=== PATIENT | male | born 1965 | race African-American/Black ===

== ENCOUNTER 2019-04-07 17:23 | Inpatient (IN) | payer BC, OTHER, MEDICAID ==
[~2019-04-07] VITALS: Ht 188 cm; Wt 79.8 kg
--- NOTE | 2019-04-07 17:26 | NUR ---
Patient to ER bed 3 to gown for evaluation. Side rails up. Report given to Eva WATSON.
[2019-04-07 17:27] VITALS: BP_SYST 145
--- NOTE | 2019-04-07 17:30 | NUR ---
Dr. Rosenbaum @ bedside for examination.
--- NOTE | 2019-04-07 17:40 | NUR ---
Patient brought in by ambulance d/t abdominal distention. Patient states he does not have any pain but patient appeared to be grimacing during assessment. Per report, patient has no nausea or vomiting. Patient able to communicate but is not able to answer certain questions. Son @ bedside. Will continue to monitor.
[2019-04-07 18:21] LABS: CALCIUM 9.6 mg/dL (8.4-11.0); CREATININE 0.8 mg/dL (0.55-1.30); POTASSIUM 3.8 mmol/L (3.5-5.1)
[2019-04-07 18:24] LABS: HEMOGLOBIN 12.6 g/dL (14.0-18.0); MEAN CORPUSCULAR HEMOGLOBIN 26 pg (27-31); MEAN CORPUSCULAR HGB CONC 32 % (32-36); MEAN CORPUSCULAR VOLUME 81 fL (79.0-98.0); RED BLOOD CELL COUNT(AUTO) 4.85 MIL/uL (4.2-6.2); RED CELL DISTRIBUTION WIDTH 14.9 % (9.0-15.0); WHITE BLOOD COUNT (AUTO) 5.8 K/uL (4.8-10.8)
[2019-04-07 18:25] LABS: ALBUMIN 2.2 g/dL (3.4-4.8); BASOPHILS % (AUTO) 0.4 % (0.0-2.0); EOSINOPHILS # (AUTO) 0.2 K/uL (0.0-0.4); EOSINOPHILS % (AUTO) 3.9 % (0.0-4.0); LYMPHOCYTES # (AUTO) 0.8 K/uL (1.0-5.5); LYMPHOCYTES % (AUTO) 13.4 % (20.5-51.5); MONOCYTES # (AUTO) 0.7 K/uL (0.0-1.0); MONOCYTES % (AUTO) 11.7 % (1.7-9.3); NEUTROPHILS # (AUTO) 4.1 K/uL (1.8-7.7); NEUTROPHILS % (AUTO) 70.6 % (40.0-70.0); PLATELET COUNT (AUTO) 238 K/uL (130-430); PROTHROMBIN TIME 9.9 SECS (9.5-12.5); TOTAL BILIRUBIN 0.3 mg/dL (0.0-1.0)
[2019-04-07] MEDS ORDERED: PIPERACILLIN/TAZO 3.375 GM in NS 50 ML IV ONE (19:00)
[2019-04-07] MEDS ORDERED: metroNIDAZOLE 500 mg/NS 100 ML IV ONE (19:00)
--- NOTE | 2019-04-07 19:10 | NUR ---
Patient will be admitted to care of Dr. Crawford. Admitted to Telemetry unit. Will go to room 114A. Summary report printed. Report will be given at bedside.
[2019-04-07 19:15] LABS: BILIRUBIN,URINE NEGATIVE (NEGATIVE); BLOOD, URINE NEGATIVE (NEGATIVE); CLARITY/URINE CLOUDY (CLEAR); COLOR,URINE YELLOW (YELLOW); GLUCOSE,URINE NEGATIVE (NEGATIVE); KETONES,URINE TRACE (NEGATIVE); LEUKOCYTE ESTERASE ,URINE 2+ (NEGATIVE); NITRITE, URINE NEGATIVE (NEGATIVE); PROTEIN URINE 2+ (NEGATIVE)
--- NOTE | 2019-04-07 19:20 | NUR ---
End of life care decisions discussed with by Dr. Rosenbaum. Opportunity for questions and concerns addressed. Patient's code status is FULL CODE, per copy of POLST paperwork completed and placed in chart.
[2019-04-07] MEDS ORDERED: CLOP300T2 PO (19:24)
[2019-04-07] MEDS ORDERED: LORA10TA7 PO (19:24)
[2019-04-07] MEDS ORDERED: LIP10 PO (19:24)
[2019-04-07] MEDS ORDERED: AMLO5TAB4 PO (19:24)
[2019-04-07] MEDS ORDERED: LEVE500T53 PO (19:24)
[2019-04-07] MEDS ORDERED: BACL10TA PO (19:24)
[2019-04-07] MEDS ORDERED: HYDR-4272 PO (19:24)
[2019-04-07] MEDS ORDERED: POLY17PO4 GT (19:24)
[2019-04-07] MEDS ORDERED: TYLL650 GT (19:24)
[2019-04-07] MEDS ORDERED: XALEYE OP (19:24)
[2019-04-07] MEDS ORDERED: SSREG SUBCUT (19:24)
[2019-04-07] MEDS ORDERED: ANT30 GT (19:24)
[2019-04-07] MEDS ORDERED: MOM PO (19:24)
[2019-04-07] MEDS ORDERED: FAMO20TA8 GT (19:24)
[2019-04-07] MEDS ORDERED: TIMO5DRO15 OP (19:24)
[2019-04-07] MEDS ORDERED: PHEN100O4 PO (19:24)
[2019-04-07] MEDS ORDERED: INSU100V11 SQ ×2 (19:24)
--- NOTE | 2019-04-07 19:24 | NUR ---
Medication reconciliation completed based upon med list sent with patient from SNF.
[2019-04-07] MEDS ORDERED: PIPERACILLIN/TAZOBACTAM 3.375 GM/VIAL (ZOSYN) IV ONE (19:35)
[2019-04-07 19:45] LABS: BACTERIA,URINE MANY /HPF (None Seen); RBC,URINE 0-3 /HPF (0-3); WBC,URINE 20-50 /HPF (0-3)
[2019-04-07 19:46] LABS: MUCUS,URINE None Seen /LPF (None Seen); URINE AMORPHOUS PHOSPHATES 3+ /HPF (None Seen)
[2019-04-07] MEDS ORDERED: NACL 0.9% 1,000 ML IV SCH (20:00)
--- NOTE | 2019-04-07 20:02 | NUR ---
ADMISSION NOTE Received patient from ER via rosendo, received report from Tatiana WATSON. Patient admitted with diagnosis of PNA/Constipation to Room 114-A. Informed RN will be Kandy. Patient/family oriented to hospital routine, call light, toileting and safety-patient/family verbalized understanding.
[2019-04-07 20:17] VITALS: BP_SYST 158; BP_SYST 169
--- NOTE | 2019-04-07 21:52 | NUR ---
Provided incontinence care to the patient. Patient is now clean and dry, resting comfortably in bed. Received Glucerna 1.2 from director housekeeping. Patient started on GTUBE feeding at 70ml/hr per MD order.
[2019-04-07] MEDS ORDERED: ALBUTEROL SULFATE 0.083% 2.5 MG/3 ML VIAL.NEB INH PRN (23:30)
[2019-04-07] MEDS ORDERED: MORPHINE 2 MG/ML INJ. SYRINGE IVP PRN (23:30)
[2019-04-07] MEDS ORDERED: ONDANSETRON HCL 4 MG/2 ML VIAL IVP PRN (23:30)
[2019-04-07] MEDS ORDERED: BISACODYL 10 MG/SUPPOSITORY RC PRN (23:45)
[2019-04-07] MEDS ORDERED: MAG-AL HYDROX/SIMETH 30 ML UDC GT PRN (23:45)
[2019-04-07] MEDS ORDERED: ACETAMINOPHEN 650 MG/20.3 ML UDC GT PRN (23:45)
[2019-04-07] MEDS ORDERED: MILK OF MAGNESIA 30 ML UDC PO PRN (23:45)
[2019-04-07 23:49] VITALS: BP_SYST 153
[2019-04-08] MEDS ORDERED: PHENYTOIN 100 MG/4 ML UDC (DILANTIN) PO SCH
--- NOTE | 2019-04-08 | NUR ---
PATIENT RESTING COMFORTABLY IN BED, AWAKE. NO SOB, NO ACUTE DISTRESS, NO SIGNS OF PAIN OR FACIAL GRIMACING NOTED. IVF INFUSING AT THE ORDERED RATE, SEE EMAR. BED IS LOCKED, IN THE LOWEST POSITION, 2X SIDE RAILS UP, BED ALARM IS ON. CALL LIGHT IS WITHIN REACH.
[2019-04-08] MEDS ORDERED: PIPERACILLIN/TAZOBACTAM 3.375 GM/VIAL (ZOSYN) IV ONE (00:33)
[2019-04-08] MEDS ORDERED: AZITHROMYCIN 500 MG/VIAL (ZITHROMAX) IV ONE (00:33)
[2019-04-08] MEDS: AZITHROMYCIN 500 MG in NS 250 ML IV SCH (00:38)
[2019-04-08] MEDS: PIPERACILLIN/TAZO 3.375/DEX-IS 50 ML IV SCH ×4 (00:38→18:36)
[2019-04-08 01:24] VITALS: BP_SYST 153
--- NOTE | 2019-04-08 02:00 | NUR ---
Patient provided incontinence care as needed. Now clean and dry, resting comfortably in bed. Call light within reach.
[2019-04-08] MEDS: NACL 0.9% 1,000 ML IV SCH ×3 (02:42→16:07)
--- NOTE | 2019-04-08 04:07 | NUR ---
Patient resting in bed, eyes closed. Breathing even and unlabored, visible chest rise and fall noted. No SOB, no acute distress, no signs of pain or facial grimacing noted. IVF infusing at ordered rate, see eMAR. gtube feeding infusing at ordered rate, see eMAR. Bed is locked, lowest position, 2x side rails up, bed alarm on. seizure pads in place. call light within reach.
--- NOTE | 2019-04-08 06:33 | NUR ---
CLOSING NOTES PATIENT RESTING COMFORTABLY IN BED, AAOX1. BREATHING EVEN AND UNLABORED WITH VISIBLE CHEST RISE AND FALL NOTED. NO SOB, NO ACUTE DISTRESS, NO SIGNS OF PAIN OR FACIAL GRIMACING NOTED. IV SITE IS INTACT, DRESSING CLEAN AND DRY, CURRENTLY INFUSING IVF PER MD ORDER, SEE EMAR FOR DETAILS. PROVIDED INCONTINENCE CARE TO THE PATIENT NEEDED. PATIENT IS NOW CLEAN AND DRY. BED IS LOCKED, IN THE LOWEST POSITION, 2X SIDE RAILS UP, BED ALARM IS ON. CALL LIGHT IS WITHIN REACH. FALL, SEIZURE, ASPIRATION, AND SAFETY PRECAUTIONS MAINTAINED. ALL NEEDS HAVE BEEN MET DURING THIS SHIFT. WILL ENDORSE CARE TO ONCOMING DAYSHIFT NURSE.
[2019-04-08 07:00] LABS: ALBUMIN 1.8 g/dL (3.4-4.8); CALCIUM 8.8 mg/dL (8.4-11.0); CREATININE 0.81 mg/dL (0.55-1.30); POTASSIUM 4.3 mmol/L (3.5-5.1); TOTAL BILIRUBIN 0.3 mg/dL (0.0-1.0)
[2019-04-08 07:13] LABS: BASOPHILS % (AUTO) 0.5 % (0.0-2.0); EOSINOPHILS # (AUTO) 0.3 K/uL (0.0-0.4); EOSINOPHILS % (AUTO) 5.6 % (0.0-4.0); HEMATOCRIT 33.5 % (36-54); HEMOGLOBIN 10.9 g/dL (14.0-18.0); LYMPHOCYTES # (AUTO) 0.9 K/uL (1.0-5.5); LYMPHOCYTES % (AUTO) 16.5 % (20.5-51.5); MEAN CORPUSCULAR HEMOGLOBIN 26 pg (27-31); MEAN CORPUSCULAR HGB CONC 33 % (32-36); MEAN CORPUSCULAR VOLUME 81 fL (79.0-98.0); MONOCYTES # (AUTO) 0.7 K/uL (0.0-1.0); MONOCYTES % (AUTO) 14.6 % (1.7-9.3); NEUTROPHILS # (AUTO) 3.2 K/uL (1.8-7.7); NEUTROPHILS % (AUTO) 62.8 % (40.0-70.0); PLATELET COUNT (AUTO) 224 K/uL (130-430); RED BLOOD CELL COUNT(AUTO) 4.15 MIL/uL (4.2-6.2); RED CELL DISTRIBUTION WIDTH 15.1 % (9.0-15.0); WHITE BLOOD COUNT (AUTO) 5.2 K/uL (4.8-10.8)
[2019-04-08 07:37] VITALS: BP_SYST 160
--- NOTE | 2019-04-08 07:39 | NUR ---
opening notes: received pt in bed, pt is aaox1, bp high at 160/89, no s/s of pain, no sob, no resp distress. pt blurt out clear curse words but does not answers to questions. abdomen slight distended, soft. no s/s of pain pain to palpation. active bowel sounds. g-tube feeding running well. no leak noted, residual about 45 cc. safety precaution in place. call light in reach. bed in low position. seizure precaution in place. side rails padded. will cont to monitor. pt.
[2019-04-08] MEDS ORDERED: LORATADINE 10 MG TABLET PO SCH (09:00)
[2019-04-08] MEDS ORDERED: POLYETHYLENE GLYCOL 3350, 17 GM/ POWD.PACK GT SCH (09:00)
[2019-04-08] MEDS ORDERED: BACLOFEN 10 MG TABLET PO SCH (09:00)
[2019-04-08] MEDS ORDERED: amLODIPine BESYLATE 5 MG TABLET PO SCH (09:00)
[2019-04-08] MEDS ORDERED: ATORVASTATIN 10 MG TABLET PO SCH (09:00)
[2019-04-08] MEDS ORDERED: CLOPIDOGREL BISULFATE 75 MG TABLET PO SCH (09:00)
[2019-04-08] MEDS: levETIRAcetam 500 MG TABLET PO SCH ×2 (09:03→21:47)
[2019-04-08] MEDS: PHENYTOIN 100 MG/4 ML UDC (DILANTIN) PO SCH ×2 (09:03→21:47)
[2019-04-08] MEDS: FAMOTIDINE 20 MG TABLET GT SCH (09:03)
--- NOTE | 2019-04-08 09:54 | NUR ---
Nutrition Update Jace Scale 15 noted. Pt admitted for pneumonia, constipation. Diet: Glucerna 1.2 at 70 ml/hr x20 HRS ONLY, Free Water Flush: 100 via GT BMI: 22.6 kg/m2 RD to follow per nutrition care standards.
[2019-04-08] MEDS ORDERED: MINERAL OIL 30 ML UDC PO ONE (10:15)
[2019-04-08] MEDS ORDERED: POLYETHYLENE GLYCOL 3350, 17 GM/ POWD.PACK PO ONE (10:15)
[2019-04-08] MEDS: INSULIN REGULAR, HUMAN 100 UNITS/ML, 10 ML VIAL (novoLIN R) SUBCUT PRN ×3 (11:18→22:39)
[2019-04-08 12:00] VITALS: BP_SYST 151
[2019-04-08 15:41] VITALS: BP_SYST 173
[2019-04-08] MEDS: VANCOMYCIN HCL 1,500 MG in NS 250 ML IV SCH (16:06)
--- NOTE | 2019-04-08 16:22 | NUR ---
CONSULT REASON FOR CONSULT: ABDOMINAL PAIN PERSON I SPOKE WITH: RM CONSULTING PHYSICIAN: DR. MURRAY [facility] EDUCATION COORDINATOR PHONE NUMBER: [phone] ORDERING PHYSICIAN: DR. VALVERDE
--- NOTE | 2019-04-08 16:25 | NUR ---
CONSULT REASON FOR CONSULT: PNEUMONIA PERSON I SPOKE WITH: SAM CONSULTING PHYSICIAN: DR. CARRASQUILLO EVENT MARKETING INTERN PHYSICIAN: [phone] ORDERING PHYSICIAN: DR. VALVERDE
[2019-04-08] MEDS ORDERED: MINERAL OIL 133 ML ENEMA RC ONE (17:45)
[2019-04-08 19:00] VITALS: BP_SYST 159
--- NOTE | 2019-04-08 19:15 | NUR ---
change of shift.pt.presents quiescent affect;calm.pt.presents g-tube;feed infusing.pt.presents iv acces;lt.forearm;iv fluid infusing.pt.present bedrest status;activity.pt.s/p cva;pt.presents rt.sided weakness.call light/telephone w/in the reach of the pt.family@bedside;/son. Addendum: 04/09/19 at 0624 by Josef Kay RN pt.presents sx /epilepsy history.sx precautions inplace.
--- NOTE | 2019-04-08 19:30 | NUR ---
CLOSING NOTES, PT ENDORSED TO NIGHT RN. PT HAS BEEN STABLE, NO C/O PAIN. NO SOB, ALL ABX GIVEN. PT ABDOMEN STILL BLOATED. FAMILY AT BEDSIDE THIS PM AND WAS UPDATED WITH PT'S STATUS. PT'S SPOUSE AT BEDSIDE AT THIS TIME UPDATED WITH PT'S POC.
[2019-04-08 20:00] VITALS: BP_SYST 159
--- NOTE | 2019-04-08 20:00 | NUR ---
pt.assessed:v/s assessed:values w/in normal limits.pt.assessed for cleanliness;pt.repositioned.g-tube assessed;intact;patent. g-tube feed infusing.iv access;locatied;ltforearm;wrapped.intact;patent;iv fluids infusing.general status stable.respiratory stratu stable;unlabored.call light./telephone placed w/in the reach of the pt:lt.side;hand.
[2019-04-08] MEDS ORDERED: MINERAL OIL 30 ML UDC PO SCH (21:00)
--- NOTE | 2019-04-08 21:00 | NUR ---
2100p medications administered via g-tube;administered absent obstruction.sx medications administered.
[2019-04-08] MEDS: [UNRECOGNIZED DRUG - REMARK] PO SCH (21:48)
[2019-04-09] VITALS (7 sets, daily range): BP systolic 130–161
--- NOTE | 2019-04-09 | NUR ---
pt.assessed.v/s assessed;values w/in normal limits.pt.assessed for cleanliness.pt.cleaned.g-tube assessed.intact;patent; residual scant;5ml.pt.repositioned.iv access accessed;intact;patent.general status stable.respiratory status stable. call light/telephone placed w/in the reach of the pt.
[2019-04-09] MEDS: AZITHROMYCIN 500 MG in NS 250 ML IV SCH (00:04)
[2019-04-09] MEDS: PIPERACILLIN/TAZO 3.375/DEX-IS 50 ML IV SCH ×3 (00:05→11:30)
--- NOTE | 2019-04-09 02:00 | NUR ---
pt.assessed.pt.assessed for cleanliness.pt.repositioned.g-tube assessed.intact;patent;g-tube feed infusing.iv access assessed; intact;patent;iv fluids infusing.general status stable.respiratory status stable.call light/telephone placed w/in the reach of the pt.
--- NOTE | 2019-04-09 04:00 | NUR ---
pt.assessed.pt.assessed for cleanliness.pt.repositioned.g-tube assessed intact;patent;g-tube feed infusing.iv access intact; patent;iv fluids infusing.general status stable.respiratory status stable.call light/telephone placed w/in the reach of the pt.
[2019-04-09] MEDS: VANCOMYCIN HCL 1,500 MG in NS 250 ML IV SCH ×2 (04:17→16:12)
[2019-04-09] MEDS: [UNRECOGNIZED DRUG - REMARK] PO SCH (05:48)
[2019-04-09] MEDS: INSULIN REGULAR, HUMAN 100 UNITS/ML, 10 ML VIAL (novoLIN R) SUBCUT PRN ×4 (05:58→20:27)
--- NOTE | 2019-04-09 06:04 | NUR ---
pt.assessed.pt.presents quiescent affect;pt.assessed for cleanliness.pt.cleaned.g-tube assessed feed infusing. pt.repositioned iv fluids infusing.i have assessed the blood glucose;222mg/dl.i have administered 4-units regular insulin.call light/telephone placed w/in the reach of the pt.
[2019-04-09 06:39] LABS: BASOPHILS % (AUTO) 0.3 % (0.0-2.0); EOSINOPHILS # (AUTO) 0.3 K/uL (0.0-0.4); EOSINOPHILS % (AUTO) 6.7 % (0.0-4.0); HEMATOCRIT 36.3 % (36-54); LYMPHOCYTES # (AUTO) 0.7 K/uL (1.0-5.5); LYMPHOCYTES % (AUTO) 17.7 % (20.5-51.5); MEAN CORPUSCULAR HEMOGLOBIN 26 pg (27-31); MEAN CORPUSCULAR HGB CONC 33 % (32-36); MEAN CORPUSCULAR VOLUME 79 fL (79.0-98.0); MONOCYTES # (AUTO) 0.6 K/uL (0.0-1.0); MONOCYTES % (AUTO) 16.7 % (1.7-9.3); NEUTROPHILS # (AUTO) 2.2 K/uL (1.8-7.7); NEUTROPHILS % (AUTO) 58.6 % (40.0-70.0); PLATELET COUNT (AUTO) 224 K/uL (130-430); RED BLOOD CELL COUNT(AUTO) 4.58 MIL/uL (4.2-6.2); WHITE BLOOD COUNT (AUTO) 3.8 K/uL (4.8-10.8)
[2019-04-09 06:55] LABS: ALBUMIN 1.9 g/dL (3.4-4.8); CREATININE 0.78 mg/dL (0.55-1.30); POTASSIUM 4.1 mmol/L (3.5-5.1); TOTAL BILIRUBIN 0.4 mg/dL (0.0-1.0)
--- NOTE | 2019-04-09 07:18 | NUR ---
Opening Note received bedside SBAR report from cnc machinist 2nd shift RN, patient resting in bed, respirations even and unlabored on room air, no acute distress noted, side rails padded, room close to nurses station, educated patient on use of call light and asked to call for assistance, patient verbalized understanding, call light in reach, bed in low and locked position, bed alarm on.
[2019-04-09] MEDS ORDERED: MILK OF MAGNESIA 30 ML UDC GT PRN (07:48)
[2019-04-09] MEDS ORDERED: [UNRECOGNIZED DRUG - REMARK] GT SCH (07:49)
--- NOTE | 2019-04-09 08:01 | NUR ---
Physician Rounds Dr. Smith at bedside examining patient, patient to have KUB today, per Dr. Smith if KUB shows fecal impaction then manual disimpaction and enema should be given after.
[2019-04-09] MEDS ORDERED: POLYETHYLENE GLYCOL 3350, 17 GM/ POWD.PACK PO SCH (09:00)
[2019-04-09] MEDS ORDERED: POLYETHYLENE GLYCOL 3350, 17 GM/ POWD.PACK GT SCH (09:00)
--- NOTE | 2019-04-09 09:08 | NUR ---
Physician Rounds Dr. Butcher at bedside examining patient.
[2019-04-09] MEDS: PHENYTOIN 100 MG/4 ML UDC (DILANTIN) GT SCH ×2 (09:12→20:20)
[2019-04-09] MEDS: levETIRAcetam 500 MG TABLET GT SCH ×2 (09:13→20:21)
[2019-04-09] MEDS: MINERAL OIL 30 ML UDC GT SCH ×2 (09:13→20:23)
[2019-04-09] MEDS: BACLOFEN 10 MG TABLET GT SCH (09:13)
[2019-04-09] MEDS: LORATADINE 10 MG TABLET GT SCH (09:13)
[2019-04-09] MEDS: FAMOTIDINE 20 MG TABLET GT SCH (09:13)
[2019-04-09] MEDS: ATORVASTATIN 10 MG TABLET GT SCH (09:14)
[2019-04-09] MEDS: CLOPIDOGREL BISULFATE 75 MG TABLET GT SCH (09:14)
[2019-04-09] MEDS: amLODIPine BESYLATE 5 MG TABLET GT SCH (09:14)
--- NOTE | 2019-04-09 09:38 | NUR ---
CONSULTATION PAGED REASON FOR CONSULTATION:SEPSIS WAS CONSULT CALLED?Y PERSON WHO WAS NOTIFIED:YONIS CONSULTING PHYSICIAN:MATT MITCHELL LOAN INTERVIEWER MORTGAGE SPECIALTY:ID LOAN INTERVIEWER MORTGAGE PHONE NUMBER:[phone] REQUESTING PHYSICIAN:JONATHAN TESFAYE
--- NOTE | 2019-04-09 10:48 | NUR ---
[facility] WAS CALL[facility] RE: VERIFY THE TUBE FEEDING - DIABETIC SOURCE @ 70 CC/H. SPOKE TO
--- NOTE | 2019-04-09 11:08 | NUR ---
RN Rounds patient resting in bed, no acute distress noted, no pain noted using FLACC scale.
--- NOTE | 2019-04-09 12:57 | NUR ---
Dietitian Recommendations *Recommend Glucerna 1.2 at 70ml/hr (goal rate for 24 hr), Prosource QD, FWF 150ml Q4H via GT. Provides: 2076 kcal, 116 gm protein and 2282ml free water daiily. Meets: 87% of upper end of estimated calories and 97% of upper end of estimated protein needs. *Increase fluids for constipation. Please see Nutritional Assessment for details. HI, RD
--- NOTE | 2019-04-09 12:58 | NUR ---
RN Rounds patient resting in bed, respirations even and unlabored on room air, no acute distress noted.
--- NOTE | 2019-04-09 14:02 | NUR ---
Physician Rounds Dr. Monroe at bedside examining patient.
[2019-04-09] MEDS ORDERED: FUROSEMIDE 20 MG/2 ML VIAL IVP ONE (14:30)
--- NOTE | 2019-04-09 16:21 | NUR ---
Tap water enema educated patient on purpose and procedure for tap water enema, patient verbalized understanding, tap water enema completed, patient had large amount of green loose stool, attempted manual disimpaction per orders, no solid stool present, patient cleaned and linen changed, repositioned patient, patient tolerated well, no acute distress noted.
--- NOTE | 2019-04-09 17:33 | NUR ---
Incontinent of bowel and bladder patient incontinent of bowel and bladder, patient cleaned and linen changed, repositioned patient, patient tolerated well, HOB elevated, heels elevated, no acute distress noted.
[2019-04-09] MEDS: AMPICILLIN SODIUM 1 GM in NS 50 ML IV SCH ×2 (17:51→23:37)
--- NOTE | 2019-04-09 18:22 | NUR ---
Tube Feeding new tube feeding and new tubing hung at this time, patient has zero residual from tube feeding, tube feeding infusing well, HOB elevated, no acute distress noted.
--- NOTE | 2019-04-09 19:00 | NUR ---
change of shift.pt.presents quiescent affect;calm.pt.present g-tube fed.pt.presents iv access.pt.presents hx;seizure/epilepsy activity;sx precaution in place.pt.presrtn bedbound activity status.general status stable.respiratory status stable;unlabored@room air.opt,presents hx;s/p cva;rt.sided hemiplegia.therefore;call light/telephone placed w/in the reach of th tp.lt.side;hand.
--- NOTE | 2019-04-09 19:20 | NUR ---
Closing Note bedside SBAR report given to receiving RN, patient resting in bed, no acute distress noted, HOB elevated, tube feeding infusing well, side rails padded, room close to nurses station, educated patient on use of call light and asked to call for assistance, patient verbalized understanding, call light in reach, bed in low and locked position, bed alarm on, care endorsed to mini shifter RN.
--- NOTE | 2019-04-09 20:00 | NUR ---
pt.assessed.v/s assessed:b/p values slight elevated.i have assessed the g-tube;intact;patent;g-tube feed infusing:rate;70ml/hr. i have assessed the iv access;intact;patent;iv fluids infusing.pt./assessed for cleanliness.pt.repositioned.general status stable. respiratory status stable.call light/telephone placed w/in the reach of the pt.lt.side;hand.pt.preset hx;s/p cva;rt.sided hemiplegia. speech slurred;unintelligible.
--- NOTE | 2019-04-09 21:00 | NUR ---
2100p medication administered via the g-tube;g-tube intact;patent:no resistance. g-tube feed residual minimal;5ml.
--- NOTE | 2019-04-09 22:00 | NUR ---
pt.assessed.pt.assessed for cleanliness.pt.cleaned.pt.repositioned.g-tube assessed;intact;patent;g-tube feed infusing iv access assessed intact;patent of fluids infusing.general status stable.respiratory status stale;unlabored. call light/telephone placed w/in the reach of the pt.lt.side;hand. Addendum: 04/10/19 at 0206 by Josef Kay RN i have cleansed the g-tube site.i have changed the g-tube dsg.
--- NOTE | 2019-04-10 | NUR ---
pt.assessed.v/s assessed;values w/in normal limits.b/p values noted.pt.assessed for cleanliness.pt.repositioned. g-tube assessed intact;patent;g-tube feed infusing.i assessed iv access;intact;patent;iv fluids infusing. general status stable.respiratory status stable;unlabored.call light./telephone placed w/in the reach of the pt. lt.side;hand.
--- NOTE | 2019-04-10 02:00 | NUR ---
pt.assessed.pt.assessed for cleanliness.pt,.repositioned.i have assessed the g-tube;intact;patent;g-tube feed infusing.i have assessed the iv access;intact;patent iv fluids infusing.general status stable.respiratory status stable;unlabored.call light/ telephone placed w/in the reach of the pt;lt.side;hand.
[2019-04-10] MEDS: VANCOMYCIN HCL 1,500 MG in NS 250 ML IV SCH (03:09)
--- NOTE | 2019-04-10 04:00 | NUR ---
pt.assessed.pt.assessed for cleanliness.pt.cleaned.pt.repositioned.i have assessed the g-tube intact;patent.i have administered the [id number]. i have assessed the iv access;intact;patent;iv fluids infusing.general status stable.respiratory status stable.call light/telephone placed w/in the reach of the pt.
[2019-04-10] MEDS: AMPICILLIN SODIUM 1 GM in NS 50 ML IV SCH ×4 (05:06→23:40)
[2019-04-10] MEDS: INSULIN REGULAR, HUMAN 100 UNITS/ML, 10 ML VIAL (novoLIN R) SUBCUT PRN ×4 (06:07→20:44)
--- NOTE | 2019-04-10 06:34 | NUR ---
pt.assessed.pt.assessed for cleanliness.pt.repositioned.g-tube assessed;intact;patent;g-tube feed infusing.iv access assessed intact;patent; iv fluids infusing.i have assessed the blood glucose;value;294mg/dl.i have administered 6-units;regular insulin.general status stable. respiratory status stable.call light/telephone placed /win the reach of the pt.lt.side;hand.
[2019-04-10 06:58] LABS: BASOPHILS % (AUTO) 0.7 % (0.0-2.0); EOSINOPHILS # (AUTO) 0.2 K/uL (0.0-0.4); EOSINOPHILS % (AUTO) 5.6 % (0.0-4.0); HEMATOCRIT 35.3 % (36-54); HEMOGLOBIN 11.7 g/dL (14.0-18.0); LYMPHOCYTES # (AUTO) 0.6 K/uL (1.0-5.5); LYMPHOCYTES % (AUTO) 16.4 % (20.5-51.5); MEAN CORPUSCULAR HEMOGLOBIN 26 pg (27-31); MEAN CORPUSCULAR HGB CONC 33 % (32-36); MEAN CORPUSCULAR VOLUME 80 fL (79.0-98.0); MONOCYTES # (AUTO) 0.6 K/uL (0.0-1.0); MONOCYTES % (AUTO) 16.6 % (1.7-9.3); NEUTROPHILS # (AUTO) 2.1 K/uL (1.8-7.7); NEUTROPHILS % (AUTO) 60.7 % (40.0-70.0); PLATELET COUNT (AUTO) 236 K/uL (130-430); RED BLOOD CELL COUNT(AUTO) 4.41 MIL/uL (4.2-6.2); RED CELL DISTRIBUTION WIDTH 14.8 % (9.0-15.0); WHITE BLOOD COUNT (AUTO) 3.5 K/uL (4.8-10.8)
--- NOTE | 2019-04-10 07:36 | NUR ---
PATIENT IS AWAKE, A/OX1 . ON ROOM AIR. IV ON LEFT FA, #20. SZ PADS COVERING THE SIDE RAILS. BR REST. POC IS INSTRUCTED. BED LOCKED AT THE LOWEST POSITION, CALL LIGHT IN PLACE, WILL CONTINUE TO MONITOR.
[2019-04-10 07:42] LABS: CALCIUM 9.1 mg/dL (8.4-11.0); CREATININE 0.8 mg/dL (0.55-1.30); POTASSIUM 4.3 mmol/L (3.5-5.1)
[2019-04-10] MEDS ORDERED: GOLYTELY / COLYTE SOLUTION 4 LITERS PO ONE (08:00)
[2019-04-10] MEDS: CLOPIDOGREL BISULFATE 75 MG TABLET GT SCH (08:17)
[2019-04-10] MEDS: FAMOTIDINE 20 MG TABLET GT SCH (08:17)
[2019-04-10] MEDS: PHENYTOIN 100 MG/4 ML UDC (DILANTIN) GT SCH ×2 (08:17→20:28)
[2019-04-10] MEDS: amLODIPine BESYLATE 5 MG TABLET GT SCH (08:18)
[2019-04-10] MEDS: ATORVASTATIN 10 MG TABLET GT SCH (08:18)
[2019-04-10] MEDS: MINERAL OIL 30 ML UDC GT SCH ×2 (08:18→20:28)
[2019-04-10] MEDS: levETIRAcetam 500 MG TABLET GT SCH ×2 (08:18→20:29)
[2019-04-10] MEDS: LORATADINE 10 MG TABLET GT SCH (08:18)
[2019-04-10] MEDS: BACLOFEN 10 MG TABLET GT SCH (08:18)
--- NOTE | 2019-04-10 10:00 | NUR ---
Patient is turned and repositioned for comfort.
[2019-04-10 11:30] VITALS: BP_SYST 155
--- NOTE | 2019-04-10 12:00 | NUR ---
Blood sugar 302. 8 units is given per sliding scale.
--- NOTE | 2019-04-10 14:00 | NUR ---
Patient passed a BM. turned and repositioned for comfort.
--- NOTE | 2019-04-10 16:16 | NUR ---
GI DOCTOR PAGED CALLED [facility] AT [phone]SNYDER WRIGHT ADAM COMPOUNDER FLAVORINGS.
[2019-04-10 16:21] VITALS: BP_SYST 163
--- NOTE | 2019-04-10 16:46 | NUR ---
Dr. Smith called back. Instructed to finish the prescribed dosage of Golytely to disimpact the fecal impaction.
--- NOTE | 2019-04-10 17:20 | NUR ---
blood sugar 190. 2 units of RI will be given per sliding scale.
[2019-04-10] MEDS: VANCOMYCIN HCL 1,250 MG in NS 250 ML IV SCH (17:39)
[2019-04-10] MEDS: cloNIDine HCL 0.1 MG TABLET PO PRN ×2 (17:58→23:41)
--- NOTE | 2019-04-10 18:50 | NUR ---
1350ml of Golytely is given from 30 to now. Will delegate to next shift.
--- NOTE | 2019-04-10 19:35 | NUR ---
ROUNDS PATIENT RESTING COMFORTABLY IN BED, VITALS STABLE, CONFUSED WITH GARBLED WORDS, NO SIGNS OF ANY PAIN AND DISCOMFORT NOTED. ASSESSMENT DONE AND DOCUMENTED. SEE FLOWSHEET. NEEDS ATTENDED TO. TURNED AND REPOSITIONED AND MADE COMFORTABLE. SAFETY AND FALL PRECAUTION MEASURES IN PLACED. BED IN LOW AND LOCKED POSITION. BED ALARM ON. CALL LIGHT PLACED WITHIN REACH.
[2019-04-10 19:48] VITALS: BP_SYST 162
--- NOTE | 2019-04-10 21:13 | NUR ---
MEDICATION DUE MEDICATIONS GIVEN PER G TUBE ORDERED, TOLERATED WELL. WILL CONTINUE TO MONITOR.
[2019-04-10 23:55] VITALS: BP_SYST 171
--- NOTE | 2019-04-11 00:12 | NUR ---
PATIENT RESTING: Patient resting quietly. No acute distress noted. Vital signs within normal range.
--- NOTE | 2019-04-11 02:13 | NUR ---
ROUNDS PATIENT ASLEEP, NOT IN DISTRESS, RESPIRATIONS EVEN AND UNLABORED. WILL CONTINUE TO MONITOR.
--- NOTE | 2019-04-11 04:15 | NUR ---
ROUNDS PATIENT ASLEEP, VITALS STABLE, NO SIGNS OF ANY PAIN AND DISCOMFORT NOTED. WILL CONTINUE TO MONITOR.
[2019-04-11] MEDS: AMPICILLIN SODIUM 1 GM in NS 50 ML IV SCH ×2 (05:14→12:24)
[2019-04-11] MEDS: VANCOMYCIN HCL 1,250 MG in NS 250 ML IV SCH (06:00)
--- NOTE | 2019-04-11 06:58 | NUR ---
CLOSING NOTES PATIENT RESTING AT THIS TIME, VITALS STABLE, NO SIGNS OF ANY PAIN NOTED. ALL NEEDS ATTENDED TO. SAFETY MEASURES MAINTAINED. WILL ENDORSE TO INCOMING SHIFT NURSE.
[2019-04-11 08:00] VITALS: BP_SYST 154
[2019-04-11] MEDS: FAMOTIDINE 20 MG TABLET GT SCH (08:48)
[2019-04-11] MEDS: BACLOFEN 10 MG TABLET GT SCH (08:48)
[2019-04-11] MEDS: ATORVASTATIN 10 MG TABLET GT SCH (08:48)
[2019-04-11] MEDS: CLOPIDOGREL BISULFATE 75 MG TABLET GT SCH (08:48)
[2019-04-11] MEDS: amLODIPine BESYLATE 5 MG TABLET GT SCH (08:49)
[2019-04-11] MEDS: levETIRAcetam 500 MG TABLET GT SCH (08:52)
[2019-04-11] MEDS: PHENYTOIN 100 MG/4 ML UDC (DILANTIN) GT SCH (08:52)
[2019-04-11] MEDS: LORATADINE 10 MG TABLET GT SCH (08:52)
[2019-04-11] MEDS: MINERAL OIL 30 ML UDC GT SCH (08:53)
[2019-04-11] MEDS ORDERED: POLYETHYLENE GLYCOL 3350, 17 GM/ POWD.PACK PO SCH (09:00)
[2019-04-11] MEDS ORDERED: NACL 0.9% 1,000 ML IV ONE (11:30)
[2019-04-11] MEDS: INSULIN REGULAR, HUMAN 100 UNITS/ML, 10 ML VIAL (novoLIN R) SUBCUT PRN (12:33)
[2019-04-11 12:44] VITALS: BP_SYST 143
--- NOTE | 2019-04-11 12:59 | NUR ---
SNF Availability: Patient is going back to [facility] - Room [address] [facility] [place] [address] (Nurse to call for report) Medic 1 ambulance will picker at 4:45pm Nurse Leonid made aware. Ladonna Wilson, HCP [employer] Test Grader [phone]
--- NOTE | 2019-04-11 13:03 | NUR ---
Nutrition F/U RD reviewed pt's current EMR including diet Hx, physician notes, nursing notes, pertinent labs/meds/procedures, care trends and care activity. Current Diet Order: Glucerna 1.2 at 70ml/hr x 20 hrs, FWF 100ml via GT x 3 days Subjective information: Pt seen in bed, awake but appeared confused. TF hung but not infusing during visit. Per RN report, TF has been held since last night, d/t diarrhea. RN also reported that pt had golytely yesterday and has only taken effect early this morning. No residual noted. Water flushes provided every [address] asked RN to clarify FWF and place on EN regimen order. RD also asked RN to re-start EN. RN to verify w/ MD. RD called MD office for EN rec today and 04/09, awaiting MD call back. Estimated Energy Expenditure (kcals/day) 7125-3690 kcal/day (25-30 kcal/kg CBW for maintenance) Estimated Protein Required (g/day) 80-120 gm/day (1-1.5 gmkg CBW for skin integrity) Estimated Fluid Required (l/day) 2.4-2.8 L/day (30-35 kcal/kg CBW for constipation) Problem/Etiology/Signs/Symptoms Constipation r/t unknown etiology AEB primary Dx of severe constipation and c/o abd discomfort [facility]. (*ongoing) Increased protein needs r/t skin integrity AEB skin impairments to lower sacrum and low Jace score. (*ongoing) Inadequate EN infusion r/t procedure AEB EN intake meeting <75% of estimated needs and EN hung but not infusing at time of visit. (*new) Expected Outcomes/Goals Monitor EN regimen tolerance and intake w/ goal of pt meeting at least 75% of estimated needs, labs trending WNL, normal GI function, skin integrity/wt maintenance. Dietitian Recommendations *Recommend Glucerna 1.2 at 70ml/hr (goal rate for 24 hr), Prosource QD, FWF 150ml Q4H via GT. Provides: 2076 kcal, 116 gm protein and 2282ml free water daiily. Meets: 87% of upper end of estimated calories and 97% of upper end of estimated protein needs. *Increase fluids to rehydrate. Follow Up High Risk: F/U in 2-3days
--- NOTE | 2019-04-11 13:11 | NUR ---
Dietitian Recommendations *Recommend Glucerna 1.2 at 70ml/hr (goal rate for 24 hr), Prosource QD, FWF 150ml Q4H via GT. Provides: 2076 kcal, 116 gm protein and 2282ml free water daiily. Meets: 87% of upper end of estimated calories and 97% of upper end of estimated protein needs. *Increase fluids to rehydrate. Please see Nutrition F/U not for details HI, RD
[2019-04-11 13:20] VITALS: BP_SYST 154
--- NOTE | 2019-04-11 17:10 | NUR ---
PT TRANSFERRED Report given to JAI. Transfer packet with Transfer Orders and Medication Reconciliation form given to EMT with report. Exitcare provided. [facility] ID band removed, replaced with ID band with pt's name and . IV catheter removed, intact and dressing applied, no active bleeding. All belongings sent with patient. Patient left floor via gurney escorted by EMT in no distress.
[2019-04-11 17:16] VITALS: BP_SYST 146
== END 2019-04-11 17:25 | DRG 871 ==
LOC: SED 17:23 → STU 19:04 → SMU 04-08 21:35
PROVIDERS: ADMIT Internal Medicine; ATTEND Internal Medicine
DX: A41.9 Sepsis, unspecified organism (principal); J69.0 Pneumonitis due to inhalation of food and vomit; J96.90 Respiratory failure, unspecified, unspecified whether with hypoxia or hypercapnia; N39.0 Urinary tract infection, site not specified; E87.1 Hypo-osmolality and hyponatremia; E46 Unspecified protein-calorie malnutrition; I69.351 Hemiplegia and hemiparesis following cerebral infarction affecting right dominant side; D64.9 Anemia, unspecified; B95.1 Streptococcus, group B, as the cause of diseases classified elsewhere; B95.7 Other staphylococcus as the cause of diseases classified elsewhere; E11.51 Type 2 diabetes mellitus with diabetic peripheral angiopathy without gangrene; E78.5 Hyperlipidemia, unspecified; E86.0 Dehydration; G40.909 Epilepsy, unspecified, not intractable, without status epilepticus; H40.9 Unspecified glaucoma; I10 Essential (primary) hypertension; K56.41 Fecal impaction; R13.10 Dysphagia, unspecified; F32.9 Major depressive disorder, single episode, unspecified; E11.39 Type 2 diabetes mellitus with other diabetic ophthalmic complication; Z79.4 Long term (current) use of insulin; H42 Glaucoma in diseases classified elsewhere; Z68.22 Body mass index [BMI] 22.0-22.9, adult
CPT/HCPCS: 36415; 71045; 74018; 80048; 80053; 80202-TC; 81000-TC; 82962; 83605; 83880; 84484; 85025; 85610-TC; 85730-TC; 87040-TC; 87081; 87086; 87186-TC; 93005; 93306; 94760; 96361; 96374; 96375; 99285; G0378; J0290; J0456; J1815; J1940; J2543; J3370; J3490; J7030; J7050; J7060

== ENCOUNTER 2019-04-16 20:39 | Inpatient (IN) | payer BC, OTHER, MEDICAID ==
[~2019-04-16] VITALS: Ht 188 cm; Wt 84.8 kg
[~2019-04-16 20:39] MED LIST: AMLO5TAB4 PO; ANT30 GT; BACL10TA PO; CLOP300T2 PO; FAMO20TA8 GT; HYDR-4272 PO; INSU100V11 SQ; LEVE500T53 PO; LIP10 PO; LORA10TA7 PO; MOM PO; PHEN100O4 PO; POLY17PO4 GT; SSREG SUBCUT; TIMO5DRO15 OP; TYLL650 GT; XALEYE OP
--- NOTE | 2019-04-16 20:43 | NUR ---
Placed in room 7 . Placed on awake overnight monitor, blood pressure machine and pulse oximeter. To gown for exam. Side rails up. Report given to Holli WATSON.
[2019-04-16] MEDS ORDERED: PIPERACILLIN/TAZO 3.38 GM in D5W 50 ML IV ONE (20:45)
[2019-04-16] MEDS ORDERED: NS 1000 ML IV.SOLN IV ONE (20:45)
[2019-04-16] MEDS ORDERED: VANCOMYCIN HCL 1,000 MG in D5W 250 ML IV ONE (20:45)
[2019-04-16 20:46] VITALS: BP_SYST 147
[2019-04-16] MEDS ORDERED: PIPERACILLIN/TAZOBACTAM 3.375 GM/VIAL (ZOSYN) IV ONE (20:59)
--- NOTE | 2019-04-16 21:00 | NUR ---
Pt BIB from [place] c/o fever and vomiting. Pt came in with 22g angiocath on left hand that was placed out on the field. Pt is non-verbal, contracted to right upper extremity. Pt also has G-tube. No other injuries/complaints per patient or noted.
[2019-04-16] MEDS ORDERED: VANCOMYCIN HCL 1000 MG/VIAL IV ONE (21:02)
--- NOTE | 2019-04-16 21:03 | NUR ---
ER Dr. Riley at bedside examining patient.
[2019-04-16] MEDS ORDERED: ONDANSETRON HCL 4 MG/2 ML VIAL ONE (21:09)
--- NOTE | 2019-04-16 21:22 | NUR ---
Per Dr. Riley, lactic acid is 1.8. No need for fluid resuscitation. Per Osvaldo, one liter of normal saline to be given.
--- NOTE | 2019-04-16 21:23 | NUR ---
xray at bedside. Pt tolerated well.
[2019-04-16] MEDS ORDERED: ONDANSETRON HCL 4 MG/2 ML VIAL IVP ONE (21:30)
[2019-04-16 21:43] LABS: HEMATOCRIT 36.9 % (36-54); HEMOGLOBIN 12.3 g/dL (14.0-18.0); MEAN CORPUSCULAR HEMOGLOBIN 27 pg (27-31); MEAN CORPUSCULAR HGB CONC 33 % (32-36); MEAN CORPUSCULAR VOLUME 80 fL (79.0-98.0); PLATELET COUNT (AUTO) 241 K/uL (130-430); RED BLOOD CELL COUNT(AUTO) 4.64 MIL/uL (4.2-6.2); RED CELL DISTRIBUTION WIDTH 15.5 % (9.0-15.0)
[2019-04-16 21:48] LABS: CALCIUM 8.9 mg/dL (8.4-11.0); CREATININE 0.91 mg/dL (0.55-1.30); POTASSIUM 3.7 mmol/L (3.5-5.1); PROTHROMBIN TIME 10.3 SECS (9.5-12.5)
[2019-04-16 21:53] LABS: TOTAL BILIRUBIN 0.4 mg/dL (0.0-1.0)
[2019-04-16] MEDS ORDERED: LORazepam 2 MG/ML VIAL (FOR ER USE) IVP ONE (22:00)
--- NOTE | 2019-04-16 22:39 | NUR ---
# 16 FR Mary catheter with use of sterile technique. Immediate return of 200 cc yellow urine noted. Bedside drainage bag placed below level of bladder. Urine sample collected and sent to lab. Pt tolerated procedure well.
[2019-04-16 22:42] LABS: BAND % (MANUAL) 10 % (0-6)
[2019-04-16 22:43] LABS: BASOPHILS % (MANUAL) 0 % (0-2); EOSINOPHILS % (MANUAL) 0 % (0-7); LYMPHOCYTES % (MANUAL) 8 % (20-46); MONOCYTES % (MANUAL) 18 % (0-11)
[2019-04-16 22:49] LABS: BILIRUBIN,URINE NEGATIVE (NEGATIVE); BLOOD, URINE 1+ (NEGATIVE); CLARITY/URINE CLEAR (CLEAR); COLOR,URINE YELLOW (YELLOW); GLUCOSE,URINE TRACE (NEGATIVE); KETONES,URINE 2+ (NEGATIVE); LEUKOCYTE ESTERASE ,URINE NEGATIVE (NEGATIVE); NITRITE, URINE NEGATIVE (NEGATIVE); PH,URINE 7.5 (5.0-8.0); PROTEIN URINE 3+ (NEGATIVE); UROBILINOGEN,URINE 0.2 (0.2-1.0)
[2019-04-16 22:58] LABS: BACTERIA,URINE MODERATE /HPF (None Seen); WBC,URINE 0-3 /HPF (0-3)
[2019-04-16] MEDS ORDERED: ACETAMINOPHEN 325 MG TABLET GT PRN (23:00)
[2019-04-16] MEDS ORDERED: LevALBUTEROL HCL 1.25 MG/0.5 ML *CONC.* VIAL.NEB (XOPENEX CONC.) INH SCH (23:00)
[2019-04-16] MEDS ORDERED: KCL 20 mEq in NS 1000 mL 1,000 ML IV SCH (23:00)
[2019-04-16] MEDS ORDERED: AZITHROMYCIN 500 MG in NS 250 ML IV ONE (23:00)
[2019-04-16] MEDS ORDERED: INSULIN REGULAR, HUMAN 100 UNITS/ML, 10 ML VIAL (humuLIN R) SUBCUT PRN (23:00)
[2019-04-16] MEDS ORDERED: AZITHROMYCIN 500 MG/VIAL (ZITHROMAX) IV ONE (23:03)
[2019-04-16] MEDS ORDERED: ACETAMINOPHEN 325 MG TABLET PO ONE (23:15)
[2019-04-17] VITALS (14 sets, daily range): BP systolic 112–193
[2019-04-17] MEDS ORDERED: PIPERACILLIN/TAZO 3.375 GM in NS 50 ML IV SCH ×2
[2019-04-17] MEDS ORDERED: ACETAMINOPHEN 325 MG TABLET GT PRN (00:30)
[2019-04-17] MEDS ORDERED: ACETAMINOPHEN 650 MG/20.3 ML UDC GT ONE (00:30)
--- NOTE | 2019-04-17 00:30 | NUR ---
Transfer to Telemetry via ACLS protocol. Licensed nurse present. IV present no signs or symptoms of infiltration.
--- NOTE | 2019-04-17 00:30 | NUR ---
Patient will be admitted to care of Dr. Butcher. Admitted to Telemetry unit. Will go to room 102 A. Belongings list completed. Summary report printed. Report will be given at bedside.
--- NOTE | 2019-04-17 00:35 | NUR ---
ADMISSION NOTE Received patient from ER via rosendo, received report from Holli WATSON. Patient admitted with diagnosis of sepsis. Patient oriented to hospital routine, call light, toileting and safety.
[2019-04-17] MEDS ORDERED: ACETAMINOPHEN 650 MG/20.3 ML UDC ONE (00:39)
--- NOTE | 2019-04-17 00:45 | NUR ---
Opening notes Patient resting comfortably in bed. Patient able to verbalize wants and needs by nodding head. No signs of distress noted. Breathing even and unlabored. IV patent and intact. G-tube intact. Mary catheter in place draining yellow urine. Applied ice packs to patient for temperature of 100.4. Cough noted. Oriented patient to call light and room. Safety precautions in place.
[2019-04-17] MEDS ORDERED: VANCOMYCIN HCL 1,000 MG in NS 250 ML IV SCH ×5 (01:00→03:00)
--- NOTE | 2019-04-17 02:00 | NUR ---
Coughing Patient heard coughing from nursing station. Asked patient if he wanted anything for cough, patient nodded no. Patient denies nausea at this time. No other needs. Call light with the patient. Safety precautions in place.
[2019-04-17] MEDS ORDERED: PIPERACILLIN/TAZOBACTAM 3.375 GM/VIAL (ZOSYN) IV ONE (02:04)
[2019-04-17] MEDS ORDERED: VANCOMYCIN HCL 1000 MG/VIAL IV ONE (02:04)
[2019-04-17] MEDS: NACL 0.9% 1,000 ML IV SCH ×3 (02:05→19:33)
--- NOTE | 2019-04-17 04:00 | NUR ---
Temp at this time 97.8 No other needs at this time. Patient continues to sleep. Call light with the patient. Safety precautions in place.
[2019-04-17] MEDS: PIPERACILLIN/TAZO 3.375 GM in NS 50 ML IV SCH ×4 (04:47→22:04)
--- NOTE | 2019-04-17 05:17 | NUR ---
CONSULTATION PAGED/CALLED Reason for Consultation: SEPSIS Person Who was Notified:GIOVANNA Consulting Physician: DOCTOR ONEL BURGOS IS DIPPER CLOCK AND WATCH HANDS Continuous Yarn Dyeing Machine Operator Specialty:ID Ordering Physician: NICOLEL
--- NOTE | 2019-04-17 06:01 | NUR ---
Resting Patient resting in bed. Requests to have apple juice and water. Informed patient he is NPO and should not have anything by mouth until the doctor sees him. Patient verbalized understanding. Offered patient mouth swabs to keep mouth from getting dry. No other needs. Call light with the patient. Safety precautions in place.
--- NOTE | 2019-04-17 06:56 | NUR ---
Closing notes Patient resting in bed and coughing. Patient does not want anything for the cough. No signs of distress noted. Breathing even and unlabored. IV patent and intact, infusing fluids. All needs met throughout the shift. Call light with the patient. Safety precautions in place. Will endorse care to day shift RN.
--- NOTE | 2019-04-17 07:35 | NUR ---
OPENING NOTE Patient resting in the bed,. No acute distress. HOB elevated. Skin warm and dry to touch. IV intact to left hand, no redness, no swelling, no drainage. On NS at 100ml/hr, infusing well. F/C intact, drainage gravity with yellow urine, no hematuria noted. Safety measure maintained. Bed locked in low position, side rails up, bed alarm on. Call light within reached. Will continue to monitor.
--- NOTE | 2019-04-17 08:15 | NUR ---
MIZK=092.8 Tylenol 650mg via GT given as ordered. No acute distress. Cooling measure maintained. Safety measure maintained. Call light within reached. Bed locked in low position, side rails up, bed alarm on. Call light within reached. Continue to monitor.
--- NOTE | 2019-04-17 09:15 | NUR ---
RECHECKED TEMP=99.8 Patient no acute distress. Cooling measure maintained. HOB elevated. F/C intact, drain gravity. IV intact, IVF infusing well. Safety measure maintained. Bed locked in low position, side rails up, bed alarm on. Call light within reached. Continue to monitor.
--- NOTE | 2019-04-17 10:05 | NUR ---
Nutrition Update Jace Scale 16 noted. Pt admitted for sepsis. Diet: NPO BMI: 24.1 kg/m2 RD to follow per nutrition care standards.
--- NOTE | 2019-04-17 10:25 | NUR ---
CLEANED PATIENT Clean patient with me and BRANDI, BM noted. Good herring and perirectal care provided. Procedure tolerated well. Safety measure maintained. Call light within reached. Bed locked in low position, side rails up, bed alarm on. Continue to monitor.
[2019-04-17] MEDS: VANCOMYCIN HCL 1,500 MG in NS 250 ML IV SCH ×2 (10:28→22:52)
--- NOTE | 2019-04-17 10:31 | NUR ---
CONSULTATION PAGED/CALLED Reason for Consultation: RULE OUT ENDOCARDITIS Person Who was Notified: SPOKE WITH POORNIMA FROM OFFICE . Consulting Physician: Sports Development Officer Specialty: CARDIO Ordering Physician:
[2019-04-17] MEDS ORDERED: BACLOFEN 10 MG TABLET PO ONE (10:45)
[2019-04-17] MEDS ORDERED: MAG-AL HYDROX/SIMETH 30 ML UDC GT PRN (10:45)
[2019-04-17] MEDS ORDERED: MILK OF MAGNESIA 30 ML UDC PO PRN (10:45)
[2019-04-17] MEDS ORDERED: CLOPIDOGREL BISULFATE 75 MG TABLET PO ONE (10:45)
[2019-04-17] MEDS ORDERED: ACETAMINOPHEN 650 MG/20.3 ML UDC GT PRN (10:45)
[2019-04-17] MEDS ORDERED: FAMOTIDINE 20 MG TABLET GT ONE (10:45)
--- NOTE | 2019-04-17 12:10 | NUR ---
SEEN AND EXAMINED BY JONATHAN ESCOBAR.
--- NOTE | 2019-04-17 13:58 | NUR ---
ROUND Patient resting in the bed. No acute distress. HOB elevated. Skin warm and dry to touch. IV intact, IVF infusing well. F/C intact, drain gravity. Safety measure maintained. Bed locked in low position, side rails up, bed alarm on. Call light within reached. Continue to monitor.
--- NOTE | 2019-04-17 15:46 | NUR ---
ASHWINN HANG Patient resting in the bed. No acute distress. Respiration even and unlabored. HOB elevated. Skin warm and dry to touch. IV intact, IVF infusing well. F/C intact, drain gravity with yellow urine, no hematuria noted. Safety measure maintained. Call light within reached. Bed locked in low position, side rails up, bed alarm on. Continue to monitor.
--- NOTE | 2019-04-17 16:20 | NUR ---
Rapid Response Family at bedside, noticed patient is unresponsive. Rn came to assess and called Rapid response. Patient head is turned to the right with his eyes looking towards right side. temp of 103.7, BP 164/88, o2 sat 74%. O2 10 liters via face mask administered. cooling measures done. ABG drawn, stat lactic acid and blood culture ordered. accucheck done. IV bolus of 1 liter NS started. Called and SW Dr Butcher and updated of patient contion. Orders received.
--- NOTE | 2019-04-17 16:28 | NUR ---
Patient 1630 late entry due to patient care Patient noted to have seizure activity during rapid responce and left facial droop. Ativan [address] scan ordered. Neurology consult anfd order to transfer to ICU
[2019-04-17] MEDS ORDERED: LORazepam 2 MG/ML VIAL IVP ONE (16:30)
--- NOTE | 2019-04-17 16:40 | NUR ---
Ct Patient was taken to CT and transferred to ICU after. patient remained pyretic at 103F
[2019-04-17] MEDS ORDERED: LORazepam 2 MG/ML VIAL ONE (16:44)
--- NOTE | 2019-04-17 16:59 | NUR ---
Adjunct Mathematics Instructor Note GRE TUTOR attended rapid response. Stayed with family (, daughter, son), assisted with communication, and offered support.
--- NOTE | 2019-04-17 17:00 | NUR ---
Received PT from [facility] and placed in bed 5. PT was unresponsive and febrile with fever of 104.7. PT sinus tach with 132, hypertensive 165/88 O2 98. Placed ice packs, cooling blanket, and 650 mg of acetaminophen as ordered by . No report received from endorsing nurse.
--- NOTE | 2019-04-17 17:00 | NUR ---
RESPIRATORY THERAPY RESPONDED TO RAPID RESPONSE PLACED ON 10L SIMPLE MASK O2 SAT 97%
--- NOTE | 2019-04-17 17:08 | NUR ---
CONSULTATION PAGED/CALLED Reason for Consultation: [] CVA Person Who was Notified: [] JENN Consulting Physician: [] DR Taniya PERRY Trust Advisor Specialty: [] NEURO Ordering Physician: [] DR Gracie VALVERDE
--- NOTE | 2019-04-17 19:52 | NUR ---
STAT ABG DONE BY RT, PT UNRESPONSIVE WITH SHALLOW BREATHING. ON O2 10 L/MASK ON. WILL CALL .
--- NOTE | 2019-04-17 19:54 | NUR ---
Paged Dr. Butcher (Dr. Doran is clinical services professional) for orders for the patient. I spoke with Simin.
[2019-04-17] MEDS ORDERED: ALBUTEROL SULFATE 0.083% 2.5 MG/3 ML VIAL.NEB INH PRN (20:15)
--- NOTE | 2019-04-17 20:15 | NUR ---
CALLED BACK, INFORMED HIM WITH PTS STATUS AND THE STAT ABG RESULTS. ORDERS RECEIVED TO INTUBATE PT. WILL CARRY OUT ORDERS.
--- NOTE | 2019-04-17 20:20 | NUR ---
FROM ER HERE TO INTUBATE PT, ETOMIDATE 20 MG IVP GIVEN @2022, SUCCINYLCHOLINE 125 MG IVP GIVEN@2023 . INTUBATED 1ST ATTEMPT@2025 NOT SUCCESSFUL, 2ND ATTEMPT @2028 WITH 7.5 ETT SUCCESSFUL. CO2 DETECTOR COLOR CHANGED.ETT 26 CM LIP LINE. VSS HR 128, RR 25, POX 98%., BP 199/121. PLACED ON VENT .VENT SETTINGS AC16,VT500,FIO2 100%,PEEP5.
--- NOTE | 2019-04-17 20:29 | NUR ---
PT WAS INTUBATED WITH 7.5 ETT @ 26cm UPPER LIP LINE ON 2ND ATTEMPT BY ED . CO2 CAP. +, BILAT B/S NOTED.
[2019-04-17] MEDS ORDERED: PHENYTOIN SODIUM INJ 1,000 MG in NS 100 ML IV ONE (21:00)
[2019-04-17] MEDS ORDERED: levETIRAcetam 500 MG TABLET PO SCH (21:00)
[2019-04-17] MEDS ORDERED: PHENYTOIN 100 MG/4 ML UDC (DILANTIN) PO SCH (21:00)
[2019-04-17 21:18] LABS: BASOPHILS % (AUTO) 0.2 % (0.0-2.0); EOSINOPHILS % (AUTO) 0.1 % (0.0-4.0); LYMPHOCYTES # (AUTO) 1.1 K/uL (1.0-5.5); MONOCYTES # (AUTO) 1.3 K/uL (0.0-1.0)
[2019-04-17 21:27] LABS: CALCIUM 8.3 mg/dL (8.4-11.0); CREATININE 1.24 mg/dL (0.55-1.30); HEMOGLOBIN 11.4 g/dL (14.0-18.0); LYMPHOCYTES % (AUTO) 14.1 % (20.5-51.5); MEAN CORPUSCULAR HEMOGLOBIN 26 pg (27-31); MEAN CORPUSCULAR HGB CONC 32 % (32-36); MONOCYTES % (AUTO) 15.8 % (1.7-9.3); NEUTROPHILS # (AUTO) 5.6 K/uL (1.8-7.7); NEUTROPHILS % (AUTO) 69.8 % (40.0-70.0); PLATELET COUNT (AUTO) 267 K/uL (130-430); RED CELL DISTRIBUTION WIDTH 15.7 % (9.0-15.0)
[2019-04-17 21:29] LABS: MEAN CORPUSCULAR VOLUME 82 fL (79.0-98.0)
[2019-04-17] MEDS: POLYETHYLENE GLYCOL 3350, 17 GM/ POWD.PACK GT SCH (21:30)
--- NOTE | 2019-04-17 21:30 | NUR ---
CONSULT REASON FOR CONSULT: RESP DISTRESS PERSON I SPOKE WITH: OSWALD CONSULTING PHYSICIAN: DR. CARRASQUILLO (DR. QUICK BARGE CAPTAIN) MANAGER E [employer] PHONE NUMBER: [phone] ORDERING PHYSICIAN: DR. AG
[2019-04-17 21:33] LABS: ALBUMIN 1.8 g/dL (3.4-4.8); TOTAL BILIRUBIN 0.5 mg/dL (0.0-1.0)
--- NOTE | 2019-04-17 21:40 | NUR ---
NOTIFIED ABOUT LOW DILANTIN LEVEL, OKAYED TO GIVE DILANTIN 1 GM BOLUS.
--- NOTE | 2019-04-17 21:46 | NUR ---
PAGED DR. QUICK FOR ORDERS. SPOKE WITH JENN.
[2019-04-17] MEDS: LORazepam 2 MG/ML VIAL IVP PRN (21:47)
--- NOTE | 2019-04-17 22:05 | NUR ---
NEW IV STARTED New IV was started to right hand 22g by housekeeper, Tee Ornelas RN. Successful upon first attempt. Will monitor.
[2019-04-17] MEDS ORDERED: PHENYTOIN SODIUM 250 MG/5 ML INJ. VIAL IV ONE (22:10)
--- NOTE | 2019-04-17 22:30 | NUR ---
ASSUMPTION OF CARE Assumed care and SBAR report was received for patient from WALTER Grover. Addendum: 04/18/19 at 0654 by Marnie Nieto RN Family at bedside was educated with necessity of restraints due to patient trying to pull out medical lines. Family is agreeable and stated that they are aware of the risks and benefits of restraints due to the patient having them in the past when he used to have a tracheostomy.
--- NOTE | 2019-04-17 23:08 | NUR ---
ANUM AG WHO IS ON FOR DR. VALVERDE FOR THE PATIENT. I SPOKE WITH
--- NOTE | 2019-04-17 23:31 | NUR ---
2ND PAGE FOR DR. AG. I SPOKE WITH PARRIS.
[2019-04-18] VITALS (33 sets, daily range): BP systolic 108–166
--- NOTE | 2019-04-18 00:12 | NUR ---
3RD PAGED FOR DR. AG FOR PATIENT. SPOKE WITH WITH CINTHYA.
--- NOTE | 2019-04-18 00:22 | NUR ---
SPOKE WITH DR. AG; NEW ORDERS RECEIVED Reported patient's stat lab results to Dr. Ag. New orders for accucheck every 6 hours and regular insulin sliding scale order; acetaminophen frequency changed to every 4 hours. Okay to give meds via gtube. Will carry out.
[2019-04-18] MEDS ORDERED: COMMUNICATION ORDER XX ONE (00:30)
[2019-04-18] MEDS: INSULIN REGULAR, HUMAN 100 UNITS/ML, 10 ML VIAL (humuLIN R) SUBCUT PRN ×3 (00:59→13:13)
--- NOTE | 2019-04-18 00:59 | NUR ---
ACCUCHECK: 289; COVERED WITH 6 UNITS OF REGULAR INSULIN Bedside glucose is 289; patient was given 6 units of regular insulin per sliding scale order. See EMAR for details.
[2019-04-18] MEDS: ACETAMINOPHEN 650 MG/20.3 ML UDC GT PRN ×5 (01:02→21:05)
--- NOTE | 2019-04-18 01:02 | NUR ---
TYLENOL GIVEN FOR ELEVATED BP Tylenol was given via gtube for patient's temperature of 102.3 F. See EMAR for details. Cooling blanket in place. Will recheck. Addendum: 04/18/19 at 0252 by Marnie Nieto RN TYLENOL GIVEN FOR ELEVATED TEMPERATURE Tylenol was given via gtube for patient's temperature of 102.3 F. See EMAR for details. Cooling blanket in place. Will recheck.
[2019-04-18] MEDS: PIPERACILLIN/TAZO 3.375 GM in NS 50 ML IV SCH ×4 (02:34→21:07)
--- NOTE | 2019-04-18 02:42 | NUR ---
COOLING PACKS APPLIED Noninvasive cooling packs applied to keep patient's body temperature within normal limits. Will monitor.
[2019-04-18] MEDS: NACL 0.9% 1,000 ML IV SCH ×2 (05:36→15:12)
[2019-04-18] MEDS ORDERED: MILK OF MAGNESIA 30 ML UDC GT PRN (06:23)
[2019-04-18] MEDS ORDERED: DEXTROSE 50%-WATER 50 ML DISP.SYRIN IVP PRN (06:30)
[2019-04-18] MEDS ORDERED: D5W 1,000 ML IV PRN (06:30)
[2019-04-18] MEDS ORDERED: GLUCOSE 15 GM GEL (in 37.5 GM TUBE) PO PRN (06:30)
[2019-04-18 06:47] LABS: CREATININE 1.51 mg/dL (0.55-1.30); POTASSIUM 3.8 mmol/L (3.5-5.1)
--- NOTE | 2019-04-18 06:51 | NUR ---
TYLENOL GIVEN FOR FEVER Patient was given tylenol via gtube for temperature of 103.0 F. Will endorse to day shift nurse to recheck on EMAR.
[2019-04-18 07:10] LABS: CALCIUM 7.9 mg/dL (8.4-10.2)
--- NOTE | 2019-04-18 07:20 | NUR ---
Received patient from [facility] shift nurse. Patient in no acute distress, side rails x 3 up, call light with in reach.
--- NOTE | 2019-04-18 07:20 | NUR ---
Received patient from NOC shift. Patient in bed in no acute distress side rails x 3 up call light with in reach.
--- NOTE | 2019-04-18 07:31 | NUR ---
ENDORSED CARE TO DAY SHIFT NURSE SBAR REPORT GIVEN TO WALTER NG. ENDORSED FOR HER TO RECHECK TYLENOL EFFECTIVENESS FOR FEVER.
--- NOTE | 2019-04-18 09:15 | NUR ---
Spoke with Dr. Byrnes on the phone. Questions answered and orders left. Informed Dr. Byrnes that pt is non compliant with her diet here in the hospital and gets upset if she doesn't her requests. Pt is familiar with a diabetic diet and I reminded her that her choices are not the best ones for controlling her diabetes. Addendum: 04/18/19 at 0940 by Stella Pina RN Documentation on wrong patient.
[2019-04-18] MEDS: POLYETHYLENE GLYCOL 3350, 17 GM/ POWD.PACK GT SCH ×2 (09:57→21:05)
[2019-04-18] MEDS: ATORVASTATIN 10 MG TABLET GT SCH (09:58)
[2019-04-18] MEDS: LORATADINE 10 MG TABLET GT SCH (09:58)
[2019-04-18] MEDS: CLOPIDOGREL BISULFATE 75 MG TABLET GT SCH (09:58)
[2019-04-18] MEDS: FAMOTIDINE 20 MG TABLET GT SCH (09:58)
[2019-04-18] MEDS: BACLOFEN 10 MG TABLET GT SCH (09:58)
[2019-04-18] MEDS: levETIRAcetam 500 MG TABLET GT SCH ×2 (09:58→21:06)
[2019-04-18] MEDS: amLODIPine BESYLATE 5 MG TABLET GT SCH (09:59)
[2019-04-18] MEDS: PHENYTOIN 100 MG/4 ML UDC (DILANTIN) GT SCH ×2 (09:59→21:06)
[2019-04-18] MEDS ORDERED: SUCCINYLCHOLINE CHLORIDE 20 MG/ML(QUELICIN) IVP ONE (11:00)
[2019-04-18] MEDS ORDERED: ETOMIDATE 20 MG/ 10 ML VIAL (AMIDATE) IVP ONE (11:00)
[2019-04-18] MEDS: LORazepam 2 MG/ML VIAL IVP PRN (13:06)
[2019-04-18] MEDS: VANCOMYCIN HCL 1,500 MG in NS 250 ML IV SCH ×2 (13:11→23:05)
[2019-04-18] MEDS: IPRATROPIUM BROM 0.5 MG/2.5 ML VIAL.NEB (ATROVENT) INH SCH ×2 (14:02→19:35)
[2019-04-18] MEDS: LevALBUTEROL HCL 1.25 MG/0.5 ML *CONC.* VIAL.NEB (XOPENEX CONC.) INH SCH ×2 (14:02→19:35)
--- NOTE | 2019-04-18 19:20 | NUR ---
Endorsed patient to NOC shift nurse and gave report. Patient in bed in no acute distress side rails x 3 up call light with in reach.
--- NOTE | 2019-04-18 20:00 | NUR ---
OPENS EYES SPON. ORALLY INTUBATED. SUCTIONED WITH SCANT AMOUNT OF THIN WHITE MUCUS OBTAINED. ORAL CARE GIVEN. GT CLAMPED. COOLING BLANKET IN PLACE. TEMP 102.1 OH. CALI SOFT WRIST RESTRAINTS IN PLACE. GRIMALDO CATH PATENT DRAINING CLOUDY EVELIN URINE TO GRAVITY. CALI SCD'S IN PLACE. NETTA MIDLINE DRSG D/I. SIDE RAILS PADDED. SINUS TACH.
--- NOTE | 2019-04-18 21:00 | NUR ---
TYLENOL GR 10 GT GIVEN FOR TEMP 102.7. COOLING BLANKET IN PLACE.
--- NOTE | 2019-04-18 22:00 | NUR ---
SUCTIONED. TURNED. HS CARE.
[2019-04-19] VITALS (32 sets, daily range): BP systolic 91–173
--- NOTE | 2019-04-19 | NUR ---
ACCU-CHEK 129, NO INSULIN DUE PER SLIDING SCALE COV. SUCTIONED WITH SAME RESULTS. ORAL CARE RENDERED. TURNED.
[2019-04-19 00:55] LABS: ALBUMIN 1.6 g/dL (3.4-4.8); CALCIUM 7.7 mg/dL (8.4-11.0); CREATININE 1.68 mg/dL (0.55-1.30); PHENYTOIN (DILANTIN) 8.5 ug/mL (10.0-20.0); TOTAL BILIRUBIN 0.5 mg/dL (0.0-1.0)
[2019-04-19] MEDS: LevALBUTEROL HCL 1.25 MG/0.5 ML *CONC.* VIAL.NEB (XOPENEX CONC.) INH SCH ×4 (01:15→19:48)
[2019-04-19] MEDS: IPRATROPIUM BROM 0.5 MG/2.5 ML VIAL.NEB (ATROVENT) INH SCH ×4 (01:15→19:48)
[2019-04-19] MEDS: INSULIN REGULAR, HUMAN 100 UNITS/ML, 10 ML VIAL (humuLIN R) SUBCUT PRN ×4 (01:30→23:45)
--- NOTE | 2019-04-19 02:00 | NUR ---
TYLENOL GR 10 GT GIVEN FOR HR 124, BP 173/96 AND TEMP 103.[address] PL[address]. SUCTIONED. REPOSITIONED.
[2019-04-19 02:28] LABS: POTASSIUM 2.9 mmol/L (3.5-5.1)
[2019-04-19] MEDS: NACL 0.9% 1,000 ML IV SCH ×3 (02:34→18:00)
[2019-04-19] MEDS: ACETAMINOPHEN 650 MG/20.3 ML UDC GT PRN ×5 (02:34→23:47)
[2019-04-19] MEDS: PIPERACILLIN/TAZO 3.375 GM in NS 50 ML IV SCH ×4 (02:38→21:17)
--- NOTE | 2019-04-19 02:54 | NUR ---
PAGED DR. VALVERDE (DR. AG LEASING SALES CONSULTANT) REGARDING LABS. SPOKE WITH
--- NOTE | 2019-04-19 03:25 | NUR ---
2ND PAGE FOR DR. VALVERDE (DR. AG WOOD ROOM HAND) REGARDING LABS. SPOKE WITH LITO.
[2019-04-19] MEDS: MORPHINE 2 MG/ML INJ. SYRINGE IVP PRN (03:36)
--- NOTE | 2019-04-19 04:00 | NUR ---
1 LARGE LIQUID BROWN STOOL DEFECATED. CLEANED. ORAL CARE, KIN-CARE, BACK CARE, SKIN CARE DONE. COMPLETE LINEN CHANGE. DOES NOT ASSIST WITH TURNING. JV PROC WELL.
--- NOTE | 2019-04-19 04:20 | NUR ---
JEFFERSON RETURNED CALL, NOTIFIED OF CRITICAL LAB VALUES. ORDERS RECEIVED AND CARRIED OUT.
[2019-04-19] MEDS ORDERED: KCL 20 mEq in 100 mL (PREMIX) 200 ML IV ONE (04:49)
[2019-04-19] MEDS ORDERED: POTASSIUM CHLORIDE 40 MEQ in D5W 250 ML IV ONE ×2 (05:00→09:45)
--- NOTE | 2019-04-19 06:00 | NUR ---
SLEPT INTERMITTENTLY. ACCU-CHEK 138, NO INSULIN DUE PER SLIDING SCALE COV. UO GOOD. TEMP 101.4 RECTALLY. TURNED AND SUCTIONED Q2 HRS AND PRN. REMAINS IN GUARDED CONDITION.
[2019-04-19 06:26] LABS: BASOPHILS % (AUTO) 0.5 % (0.0-2.0); EOSINOPHILS % (AUTO) 1.2 % (0.0-4.0); HEMATOCRIT 32.8 % (36-54); HEMOGLOBIN 10.5 g/dL (14.0-18.0); LYMPHOCYTES # (AUTO) 0.2 K/uL (1.0-5.5); LYMPHOCYTES % (AUTO) 6.9 % (20.5-51.5); MEAN CORPUSCULAR HEMOGLOBIN 26 pg (27-31); MEAN CORPUSCULAR HGB CONC 32 % (32-36); MEAN CORPUSCULAR VOLUME 80 fL (79.0-98.0); MONOCYTES # (AUTO) 0.2 K/uL (0.0-1.0); MONOCYTES % (AUTO) 6.6 % (1.7-9.3); NEUTROPHILS # (AUTO) 2.6 K/uL (1.8-7.7); NEUTROPHILS % (AUTO) 84.8 % (40.0-70.0); PLATELET COUNT (AUTO) 182 K/uL (130-430)
--- NOTE | 2019-04-19 07:20 | NUR ---
Received patient from NOC shift. Patient in bed in no acute distress side rails x 3 up call light with in reach.
[2019-04-19] MEDS: LORazepam 2 MG/ML VIAL IVP PRN (07:46)
[2019-04-19] MEDS: PHENYTOIN 100 MG/4 ML UDC (DILANTIN) GT SCH (08:16)
[2019-04-19] MEDS: LORATADINE 10 MG TABLET GT SCH (08:17)
[2019-04-19] MEDS: ATORVASTATIN 10 MG TABLET GT SCH (08:17)
[2019-04-19] MEDS: CLOPIDOGREL BISULFATE 75 MG TABLET GT SCH (08:18)
[2019-04-19] MEDS: levETIRAcetam 500 MG TABLET GT SCH ×2 (08:18→21:18)
[2019-04-19] MEDS: amLODIPine BESYLATE 5 MG TABLET GT SCH (08:18)
[2019-04-19] MEDS: FAMOTIDINE 20 MG TABLET GT SCH (08:19)
[2019-04-19] MEDS: BACLOFEN 10 MG TABLET GT SCH (08:19)
[2019-04-19] MEDS: POLYETHYLENE GLYCOL 3350, 17 GM/ POWD.PACK GT SCH ×2 (08:20→21:18)
[2019-04-19 08:54] LABS: ALBUMIN 1.6 g/dL (3.4-4.8); CALCIUM 8.1 mg/dL (8.4-11.0); CREATININE 1.75 mg/dL (0.55-1.30); TOTAL BILIRUBIN 0.6 mg/dL (0.0-1.0)
[2019-04-19 09:02] LABS: POTASSIUM 2.8 mmol/L (3.5-5.1)
[2019-04-19] MEDS ORDERED: DEXTROSE 50% JECT 50 ML DISP.SYRIN IVP PRN (09:45)
[2019-04-19] MEDS ORDERED: *TPN PER PHARMACY XX SCH (09:45)
--- NOTE | 2019-04-19 10:48 | NUR ---
Radiology Pt taken off unit to CT with RN, RT and opto mechanical technician. Pt connected to transport monitor.
[2019-04-19] MEDS: VANCOMYCIN HCL 1,500 MG in NS 250 ML IV SCH (11:00)
[2019-04-19 11:04] LABS: PHOSPHORUS 3.6 mg/dL (2.7-4.5)
--- NOTE | 2019-04-19 11:05 | NUR ---
Radiology Pt returned to unit from CT
--- NOTE | 2019-04-19 11:50 | NUR ---
[place] diamond for Consult, spoke to Cher
--- NOTE | 2019-04-19 11:55 | NUR ---
0900 vancomycin not administered as ordered by pharmacy due to trough 36.8.
--- NOTE | 2019-04-19 12:02 | NUR ---
Call Back Dr. Hester called back, aware of new consultation
--- NOTE | 2019-04-19 12:20 | NUR ---
Paged Dr. Espinoza diamond, spoke to Ibis.
--- NOTE | 2019-04-19 15:22 | NUR ---
Dietitian Recommendations * Recommend PPN D20%, AA8% at 85 ml/hr (goal rate) via peripheral line (initial concentration)/PPN D10%, AA4% at 85 ml/hr (goal rate) via peripheral line (final concentration) Provides: 673 kcal/day, 82 gm protein/day, 2040 ml total volume/day, and GIR: 1.2 gm CHO/kg/min Meets: 27% of lower end of estimated caloric intakes and 96% of lower end of estimated protein needs LP, RD Please refer to Nutrition Assessment for details. Addendum: 04/22/19 at [address] CORRECTION: * Recommend PPN D20%, AA8% at 85 ml/hr (goal rate) via peripheral line (initial concentration)/PPN D10%, AA4% at 85 ml/hr (goal rate) via peripheral line (final concentration) Provides: 1020 kcal/day, 82 gm protein/day, 2040 ml total volume/day, and GIR: 1.7 gm CHO/kg/min Meets: 42% of lower end of estimated caloric intakes and 96% of lower end of estimated protein needs LP, RD
[2019-04-19] MEDS: [UNRECOGNIZED DRUG - OTHER] IV SCH ×8 (18:08)
[2019-04-19] MEDS: SODIUM ACETATE IV SCH ×8 (18:08)
[2019-04-19] MEDS: POTASSIUM ACETATE IV SCH ×8 (18:08)
--- NOTE | 2019-04-19 19:20 | NUR ---
Endorsed patient and report to NOC shift. Patient in bed in no acute distress side rails x 3 up. Call light with in reach.
--- NOTE | 2019-04-19 20:00 | NUR ---
OPENS EYES SPON. ABLE TO TRACK. DOES NOT FOLLOW COMMANDS. SLIGHT MOVEMENT OF HEAD FOR YES AND NO QUESTIONS. BREATH SOUNDS WITH RHONCHI. ORALLY INTUBATED. SUCTIONED WITH SCANT AMOUNT OF THIN WHITE MUCUS OBTAINED. ORAL CARE GIVEN. GT TO LOW INTERMITTENT SUCTION, CLAMPED AFTER MEDICATION. CALI SCD'S IN PLACE. RECTAL TUBE NOTED WITH LIQUID BROWN STOOL DRAINING . GRIMALDO CATH PATENT DRAINING CLOUDY EVELIN URINE TO GRAVITY. NETTA MIDLINE DRSG D/I. ON TPN/PPN AT 40CC/HR. HOB UP TO COMFORT. SIDE RAILS UPX3 AND PADDED. SINUS TACH. SON AT BEDSIDE VISITING. SOME EDUCATION GIVEN. QUESTIONS ANSWERED
--- NOTE | 2019-04-19 22:00 | NUR ---
SON LEFT FOR HOME EARLIER. SUCTIONED . TURNED. CARE. TEMP 101.5.
[2019-04-20] VITALS (34 sets, daily range): BP systolic 97–160
--- NOTE | 2019-04-20 | NUR ---
AWAKE. SUCTIONED AGAIN WITH SAME RESULTS. ORAL CARE RENDERED. ACCU-CHEK 174, 2 UNITS REGULAR INSULIN SQ GIVEN PER SLIDING SCALE COVERAGE. TYLENOL 650 MG VIA GT GIVEN FOR TEMP 102.2 VT. TURNED.
[2019-04-20] MEDS: LevALBUTEROL HCL 1.25 MG/0.5 ML *CONC.* VIAL.NEB (XOPENEX CONC.) INH SCH ×4 (00:44→19:15)
[2019-04-20] MEDS: IPRATROPIUM BROM 0.5 MG/2.5 ML VIAL.NEB (ATROVENT) INH SCH ×4 (00:44→19:14)
--- NOTE | 2019-04-20 02:00 | NUR ---
SOUNDLY ASLEEP. TEMP 101.6 VT. SUCTIONED. TURNED.
[2019-04-20] MEDS: PIPERACILLIN/TAZO 3.375 GM in NS 50 ML IV SCH ×2 (02:53→09:57)
--- NOTE | 2019-04-20 04:00 | NUR ---
SLEPT INTERMITTENTLY. RESISTIVE TO ORAL CARE. SUCTIONED AND TURNED. TEMP 101.4 MS.
--- NOTE | 2019-04-20 05:00 | NUR ---
ORAL CARE GIVEN. CHG BATH DONE. GRIMALDO CARE, BACK CARE, SKIN CARE, GT INSERTION SITE CARE, AND KIN CARE RENDERED.PARTIAL LINEN CHANGE. DOES NO ASSIST WITH TURNING. JV PROC WELL.
[2019-04-20] MEDS: ACETAMINOPHEN 650 MG/20.3 ML UDC GT PRN ×3 (05:54→22:33)
[2019-04-20] MEDS: INSULIN REGULAR, HUMAN 100 UNITS/ML, 10 ML VIAL (humuLIN R) SUBCUT PRN ×2 (05:56→12:19)
--- NOTE | 2019-04-20 06:00 | NUR ---
ACCU-CHEK 232, 4 UNITS REGULAR INSULIN SQ GIVEN PER SLIDING SCALE COV. NGT 100CC OUT, UO 550CC OUT, RECTAL TUBE 150CC OUT. TYLENOL GR 10 GT GIVEN FOR TEMP 103.3 RI. REMAINS IN GUARDED CONDITION.
[2019-04-20 06:57] LABS: HEMATOCRIT 31.1 % (36-54); HEMOGLOBIN 10.1 g/dL (14.0-18.0); MEAN CORPUSCULAR HEMOGLOBIN 26 pg (27-31); MEAN CORPUSCULAR HGB CONC 32 % (32-36); MEAN CORPUSCULAR VOLUME 79 fL (79.0-98.0); PLATELET COUNT (AUTO) 171 K/uL (130-430); RED BLOOD CELL COUNT(AUTO) 3.92 MIL/uL (4.2-6.2); RED CELL DISTRIBUTION WIDTH 16.1 % (9.0-15.0)
--- NOTE | 2019-04-20 07:20 | NUR ---
RN OPENING NOTE RECEIVED SBAR REPORT FROM ENDORSING RN AT BEDSIDE. SEE VS FLOW SHEET
[2019-04-20 07:32] LABS: WHITE BLOOD COUNT (AUTO) 2.6 K/uL (4.8-10.8)
[2019-04-20 07:35] LABS: ALBUMIN 1.4 g/dL (3.4-4.8); BILIRUBIN,DIRECT 0.4 mg/dL (0.0-0.3); CREATININE 1.8 mg/dL (0.55-1.30); POTASSIUM 3.4 mmol/L (3.5-5.1); TOTAL BILIRUBIN 0.5 mg/dL (0.0-1.0)
--- NOTE | 2019-04-20 08:03 | NUR ---
RT NOTES- 30%FIO2 DECREASED FIO2 TO 30%. KEEPING SPO2 ABOVE 90%. PINKING MACHINE OPERATOR KARISHMA NOTED. WILL CONTINUE MONITORING.
--- NOTE | 2019-04-20 08:58 | NUR ---
DR. CONTI AT BEDSIDE NEW ORDERS RECEIVED.
--- NOTE | 2019-04-20 09:00 | NUR ---
DR. VALVERDE AT BEDSIDE.
--- NOTE | 2019-04-20 09:15 | NUR ---
TEMP 101.1 COOLING BLANKED INITIATED
[2019-04-20] MEDS: ATORVASTATIN 10 MG TABLET GT SCH (09:53)
[2019-04-20] MEDS: NACL 0.9% 1,000 ML IV SCH (09:53)
[2019-04-20] MEDS: LORATADINE 10 MG TABLET GT SCH (09:53)
[2019-04-20] MEDS: levETIRAcetam 500 MG TABLET GT SCH ×2 (09:53→20:13)
[2019-04-20] MEDS: POLYETHYLENE GLYCOL 3350, 17 GM/ POWD.PACK GT SCH ×2 (09:54→20:13)
[2019-04-20] MEDS: amLODIPine BESYLATE 5 MG TABLET GT SCH (09:54)
[2019-04-20] MEDS: BACLOFEN 10 MG TABLET GT SCH (09:54)
[2019-04-20] MEDS: FAMOTIDINE 20 MG TABLET GT SCH (09:57)
[2019-04-20] MEDS: CLOPIDOGREL BISULFATE 75 MG TABLET GT SCH (09:57)
--- NOTE | 2019-04-20 10:10 | NUR ---
DR. CARRASQUILLO AT BEDSIDE NEW ORDERS RECEIVED, TELEPHONE AUTHORIZATION RECEIVED BY DAUGHTER OVER TELEPHONE
[2019-04-20 11:38] LABS: ATYPICAL LYMPHOCYTES % 0 % (0-0); BAND % (MANUAL) 32 % (0-6); BASOPHILS % (MANUAL) 0 % (0-2); EOSINOPHILS % (MANUAL) 7 % (0-7); LYMPHOCYTES % (MANUAL) 12 % (20-46); MONOCYTES % (MANUAL) 8 % (0-11)
--- NOTE | 2019-04-20 13:10 | NUR ---
THOROCENTESIS RESCHEDULED US DETERMINED INSUFFICIENT PLURAL FLUID. MD STATED THEY WILL RESCAN ON SATURDAY (04/22/19)
[2019-04-20] MEDS: FLUCONAZOLE 200 mg/ NS 100 ML IV SCH (13:58)
--- NOTE | 2019-04-20 14:15 | NUR ---
RT NOTES- SIMV PT ALERT. EXPLAINED TO PT THAT DR. CARRASQUILLO ORDERED WEANING PARAMETER. PT NODDED. PLACED PT ON SIMV 10, PS10, PEEP5, 30%FIO2. TOLERATING WELL AT THIS TIME. WALTER SAPP MADE AWARE. WILL CONTINUE MONITORING.
[2019-04-20] MEDS: [UNRECOGNIZED DRUG - OTHER] IV SCH ×8 (18:08)
[2019-04-20] MEDS: POTASSIUM ACETATE IV SCH ×8 (18:08)
[2019-04-20] MEDS: SODIUM ACETATE IV SCH ×8 (18:08)
--- NOTE | 2019-04-20 19:10 | NUR ---
FAMILY AT BEDSIDE, PLAN OF CARE EDUCATION PROVIDED.
--- NOTE | 2019-04-20 19:20 | NUR ---
PM ASSESSMENT Pt in bed w/ eyes closed resting comfortably, no signs of acute distress or discomfort noted. Family at bedside. Pt able to track. VSS w/ SR seen on the monitor. Pt intubated, sz 7.5, lip line at 26 cm. Vent settings: SIMV 10, TV 500, FIO2 30%, PEEP of 5 and PS 10. Pt tolerating settings well w/ O2 sats @ 99% and even and unlabored breathing. Pt has a NETTA midline infusing NS @ 60 cc/hr and TPN @ 40 cc/hr. Dressing c/d/i. Pt also has a R hand and L hand 22g SL. Dressing c/d/i. Gtube noted connected to low int suction. Mary cath noted draining urine to gravity. Rectal tube noted, loose stool noted in bag. Pt has a rectal temp monitor and cooling blanket. SCD's noted to pt's bilateral lower legs. Bed is locked and in lowest position, call light w/in reach, will continue to monitor.
--- NOTE | 2019-04-20 19:25 | NUR ---
ENDORSEMENT SBAR REPORT ENDORSED TO RECEIVING RN AT BEDSIDE
[2019-04-20] MEDS: CEFEPIME 1 GM in D5W 50 ML IV SCH (20:14)
[2019-04-20] MEDS: metroNIDAZOLE 500 mg/NS 100 ML IV SCH (21:12)
--- NOTE | 2019-04-20 22:00 | NUR ---
Pt in bed w/ eyes closed resting comfortably, no signs of acute distress or discomfort noted. Will continue to monitor pt.
[2019-04-21] VITALS (33 sets, daily range): BP systolic 126–164
--- NOTE | 2019-04-21 | NUR ---
Pt in bed w/ eyes closed resting comfortably. No signs of acute distress or discomfort noted. Pt repositioned at this time. Pt's temp trending down, 101.5 at this time. Cooling measures still in place. Will continue to monitor pt.
[2019-04-21] MEDS: INSULIN REGULAR, HUMAN 100 UNITS/ML, 10 ML VIAL (humuLIN R) SUBCUT PRN ×5 (00:18→23:22)
[2019-04-21] MEDS: LevALBUTEROL HCL 1.25 MG/0.5 ML *CONC.* VIAL.NEB (XOPENEX CONC.) INH SCH ×4 (00:42→19:38)
[2019-04-21] MEDS: IPRATROPIUM BROM 0.5 MG/2.5 ML VIAL.NEB (ATROVENT) INH SCH ×4 (00:42→19:37)
[2019-04-21] MEDS: NACL 0.9% 1,000 ML IV SCH ×2 (03:29→20:06)
--- NOTE | 2019-04-21 04:10 | NUR ---
CHG CHG bath given to pt at this time. Pt tolerated well, will continue to monitor.
--- NOTE | 2019-04-21 05:30 | NUR ---
Tap water enema administered per MD order. Gave 1500 cc at first. After 30 minutes gave another 1500 cc. Pt tolerated well. Light yellowish brown liquid output noted. No solid stools noted. Will continue to monitor pt.
[2019-04-21 05:55] LABS: BASOPHILS % (AUTO) 0.2 % (0.0-2.0); EOSINOPHILS # (AUTO) 0.3 K/uL (0.0-0.4); EOSINOPHILS % (AUTO) 9.5 % (0.0-4.0); HEMATOCRIT 29.8 % (36-54); HEMOGLOBIN 9.6 g/dL (14.0-18.0); LYMPHOCYTES # (AUTO) 0.4 K/uL (1.0-5.5); LYMPHOCYTES % (AUTO) 11.9 % (20.5-51.5); MEAN CORPUSCULAR HEMOGLOBIN 25 pg (27-31); MEAN CORPUSCULAR HGB CONC 32 % (32-36); MEAN CORPUSCULAR VOLUME 79 fL (79.0-98.0); MONOCYTES # (AUTO) 0.2 K/uL (0.0-1.0); MONOCYTES % (AUTO) 6.1 % (1.7-9.3); NEUTROPHILS # (AUTO) 2.4 K/uL (1.8-7.7); NEUTROPHILS % (AUTO) 72.3 % (40.0-70.0); PLATELET COUNT (AUTO) 151 K/uL (130-430); RED BLOOD CELL COUNT(AUTO) 3.78 MIL/uL (4.2-6.2); RED CELL DISTRIBUTION WIDTH 16.5 % (9.0-15.0); WHITE BLOOD COUNT (AUTO) 3.4 K/uL (4.8-10.8)
[2019-04-21 06:09] LABS: ALBUMIN 1.5 g/dL (3.4-4.8); CALCIUM 7.8 mg/dL (8.4-11.0); CREATININE 1.68 mg/dL (0.55-1.30); PHOSPHORUS 1.9 mg/dL (2.7-4.5); POTASSIUM 3.2 mmol/L (3.5-5.1); TOTAL BILIRUBIN 0.6 mg/dL (0.0-1.0)
--- NOTE | 2019-04-21 07:25 | NUR ---
ENDORSEMENT Report given to WALTER Douglas using SBAR format and pt care was endorsed. Pt in bed w/ eyes closed resting comfortably. No signs of acute distress or discomfort noted.
--- NOTE | 2019-04-21 08:49 | NUR ---
Spoke with Dr. Jimenes regarding no results from enemas. No order left. He plans to wait for the pt to be extubated.
[2019-04-21] MEDS: LORATADINE 10 MG TABLET GT SCH (08:50)
[2019-04-21] MEDS: FAMOTIDINE 20 MG TABLET GT SCH (08:51)
[2019-04-21] MEDS: BACLOFEN 10 MG TABLET GT SCH (08:51)
[2019-04-21] MEDS: ATORVASTATIN 10 MG TABLET GT SCH (08:51)
[2019-04-21] MEDS: CLOPIDOGREL BISULFATE 75 MG TABLET GT SCH (08:51)
[2019-04-21] MEDS: POLYETHYLENE GLYCOL 3350, 17 GM/ POWD.PACK GT SCH ×2 (08:51→20:06)
[2019-04-21] MEDS: levETIRAcetam 500 MG TABLET GT SCH ×2 (08:51→20:06)
[2019-04-21] MEDS: amLODIPine BESYLATE 5 MG TABLET GT SCH (08:51)
[2019-04-21] MEDS: metroNIDAZOLE 500 mg/NS 100 ML IV SCH ×2 (08:53→20:41)
[2019-04-21] MEDS: CEFEPIME 1 GM in D5W 50 ML IV SCH ×2 (08:53→20:06)
--- NOTE | 2019-04-21 08:55 | NUR ---
Received message that Dr. Jimenes called and left orders for a rectal tube and OGT. Pt already has a GT. Call out to Dr. Jimenes
--- NOTE | 2019-04-21 09:13 | NUR ---
Spoke with Dr. Jimenes again and he said to leave the OGT out and just leave GT to LIS and insert rectal tube to air to help decompress the abd.
[2019-04-21] MEDS ORDERED: POTASSIUM CHLORIDE 40 MEQ in NS 250 ML IV ONE (10:45)
--- NOTE | 2019-04-21 11:40 | NUR ---
RT NOTES - SIMV [address] CARRASQUILLO PLACED PT ON SIMV 6, 500, PS10, +5, 30%FIO2. PT TOLERATING WELL. WALTER NGUYEN MADE AWARE. WILL CONTINUE MONITORING.
[2019-04-21] MEDS: FLUCONAZOLE 200 mg/ NS 100 ML IV SCH (12:24)
--- NOTE | 2019-04-21 13:45 | NUR ---
Rectal tube inserted (red mcwilliams #[id number]) pt passing small amounts of gas. Abd remains distended with hypoactive bowel sounds. GT to LIS with no drainage. Remains SR on monitor.
--- NOTE | 2019-04-21 14:00 | NUR ---
Pt's son in to visit. No questions asked. Pts sister called from [place].
[2019-04-21 14:09] LABS: HEPATITIS A AB, IgM Negative (Negative); HEPATITIS B CORE AB, IgM Negative (Negative); HEPATITIS B SURFACE AG Negative (Negative)
[2019-04-21] MEDS ORDERED: [UNRECOGNIZED DRUG - OTHER] IV SCH ×9 (18:00)
[2019-04-21] MEDS ORDERED: SODIUM ACETATE IV SCH ×9 (18:00)
[2019-04-21] MEDS ORDERED: POTASSIUM ACETATE IV SCH ×9 (18:00)
--- NOTE | 2019-04-21 19:25 | NUR ---
PM ASSESSMENT Pt in bed w/ eyes closed resting comfortably, no signs of acute distress or discomfort noted. Family at bedside. Pt able to track. VSS w/ SR seen on the monitor. Pt intubated, sz 7.5, lip line at 26 cm. Vent settings: SIMV 6, TV 500, FIO2 30%, PEEP of 5 and PS 10. Pt tolerating settings well w/ O2 sats @ 99% and even and unlabored breathing. Pt has a NETTA midline infusing NS @ 60 cc/hr and TPN @ 50 cc/hr. Dressing c/d/i. Pt also has a R hand and L hand 22g SL. Dressing c/d/i. Gtube noted connected to low int suction. Mary cath noted draining urine to gravity. Rectal tube noted, loose stool noted in bag. Pt has a rectal temp monitor and cooling blanket. SCD's noted to pt's bilateral lower legs. Bed is locked and in lowest position, call light w/in reach, will continue to monitor. Addendum: 04/23/19 at 2052 by Jaxon Carbajal RN Rectal tube is a red mcwilliams to decompress colon not a flexiseal w/ a bag.
--- NOTE | 2019-04-21 19:30 | NUR ---
Report given to oncoming RN.
[2019-04-21] MEDS: LINEZOLID 300 ML IV SCH (20:42)
--- NOTE | 2019-04-21 22:00 | NUR ---
Pt in bed w/ eyes closed resting comfortably. No signs of acute distress or discomfort noted. Will continue to monitor pt.
[2019-04-21] MEDS: ACETAMINOPHEN 650 MG/20.3 ML UDC GT PRN (23:20)
--- NOTE | 2019-04-21 23:20 | NUR ---
Pt's fever at 101.9 at this time per rectal temp. Tylenol administered per MD order. Cooling measures still in place w/ cooling blanket. Will continue to monitor.
[2019-04-22] VITALS (34 sets, daily range): BP systolic 110–167
--- NOTE | 2019-04-22 00:30 | NUR ---
CHG CHG bath given to pt at this time. Pt tolerated well, will continue to monitor.
[2019-04-22] MEDS: IPRATROPIUM BROM 0.5 MG/2.5 ML VIAL.NEB (ATROVENT) INH SCH ×4 (00:59→19:06)
[2019-04-22] MEDS: LevALBUTEROL HCL 1.25 MG/0.5 ML *CONC.* VIAL.NEB (XOPENEX CONC.) INH SCH ×4 (00:59→19:07)
--- NOTE | 2019-04-22 04:00 | NUR ---
Pt in bed w/ eyes closed resting comfortably. No signs of acute distress or discomfort noted. Pt repositioned at this time, tolerated well. Pt's rectal temp trending down at this time, 99.5, Cooling measure still in place. Will continue to monitor pt.
[2019-04-22] MEDS: INSULIN REGULAR, HUMAN 100 UNITS/ML, 10 ML VIAL (humuLIN R) SUBCUT PRN ×4 (05:26→23:23)
[2019-04-22 05:38] LABS: BASOPHILS % (AUTO) 0.5 % (0.0-2.0); EOSINOPHILS # (AUTO) 0.3 K/uL (0.0-0.4); EOSINOPHILS % (AUTO) 10.1 % (0.0-4.0); HEMATOCRIT 28.3 % (36-54); LYMPHOCYTES # (AUTO) 0.4 K/uL (1.0-5.5); LYMPHOCYTES % (AUTO) 11.7 % (20.5-51.5); MEAN CORPUSCULAR HEMOGLOBIN 25 pg (27-31); MEAN CORPUSCULAR HGB CONC 32 % (32-36); MEAN CORPUSCULAR VOLUME 79 fL (79.0-98.0); MONOCYTES # (AUTO) 0.2 K/uL (0.0-1.0); MONOCYTES % (AUTO) 5.7 % (1.7-9.3); NEUTROPHILS # (AUTO) 2.2 K/uL (1.8-7.7); PLATELET COUNT (AUTO) 110 K/uL (130-430); RED CELL DISTRIBUTION WIDTH 16.3 % (9.0-15.0); WHITE BLOOD COUNT (AUTO) 3.1 K/uL (4.8-10.8)
[2019-04-22 06:07] LABS: ALBUMIN 1.3 g/dL (3.4-4.8); CALCIUM 7.9 mg/dL (8.4-11.0); CREATININE 1.45 mg/dL (0.55-1.30); PHOSPHORUS 1.6 mg/dL (2.7-4.5); POTASSIUM 3.4 mmol/L (3.5-5.1); TOTAL BILIRUBIN 0.7 mg/dL (0.0-1.0)
--- NOTE | 2019-04-22 07:24 | NUR ---
ENDORSEMENT Report given to WALTER Xavier using SBAR format and pt care was endorsed. No signs of acute distress or discomfort noted.
--- NOTE | 2019-04-22 07:44 | NUR ---
AM Assessment Pt received from night RN using SBAR. Vital signs stable, no signs of acute distress. Will continue to monitor.
[2019-04-22] MEDS: ATORVASTATIN 10 MG TABLET GT SCH (08:12)
[2019-04-22] MEDS: BACLOFEN 10 MG TABLET GT SCH (08:12)
[2019-04-22] MEDS: CLOPIDOGREL BISULFATE 75 MG TABLET GT SCH (08:13)
[2019-04-22] MEDS: FAMOTIDINE 20 MG TABLET GT SCH (08:13)
[2019-04-22] MEDS: amLODIPine BESYLATE 5 MG TABLET GT SCH (08:13)
[2019-04-22] MEDS: levETIRAcetam 500 MG TABLET GT SCH ×2 (08:13→20:16)
[2019-04-22] MEDS: POLYETHYLENE GLYCOL 3350, 17 GM/ POWD.PACK GT SCH ×2 (08:13→20:17)
[2019-04-22] MEDS: LINEZOLID 300 ML IV SCH ×2 (08:13→20:18)
[2019-04-22] MEDS: metroNIDAZOLE 500 mg/NS 100 ML IV SCH ×2 (08:14→20:18)
[2019-04-22] MEDS: CEFEPIME 1 GM in D5W 50 ML IV SCH ×2 (10:09→20:18)
[2019-04-22] MEDS ORDERED: FUROSEMIDE 20 MG/2 ML VIAL IVP ONE (10:30)
[2019-04-22] MEDS ORDERED: POTASSIUM CHLORIDE 40 MEQ in NS 250 ML IV ONE (10:45)
[2019-04-22] MEDS: FLUCONAZOLE 200 mg/ NS 100 ML IV SCH (12:02)
--- NOTE | 2019-04-22 12:05 | NUR ---
PATIENT RESTING: Patient resting quietly. No acute distress noted. Vital signs within normal range.
--- NOTE | 2019-04-22 14:10 | NUR ---
Rectal Tube Confirmation of rectal tube in place, patent with audible gas and scant feces exiting tube.
--- NOTE | 2019-04-22 15:19 | NUR ---
Nutrition F/U RD reviewed pt's current EMR record including diet Hx, physician notes, nursing notes, pertinent labs/meds/procedures, care trends, and care activity. Current Diet Order: NPO x5 days Current Nutrition Support: PPN D20%, AA8% at 50 ml/hr via peripheral line Provides: 600 kcal/day, 48 gm protein/day, 1200 ml total volume/day, and 0.98 gm CHO/kg/min Meets: 25% of estimated caloric needs and 56% of lower end of estimated protein needs Subjective Info: Pt seen resting in bed, eyes open, +intubated on vent support w/ GT connected to low intermittent suctions. Per studio operations engineer in charge note, pt still has a distended colon, and pt has a rectal tube for decompression. PPN seen infusing as per physician/pharmacy order. vending service technician reported that pt has been having gas, and PPN continues without any issues. MODIFIED Estimated Energy Expenditure (kcals/day) 2435 kcal/day (RMR using PSU 2003b for critical illness, intubation; minute volume: 15.2/temperature: 102.1 degrees C) Estimated Protein Required (g/day) 85-102 gm/day (0.8-1 gm/kg CBW for ARF, sepsis, shocked liver) Estimated Fluid Required (l/day) Per physician (ARF) Problem/Etiology/Signs/Symptoms Increased nutritional needs related to metabolic demands as evidenced by estimated nutritional requirements for sepsis and critical illness, and no currently infusing nutrition support. *improving w/ PPN support Expected Outcomes/Goals - Monitor provision of parenteral nutrition w/ goal of pt meeting at least 25% of estimated nutritional needs, labs trending WNL, normal GI function, and skin integrity/wt maintenance Dietitian Recommendations * Recommend PPN D20%, AA8% at 85 ml/hr (goal rate) via peripheral line (initial concentration)/PPN D10%, AA4% at 85 ml/hr (goal rate) via peripheral line (final concentration) Provides: 1020 kcal/day, 82 gm protein/day, 2040 ml total volume/day, and GIR: 1.7 gm CHO/kg/min Meets: 42% of lower end of estimated caloric intakes and 96% of lower end of estimated protein needs Follow Up High Risk: F/U in 2-3 days Addendum: 04/22/19 at [address] YARA spoke w/ pharmLisandra regarding RD rec. He stated that plan is to gradually increase PPN to RD rec goal rate and continue to monitor pt's condition.
--- NOTE | 2019-04-22 15:30 | NUR ---
Dietitian Recommendations * Recommend PPN D20%, AA8% at 85 ml/hr (goal rate) via peripheral line (initial concentration)/PPN D10%, AA4% at 85 ml/hr (goal rate) via peripheral line (final concentration) Provides: 1020 kcal/day, 82 gm protein/day, 2040 ml total volume/day, and GIR: 1.7 gm CHO/kg/min Meets: 42% of lower end of estimated caloric intakes and 96% of lower end of estimated protein needs LP, RD Please refer to Nutrition F/U for details.
--- NOTE | 2019-04-22 15:41 | NUR ---
O And M Supervisor Note WELT TREATER phoned patient's , Alla, . She stated she and her daughter and son were "coping as well as we can". Offered support. She questioned if patient's bed would be available at [facility] upon discharge. If patient was to go to another SNF, especially closer to [place], that would be satisfactory. WELT TREATER phoned [facility] Brittnee CAMARENA, . If patient requires vent/subacute care upon DC, [place] would be the preferred placement. Brittnee was made aware of patient's 's wishes and will coordinate discharge when the time comes. WELT TREATER phoned [facility] [phone]. Updated them on patient's status. Patient is on a 7 day bed hold, which may prior to discharge. Phoned Alla and notified her of above. Will remain available.
[2019-04-22] MEDS: NACL 0.9% 1,000 ML IV SCH (17:44)
[2019-04-22] MEDS ORDERED: POTASSIUM ACETATE IV SCH ×9 (18:00)
[2019-04-22] MEDS ORDERED: [UNRECOGNIZED DRUG - OTHER] IV SCH ×9 (18:00)
[2019-04-22] MEDS ORDERED: SODIUM ACETATE IV SCH ×9 (18:00)
--- NOTE | 2019-04-22 18:18 | NUR ---
Resting Pt resting in bed with eyes open, pt nodded head when asked if he wants to watch TV. Pt is tracking TV and is observed to be engaging with the program.
--- NOTE | 2019-04-22 19:25 | NUR ---
Closing Notes Pt endorsed to night RN using SBAR. VSS.
--- NOTE | 2019-04-22 19:30 | NUR ---
PM ASSESSMENT REPORT RECEIVED FROM PATRICK WATSON. PT RECEIVED IN BED WITH EYES OPEN, RESPONDING TO TACTILE STIMULATION. VSS, NO S/S OF ACUTE DISTRESS NOTED. PT INTUBATED, VENT SETTINGS: SIMV 6, TV 500, FIO2 30%, PEEP 5, PS 10. NETTA MIDLINE IN PLACE INFUSING NS @ 60 CC/HR AND PPN @ 50 CC/HR. R AND L HAND 22G TO SL PATENT AND INTACT. G-TUBE IN PLACE TO LOW INTERMITTENT SUCTION. GRIMALDO CATH IN PLACE DRAINING YELLOW URINE TO GRAVITY. RECTAL TUBE IN PLACE FOR GAS DECOMPRESSION. SCDs IN PLACE. HOB ELEVATED, BED IN LOWEST POSITION, CALL LIGHT IN REACH. WILL CONTINUE TO MONITOR PT.
[2019-04-22] MEDS: ACETAMINOPHEN 650 MG/20.3 ML UDC GT PRN (20:17)
--- NOTE | 2019-04-22 23:30 | NUR ---
CHG CHG BATH GIVEN AT THIS TIME. LINENS CHANGED AND KIN CARE PROVIDED. PT TOLERATED WELL. NO S/S OF ACUTE DISTRESS NOTED. WILL CONTINUE TO MONITOR PT.
[2019-04-23] VITALS (37 sets, daily range): BP systolic 117–164
[2019-04-23] MEDS: IPRATROPIUM BROM 0.5 MG/2.5 ML VIAL.NEB (ATROVENT) INH SCH ×4 (01:00→20:07)
[2019-04-23] MEDS: LevALBUTEROL HCL 1.25 MG/0.5 ML *CONC.* VIAL.NEB (XOPENEX CONC.) INH SCH ×4 (01:00→20:07)
[2019-04-23] MEDS: ACETAMINOPHEN 650 MG/20.3 ML UDC GT PRN ×2 (03:25→12:02)
--- NOTE | 2019-04-23 03:47 | NUR ---
BM PT HAD MODERATE AMOUNT OF LOOSE STOOL AT THIS TIME. KIN CARE DONE AND LINENS CHANGED. PT REPOSITIONED AT THIS TIME. PT TEMP 101.3 AT THIS TIME. TYLENOL GIVEN PER ORDERS AND COOLING MEASURES REAPPLIED. WILL CONTINUE TO MONITOR PT.
[2019-04-23] MEDS: INSULIN REGULAR, HUMAN 100 UNITS/ML, 10 ML VIAL (humuLIN R) SUBCUT PRN ×4 (05:05→23:25)
[2019-04-23 05:18] LABS: HEMOGLOBIN 8.9 g/dL (14.0-18.0); MEAN CORPUSCULAR HEMOGLOBIN 25 pg (27-31); MEAN CORPUSCULAR HGB CONC 32 % (32-36); MEAN CORPUSCULAR VOLUME 79 fL (79.0-98.0); PLATELET COUNT (AUTO) 105 K/uL (130-430); RED BLOOD CELL COUNT(AUTO) 3.56 MIL/uL (4.2-6.2); RED CELL DISTRIBUTION WIDTH 16.1 % (9.0-15.0); WHITE BLOOD COUNT (AUTO) 3.6 K/uL (4.8-10.8)
[2019-04-23 05:34] LABS: ATYPICAL LYMPHOCYTES % 0 % (0-0); BAND % (MANUAL) 6 % (0-6); LYMPHOCYTES % (MANUAL) 8 % (20-46); MONOCYTES % (MANUAL) 14 % (0-11)
[2019-04-23 05:35] LABS: BASOPHILS % (MANUAL) 0 % (0-2); EOSINOPHILS % (MANUAL) 7 % (0-7); METAMYELOCYTES % 2 % (0-0); MYELOCYTES % 1 % (0-0)
[2019-04-23 05:44] LABS: ALBUMIN 1.3 g/dL (3.4-4.8); CALCIUM 7.9 mg/dL (8.4-11.0); CREATININE 1.44 mg/dL (0.55-1.30); PHOSPHORUS 1.4 mg/dL (2.7-4.5); POTASSIUM 3.3 mmol/L (3.5-5.1); TOTAL BILIRUBIN 0.7 mg/dL (0.0-1.0)
--- NOTE | 2019-04-23 07:12 | NUR ---
ENDORSEMENT BEDSIDE REPORT GIVEN TO CONNOR WATSON USING SBAR APPROACH.
--- NOTE | 2019-04-23 07:22 | NUR ---
Opening Note Received bedside report from Siria WATSON for continuation of care. Received patient resting in bed, no signs or symptoms of acute distress noted. RT at bedside. Bed locked in lowest position and bed alarm on.
[2019-04-23] MEDS: LINEZOLID 300 ML IV SCH ×2 (08:49→20:41)
[2019-04-23] MEDS: CEFEPIME 1 GM in D5W 50 ML IV SCH ×2 (08:49→20:41)
[2019-04-23] MEDS: ATORVASTATIN 10 MG TABLET GT SCH (08:49)
[2019-04-23] MEDS: CLOPIDOGREL BISULFATE 75 MG TABLET GT SCH (08:49)
[2019-04-23] MEDS: POLYETHYLENE GLYCOL 3350, 17 GM/ POWD.PACK GT SCH ×2 (08:49→20:40)
[2019-04-23] MEDS: metroNIDAZOLE 500 mg/NS 100 ML IV SCH ×2 (08:49→20:41)
[2019-04-23] MEDS: FAMOTIDINE 20 MG TABLET GT SCH (08:49)
[2019-04-23] MEDS: levETIRAcetam 500 MG TABLET GT SCH ×2 (08:50→20:40)
[2019-04-23] MEDS: amLODIPine BESYLATE 5 MG TABLET GT SCH (08:50)
[2019-04-23] MEDS: BACLOFEN 10 MG TABLET GT SCH (08:50)
--- NOTE | 2019-04-23 09:03 | NUR ---
Dr. Butcher in to see patient. Made aware of potassium 3.3, no new orders received.
--- NOTE | 2019-04-23 09:05 | NUR ---
Spoke with patient's sister on the phone, updated on patient status and plan of care. All questions answered clearly.
--- NOTE | 2019-04-23 09:40 | NUR ---
Dr. Jimenes in to see patient. No new orders received.
[2019-04-23] MEDS: NACL 0.9% 1,000 ML IV SCH (12:00)
[2019-04-23] MEDS: FLUCONAZOLE 200 mg/ NS 100 ML IV SCH (12:00)
[2019-04-23] MEDS: MORPHINE 2 MG/ML INJ. SYRINGE IVP PRN ×2 (12:02→13:54)
--- NOTE | 2019-04-23 14:06 | NUR ---
Patient's Kelly at bedside. Updated on patient status and plan of care. All questions answered clearly and education provided.
--- NOTE | 2019-04-23 14:28 | NUR ---
Dr. Monroe in to see patient. New orders received.
[2019-04-23] MEDS ORDERED: POTASSIUM CHLORIDE 40 MEQ in NS 250 ML IV ONE (14:30)
--- NOTE | 2019-04-23 17:12 | NUR ---
BM/Linens Patient had large soft BM at this time. Romi care performed and bed linens changed. Patient repositioned and suctioned. Patient temperature 97.1 at this time. No signs or symptoms of acute distress noted. RT at bedside. Patient tolerated well with minimal discomfort.
--- NOTE | 2019-04-23 17:58 | NUR ---
Dr. Cole in to see patient. New orders received.
[2019-04-23] MEDS ORDERED: SODIUM ACETATE IV SCH ×9 (18:00)
[2019-04-23] MEDS ORDERED: [UNRECOGNIZED DRUG - OTHER] IV SCH ×9 (18:00)
[2019-04-23] MEDS ORDERED: POTASSIUM ACETATE IV SCH ×9 (18:00)
--- NOTE | 2019-04-23 18:02 | NUR ---
Patient's son John at bedside. Updated on patient status and plan of care. All questions answered clearly and education provided.
--- NOTE | 2019-04-23 19:06 | NUR ---
Endorsement Endorsed bedside report to Jaxon RN using SBAR approach for continuation of care.
--- NOTE | 2019-04-23 19:10 | NUR ---
PM ASSESSMENT Pt in bed w/ eyes closed resting comfortably, no signs of acute distress or discomfort noted. Pt able to track. VSS w/ SR seen on the monitor. Pt intubated, sz 7.5, lip line at 26 cm. Vent settings: SIMV 6, TV 500, FIO2 30%, PEEP of 5 and PS 10. Pt tolerating settings well w/ O2 sats @ 99% and even and unlabored breathing. Pt has a NETTA midline infusing NS @ 50 cc/hr and PPN @ 73.75 cc/hr. Dressing c/d/i. Pt also has a R hand and L hand 22g SL. Dressing c/d/i. Gtube noted connected to low int suction. Mary cath noted draining urine to gravity. Rectal tube red mcwilliams noted to decompress colon. Pt has a rectal temp monitor and cooling blanket. SCD's noted to pt's bilateral lower legs. Bed is locked and in lowest position, call light w/in reach, will continue to monitor.
[2019-04-24] VITALS (37 sets, daily range): BP systolic 94–152
--- NOTE | 2019-04-24 | NUR ---
Pt in bed w/ eyes closed resting comfortably. No signs of acute distress or discomfort noted. Pt repositioned at this time and oral care was given. Pt tolerated well, will continue to monitor pt.
[2019-04-24] MEDS: LevALBUTEROL HCL 1.25 MG/0.5 ML *CONC.* VIAL.NEB (XOPENEX CONC.) INH SCH ×4 (01:50→20:10)
[2019-04-24] MEDS: IPRATROPIUM BROM 0.5 MG/2.5 ML VIAL.NEB (ATROVENT) INH SCH ×4 (01:50→20:10)
--- NOTE | 2019-04-24 02:39 | NUR ---
RT at bedside w/ pt. No signs of acute distress or discomfort noted. Will continue to monitor pt.
[2019-04-24] MEDS: MORPHINE 2 MG/ML INJ. SYRINGE IVP PRN ×4 (02:57→22:37)
--- NOTE | 2019-04-24 04:00 | NUR ---
CHG CHG bath given to pt and pt was repositioned at this time. Pt tolerated well, will continue to monitor.
[2019-04-24] MEDS: INSULIN REGULAR, HUMAN 100 UNITS/ML, 10 ML VIAL (humuLIN R) SUBCUT PRN ×3 (05:26→18:00)
[2019-04-24 06:03] LABS: ALBUMIN 1.2 g/dL (3.4-4.8); CALCIUM 7.5 mg/dL (8.4-11.0); CREATININE 1.34 mg/dL (0.55-1.30); PHOSPHORUS 1.6 mg/dL (2.7-4.5); POTASSIUM 3.9 mmol/L (3.5-5.1); TOTAL BILIRUBIN 0.6 mg/dL (0.0-1.0)
--- NOTE | 2019-04-24 07:10 | NUR ---
ENDORSEMENT Report given to WALTER Paredes using SBAR format and pt care was endorsed. No signs of acute distress or discomfort noted.
--- NOTE | 2019-04-24 07:20 | NUR ---
Opening Note Received plan of care via SBAR from endorsing nurse Jaxon WATSON. Completed bedside rounds.
[2019-04-24] MEDS: levETIRAcetam 500 MG TABLET GT SCH ×2 (08:56→20:04)
[2019-04-24] MEDS: CLOPIDOGREL BISULFATE 75 MG TABLET GT SCH (08:56)
[2019-04-24] MEDS: CEFEPIME 1 GM in D5W 50 ML IV SCH ×2 (08:56→20:04)
[2019-04-24] MEDS: NACL 0.9% 1,000 ML IV SCH (08:56)
[2019-04-24] MEDS: ATORVASTATIN 10 MG TABLET GT SCH (08:56)
[2019-04-24] MEDS: BACLOFEN 10 MG TABLET GT SCH (08:57)
[2019-04-24] MEDS: FAMOTIDINE 20 MG TABLET GT SCH (08:57)
[2019-04-24] MEDS: POLYETHYLENE GLYCOL 3350, 17 GM/ POWD.PACK GT SCH ×2 (08:57→20:04)
[2019-04-24] MEDS: amLODIPine BESYLATE 5 MG TABLET GT SCH (08:57)
[2019-04-24] MEDS: metroNIDAZOLE 500 mg/NS 100 ML IV SCH ×2 (09:37→20:55)
[2019-04-24] MEDS: LINEZOLID 300 ML IV SCH ×2 (10:03→22:10)
[2019-04-24] MEDS: FLUCONAZOLE 200 mg/ NS 100 ML IV SCH (13:36)
--- NOTE | 2019-04-24 14:30 | NUR ---
Dr. Monroe at bedside. Received order for lasix and plan to titrate pt off the ventilator. Will try cpap.
[2019-04-24] MEDS ORDERED: FUROSEMIDE 20 MG/2 ML VIAL IVP ONE (14:45)
--- NOTE | 2019-04-24 17:00 | NUR ---
RT at bed side changing pt vent settings to CPAP as Dr. Monroe ordered.
--- NOTE | 2019-04-24 17:34 | NUR ---
RT NOTE: 1705 PLACED PT ON CPAP [address] CARRASQUILLO. VITAL SIGNS WITHIN RANGE RN MAKE AWARE WILL CONTINUE TO MONITOR Addendum: 04/24/19 at 1735 by Joann Kitchen RT Amended: Links added.
[2019-04-24] MEDS ORDERED: [UNRECOGNIZED DRUG - OTHER] IV SCH ×9 (18:00)
[2019-04-24] MEDS ORDERED: POTASSIUM ACETATE IV SCH ×9 (18:00)
[2019-04-24] MEDS ORDERED: SODIUM ACETATE IV SCH ×9 (18:00)
--- NOTE | 2019-04-24 19:33 | NUR ---
Closing Note Provided plan of care to endorsing nurse via aiyana Arteaga RN. Completed bedside round.
--- NOTE | 2019-04-24 19:55 | NUR ---
PM Assessment Pt in bed, lethargic, Pt unable to speak or follow commands, but able to track. Alert to verbal stimuli. SR shown on monitor, Pt intubated on CPAP 5, w/ PS 10. Pt saturating in the mid-high 90s. No s/s of distress noted. Pt has NETTA Midline and Rt hand 22g in place. Sites C/D/I, no s/s of infiltration noted. PPN running @ 73.75 cc/hr. Pt tolerating well. G-tube in place set to low intermittent suction. Mary catheter in place draining yellow urine to gravity. Skin intact, will continue to turn Pt Q2H. Bed locked in lowest position, call light in reach, and safety precautions in place. Will continue to monitor.
[2019-04-24] MEDS: ACETAMINOPHEN 650 MG/20.3 ML UDC GT PRN (22:10)
--- NOTE | 2019-04-24 22:30 | NUR ---
Vent Settings Pt in distress with CPAP setting. Vent settings changed to SIMV 8, FIO2 30%, PS 10, PEEP 5. No s/s of distress noted at this time. Pt saturating in the mid-high 90s, with respirations below 21. Will continue to monitor.
[2019-04-25] VITALS (33 sets, daily range): BP systolic 101–173
[2019-04-25] MEDS: INSULIN REGULAR, HUMAN 100 UNITS/ML, 10 ML VIAL (humuLIN R) SUBCUT PRN ×4 (00:08→18:18)
--- NOTE | 2019-04-25 00:35 | NUR ---
RN Rounds Pt in bed asleep. No s/s of distress noted. VSS. Will continue to monitor.
--- NOTE | 2019-04-25 01:00 | NUR ---
CHG CHG bath given and linens changed. Pt tolerated well. VSS. Will continue to monitor.
--- NOTE | 2019-04-25 01:15 | NUR ---
Stool specimen collected and sent to lab for C. Diff toxin array.
[2019-04-25] MEDS: IPRATROPIUM BROM 0.5 MG/2.5 ML VIAL.NEB (ATROVENT) INH SCH ×4 (01:18→18:53)
[2019-04-25] MEDS: LevALBUTEROL HCL 1.25 MG/0.5 ML *CONC.* VIAL.NEB (XOPENEX CONC.) INH SCH ×4 (01:18→18:53)
--- NOTE | 2019-04-25 03:46 | NUR ---
RN Rounds Pt in bed asleep. VSS. No s/s of distress noted. Pt tolerating SIMV settings. Pt no longer has fever. Will continue to monitor.
[2019-04-25 05:42] LABS: HEMATOCRIT 26.4 % (36-54); HEMOGLOBIN 8.4 g/dL (14.0-18.0); MEAN CORPUSCULAR HEMOGLOBIN 25 pg (27-31); MEAN CORPUSCULAR HGB CONC 32 % (32-36); MEAN CORPUSCULAR VOLUME 79 fL (79.0-98.0); PLATELET COUNT (AUTO) 114 K/uL (130-430); RED BLOOD CELL COUNT(AUTO) 3.36 MIL/uL (4.2-6.2); RED CELL DISTRIBUTION WIDTH 16.5 % (9.0-15.0); WHITE BLOOD COUNT (AUTO) 4.6 K/uL (4.8-10.8)
[2019-04-25 06:13] LABS: ALBUMIN 1.3 g/dL (3.4-4.8); CALCIUM 7.5 mg/dL (8.4-11.0); CREATININE 1.23 mg/dL (0.55-1.30); POTASSIUM 3.9 mmol/L (3.5-5.1); TOTAL BILIRUBIN 0.7 mg/dL (0.0-1.0)
--- NOTE | 2019-04-25 06:24 | NUR ---
Closing Note Pt in bed asleep. Alert, but not oriented. Pt still able to track. SR shown on monitor. Vent settings: SIMV 8, FIO2 30%, TV 500, PS 10, PEEP 5. Pt tolerating well, saturating in the mid-high 90s. NETTA midline and Rt Hand 22g in place, sites C/D/I. No s/s of infiltration noted. PPN running @ 73.75cc/hr. Pt tolerating well. G-tube set to low intermittent suction. Mary catheter in place, draining yellow/ vikas urine to gravity. [place] rectal tube in place. Skin remains intact, no s/s of breakdown noted. Pt being turned Q2H. Bed locked in lowest position, call light in reach, and safety precautions in place, will endorse to oncoming RN.
--- NOTE | 2019-04-25 07:20 | NUR ---
Endorsement Report given to oncoming RN at bedside via SBA approach.
--- NOTE | 2019-04-25 07:20 | NUR ---
Received patient from [facility] shift nurse. Patient in bed sleeping side rails x 3 up call light with in reach in no acute distress.
[2019-04-25 07:24] LABS: ATYPICAL LYMPHOCYTES % 2 % (0-0); BAND % (MANUAL) 6 % (0-6); BASOPHILS % (MANUAL) 0 % (0-2); EOSINOPHILS % (MANUAL) 1 % (0-7); LYMPHOCYTES % (MANUAL) 15 % (20-46); MONOCYTES % (MANUAL) 11 % (0-11)
[2019-04-25] MEDS: ACETAMINOPHEN 650 MG/20.3 ML UDC GT PRN (08:40)
[2019-04-25] MEDS: FAMOTIDINE 20 MG TABLET GT SCH (08:41)
[2019-04-25] MEDS: levETIRAcetam 500 MG TABLET GT SCH ×2 (08:41→21:20)
[2019-04-25] MEDS: CLOPIDOGREL BISULFATE 75 MG TABLET GT SCH (08:41)
[2019-04-25] MEDS: MORPHINE 2 MG/ML INJ. SYRINGE IVP PRN ×2 (08:41→11:18)
[2019-04-25] MEDS: amLODIPine BESYLATE 5 MG TABLET GT SCH (08:42)
[2019-04-25] MEDS: BACLOFEN 10 MG TABLET GT SCH (08:42)
[2019-04-25] MEDS: ATORVASTATIN 10 MG TABLET GT SCH (08:42)
[2019-04-25] MEDS: CEFEPIME 1 GM in D5W 50 ML IV SCH ×2 (08:44→21:20)
[2019-04-25] MEDS: LINEZOLID 300 ML IV SCH ×2 (08:44→21:21)
[2019-04-25] MEDS: metroNIDAZOLE 500 mg/NS 100 ML IV SCH ×2 (08:44→21:20)
[2019-04-25] MEDS: POLYETHYLENE GLYCOL 3350, 17 GM/ POWD.PACK GT SCH ×2 (08:45→21:00)
[2019-04-25 09:24] LABS: PHOSPHORUS 2.3 mg/dL (2.7-4.5)
[2019-04-25] MEDS: LORazepam 2 MG/ML VIAL IVP PRN (10:14)
--- NOTE | 2019-04-25 10:40 | NUR ---
Patient left unit for cat scan.
--- NOTE | 2019-04-25 11:52 | NUR ---
Spoke with Dr. Jung and reported CT results. Orders left to place patient back on AC.
--- NOTE | 2019-04-25 11:58 | NUR ---
RT NOTES- AC 10 VENT SETTING CHANGED TO AC10, 500, +5, 30%FIO2 AT THIS TIME PER DR BRENNAN. WALTER NG MADE AWARE. WILL CONTINUE MONITORING.
--- NOTE | 2019-04-25 12:17 | NUR ---
Nutrition F/U RD reviewed pt's current EMR record including diet Hx, physician notes, nursing notes, pertinent labs/meds/procedures, care trends, and care activity. Current Diet Order: NPO x8 days Current Nutrition Support: PPN D20%, AA8% at 73.75 ml/hr via peripheral line (SEEN INFUSING) Provides: 900 kcal/day, 72 gm protein/day, 1770 ml total volume/day, and 1.5 gm CHO/kg/min Meets: 39% of estimated caloric needs and 85% of lower end of estimated protein needs Subjective Info: Pt seen resting in bed, eyes open, +intubated on vent support, w/ PPN infusing, and family at bedside. Plans for pt to advance to goal rate of 85 ml/hr for PPN support, c/w RD rec. Wt has been stable at 187 lb since 04/19/19 per EMR. MODIFIED Estimated Energy Expenditure (kcals/day) 2317 kcal/day (RMR using PSU 2003b for critical illness, intubation; minute volume: 11.4/temperature: 102 degrees C) Estimated Protein Required (g/day) 85-102 gm/day (0.8-1 gm/kg CBW for ARF, sepsis, shocked liver) Estimated Fluid Required (l/day) Per physician (ARF) Problem/Etiology/Signs/Symptoms Increased nutritional needs related to metabolic demands as evidenced by estimated nutritional requirements for sepsis and critical illness, and no currently infusing nutrition support. *improving w/ PPN support Expected Outcomes/Goals - Monitor provision of parenteral nutrition w/ goal of pt meeting at least 25% of estimated nutritional needs, labs trending WNL, normal GI function, and skin integrity/wt maintenance Dietitian Recommendations * Recommend PPN D20%, AA8% at 85 ml/hr (goal rate) via peripheral line (initial concentration)/PPN D10%, AA4% at 85 ml/hr (goal rate) via peripheral line (final concentration) Provides: 1020 kcal/day, 82 gm protein/day, 2040 ml total volume/day, and GIR: 1.7 gm CHO/kg/min Meets: 44% of lower end of estimated caloric intakes and 96% of lower end of estimated protein needs Follow Up High Risk: F/U in 2-3 days
--- NOTE | 2019-04-25 12:26 | NUR ---
Dietitian Recommendations * Recommend PPN D20%, AA8% at 85 ml/hr (goal rate) via peripheral line (initial concentration)/PPN D10%, AA4% at 85 ml/hr (goal rate) via peripheral line (final concentration) Provides: 1020 kcal/day, 82 gm protein/day, 2040 ml total volume/day, and GIR: 1.7 gm CHO/kg/min Meets: 44% of lower end of estimated caloric intakes and 96% of lower end of estimated protein needs LP, RD Please refer to Nutrition F/U for details.
[2019-04-25] MEDS: FLUCONAZOLE 200 mg/ NS 100 ML IV SCH (14:50)
[2019-04-25] MEDS: NACL 0.9% 1,000 ML IV SCH (14:57)
[2019-04-25] MEDS ORDERED: SODIUM CHLORIDE IV SCH ×9 (18:00)
[2019-04-25] MEDS ORDERED: [UNRECOGNIZED DRUG - OTHER] IV SCH ×9 (18:00)
[2019-04-25] MEDS ORDERED: POTASSIUM ACETATE IV SCH ×9 (18:00)
--- NOTE | 2019-04-25 19:31 | NUR ---
Endorsed patient and report to NOC shift nurse. Patient in bed in no acute distress side rails x 3 up call light in reach.
--- NOTE | 2019-04-25 20:35 | NUR ---
Patient awake family members at the bedside motor movement noted to left arm & hand HOB elevated ORAL INTUBATION noted on VENTILATOR chest movement shallow symmetrical skin dry warm continue to monitor .
--- NOTE | 2019-04-25 21:56 | NUR ---
SUCTION UPRIGHT POSITION THICK WHITE SPUTUM COUGH REFLEX NOTED , ON VENTILATOR MINIMAL ALARMING NOTED POSITION CHANGE ON SCHEDULE TOLERATED .
--- NOTE | 2019-04-25 22:46 | NUR ---
KEPPRA 500 MG PER GT administer for SEIZURE CONTROL no visual seizure activity noted side Rails are padded continue to monitor .
--- NOTE | 2019-04-25 22:59 | NUR ---
REPOSITION & TURNING PATIENT OFF LOADING WITH PILLOWS ON SCHEDULE KEPT CLEAN ALSO DRY NEEDED PATIENT AWAKE ON AND OFF CHEST MOVEMENT SYMMETRICAL UNLABORED .
[2019-04-26] VITALS (26 sets, daily range): BP systolic 108–148
[2019-04-26] MEDS: METOCLOPRAMIDE HCL 10 MG/2 ML VIAL IVP SCH ×5 (00:25→23:32)
[2019-04-26] MEDS: NACL 0.9% 1,000 ML IV SCH ×2 (00:26→18:39)
[2019-04-26] MEDS: INSULIN REGULAR, HUMAN 100 UNITS/ML, 10 ML VIAL (humuLIN R) SUBCUT PRN ×5 (00:28→23:41)
[2019-04-26] MEDS: LevALBUTEROL HCL 1.25 MG/0.5 ML *CONC.* VIAL.NEB (XOPENEX CONC.) INH SCH ×4 (01:00→19:31)
[2019-04-26] MEDS: IPRATROPIUM BROM 0.5 MG/2.5 ML VIAL.NEB (ATROVENT) INH SCH ×4 (01:00→19:31)
--- NOTE | 2019-04-26 01:07 | NUR ---
BSG 279 mg dl Regular Insulin sub q. 6 units administer as ordered patient is Responsive to light touch skin dry warm .
--- NOTE | 2019-04-26 04:40 | NUR ---
PATIENT AWAKE HOB ELEVATED ORAL INTUBATION , SUCTION MODERATE AMOUNT OF THICK WHITE SPUTUM RESPIRATIONS REGULAR ALSO UNLABORED 02 SAT 98 % POSITION CHANGE TOLERATED ON SCHEDULE .
--- NOTE | 2019-04-26 06:31 | NUR ---
LARGE STOOL LOOSE NOTED BED BATH GIVEN ALSO CHG BATH KEPT CLEAN & DRY NEEDED POSITION CHANGE TOLERATED .
--- NOTE | 2019-04-26 07:15 | NUR ---
Received patient from [facility] shift nurse. Patient in bed sleeping side rails x 3 up call light in reach in no acute distress.
--- NOTE | 2019-04-26 07:15 | NUR ---
RT NOTES- CPAP PLACED PT ON CPAP5, PS8, 30%FIO2 PER . RN MADE AWARE. WILL KEEP MONITORING.
[2019-04-26 07:18] LABS: HEMATOCRIT 24.6 % (36-54); MEAN CORPUSCULAR HEMOGLOBIN 25 pg (27-31); MEAN CORPUSCULAR HGB CONC 33 % (32-36); MEAN CORPUSCULAR VOLUME 78 fL (79.0-98.0); PLATELET COUNT (AUTO) 142 K/uL (130-430); RED BLOOD CELL COUNT(AUTO) 3.16 MIL/uL (4.2-6.2); RED CELL DISTRIBUTION WIDTH 16.7 % (9.0-15.0); WHITE BLOOD COUNT (AUTO) 3.6 K/uL (4.8-10.8)
--- NOTE | 2019-04-26 08:00 | NUR ---
Patient refused oral care. Educated patient and offered x 3.
[2019-04-26] MEDS: CEFEPIME 1 GM in D5W 50 ML IV SCH ×2 (08:48→23:32)
[2019-04-26] MEDS: CLOPIDOGREL BISULFATE 75 MG TABLET GT SCH (08:49)
[2019-04-26] MEDS: FAMOTIDINE 20 MG TABLET GT SCH (08:49)
[2019-04-26] MEDS: LINEZOLID 300 ML IV SCH ×2 (08:49→21:59)
[2019-04-26] MEDS: metroNIDAZOLE 500 mg/NS 100 ML IV SCH ×2 (08:49→20:27)
[2019-04-26] MEDS: BACLOFEN 10 MG TABLET GT SCH (08:50)
[2019-04-26] MEDS: levETIRAcetam 500 MG TABLET GT SCH ×2 (08:50→22:00)
[2019-04-26] MEDS: amLODIPine BESYLATE 5 MG TABLET GT SCH (08:50)
[2019-04-26] MEDS: ATORVASTATIN 10 MG TABLET GT SCH (08:52)
[2019-04-26 08:59] LABS: ALBUMIN 1.3 g/dL (3.4-4.8); CALCIUM 7.5 mg/dL (8.4-11.0); CREATININE 1.31 mg/dL (0.55-1.30); PHOSPHORUS 2.2 mg/dL (2.7-4.5); POTASSIUM 3.5 mmol/L (3.5-5.1); TOTAL BILIRUBIN 0.5 mg/dL (0.0-1.0)
[2019-04-26] MEDS: POLYETHYLENE GLYCOL 3350, 17 GM/ POWD.PACK GT SCH ×2 (09:00→21:00)
--- NOTE | 2019-04-26 09:10 | NUR ---
Dr. Jung in to see pt. He may extubate pt.
[2019-04-26 09:28] LABS: ATYPICAL LYMPHOCYTES % 0 % (0-0); BAND % (MANUAL) 5 % (0-6); BASOPHILS % (MANUAL) 0 % (0-2); EOSINOPHILS % (MANUAL) 0 % (0-7); LYMPHOCYTES % (MANUAL) 20 % (20-46); MONOCYTES % (MANUAL) 10 % (0-11)
--- NOTE | 2019-04-26 09:35 | NUR ---
Pt had a large liquid yellow brown stool. Romi care done. Pt on CPAP during cleaning and turning and was SOB afterwards. RR 30's with sats 99%. Other VSS. Dr. Jung at the bedside and placed pt back on AC 10 to let him rest for a little while. He will be back to see pt again to decide about extubation.
--- NOTE | 2019-04-26 10:30 | NUR ---
Dr. Jung called and will keep patient on the vent and wants the rate changed to AC 12 with CPAP in the AM. RT made aware.
--- NOTE | 2019-04-26 10:40 | NUR ---
RT NOTES- AC 12 PLACED PT ON AC 12, 500, +5, 30%FIO2 PER DR. BRENNAN. LABORER [employer]OCK KALINA MADE AWARE. WILL CONTINUE MONITORING.
--- NOTE | 2019-04-26 11:09 | NUR ---
Pt refusing lab draw for type and screen for blood transfusion. Explained to pt that the doctor wants him to have a blood transfusion and he pushes the lab personnel away. Bedside RN informed his and she said she is coming down to talk to him.
--- NOTE | 2019-04-26 12:00 | NUR ---
Patient refused oral care. Educated patient and offered x 3.
[2019-04-26] MEDS: LORazepam 2 MG/ML VIAL IVP PRN ×2 (12:08→22:16)
[2019-04-26] MEDS: FLUCONAZOLE 200 mg/ NS 100 ML IV SCH (12:08)
--- NOTE | 2019-04-26 12:30 | NUR ---
at bedside so lab could draw type and screen for blood ordered.
--- NOTE | 2019-04-26 14:44 | NUR ---
Called lab to inquire about when blood would be ready. They just received it form the [facility]. They will call when it is ready.
--- NOTE | 2019-04-26 17:21 | NUR ---
MD Jimenes new order Jevity 1.2 10 cc an hour. 50 cc water flushes every 6 hours and hold for residual over 150 cc every 6 hours. Dietary consult for tomorrow for GT feeding, called and left message. Orders placed and carried out.
[2019-04-26] MEDS ORDERED: POTASSIUM ACETATE IV SCH ×10 (18:00)
[2019-04-26] MEDS ORDERED: [UNRECOGNIZED DRUG - OTHER] IV SCH ×10 (18:00)
[2019-04-26] MEDS ORDERED: SODIUM CHLORIDE IV SCH ×10 (18:00)
--- NOTE | 2019-04-26 19:10 | NUR ---
PM SHIFT ASSESSMENT Pt awake/alert, able to answer some questions by nodding head yes or no. SPO2 via vent, pt tolerating current vent settings. SR noted on monitor. Gtube to low int suction. Mary catheter in place and draining to gravity. Skin warm and dry. Midline to NETTA with TPN and IVF infusing, no signs of infiltration noted. Seizure precautions in place, call light within reach. Will continue to monitor.
--- NOTE | 2019-04-26 19:20 | NUR ---
Endorsed patient and gave report to NOC shift. Patient in bed side rails x 3 up call light with in reach in no acute distress.
--- NOTE | 2019-04-26 20:05 | NUR ---
TUBEFEEDING Tubefeeding started per MD order. Will continue to monitor.
--- NOTE | 2019-04-26 23:30 | NUR ---
CHG CHG bath given. Pt tolerated care well.
[2019-04-27] VITALS (29 sets, daily range): BP systolic 130–162
[2019-04-27] MEDS: LevALBUTEROL HCL 1.25 MG/0.5 ML *CONC.* VIAL.NEB (XOPENEX CONC.) INH SCH ×4 (00:59→19:36)
[2019-04-27] MEDS: IPRATROPIUM BROM 0.5 MG/2.5 ML VIAL.NEB (ATROVENT) INH SCH ×4 (00:59→19:36)
[2019-04-27 05:35] LABS: BASOPHILS % (AUTO) 0.2 % (0.0-2.0); EOSINOPHILS # (AUTO) 0.1 K/uL (0.0-0.4); HEMATOCRIT 28.8 % (36-54); HEMOGLOBIN 9.4 g/dL (14.0-18.0); LYMPHOCYTES # (AUTO) 0.9 K/uL (1.0-5.5); LYMPHOCYTES % (AUTO) 17.1 % (20.5-51.5); MEAN CORPUSCULAR HEMOGLOBIN 26 pg (27-31); MEAN CORPUSCULAR HGB CONC 33 % (32-36); MEAN CORPUSCULAR VOLUME 80 fL (79.0-98.0); MONOCYTES # (AUTO) 0.8 K/uL (0.0-1.0); MONOCYTES % (AUTO) 15.1 % (1.7-9.3); NEUTROPHILS # (AUTO) 3.3 K/uL (1.8-7.7); NEUTROPHILS % (AUTO) 65.6 % (40.0-70.0); RED CELL DISTRIBUTION WIDTH 17.3 % (9.0-15.0); WHITE BLOOD COUNT (AUTO) 5.1 K/uL (4.8-10.8)
[2019-04-27] MEDS: METOCLOPRAMIDE HCL 10 MG/2 ML VIAL IVP SCH ×4 (05:37→23:32)
[2019-04-27] MEDS: INSULIN REGULAR, HUMAN 100 UNITS/ML, 10 ML VIAL (humuLIN R) SUBCUT PRN ×4 (05:38→23:40)
[2019-04-27 05:42] LABS: ALBUMIN 1.3 g/dL (3.4-4.8); CALCIUM 7.5 mg/dL (8.4-11.0); CREATININE 1.19 mg/dL (0.55-1.30); PHOSPHORUS 2.5 mg/dL (2.7-4.5); PLATELET COUNT (AUTO) 108 K/uL (130-430); POTASSIUM 3.7 mmol/L (3.5-5.1); TOTAL BILIRUBIN 0.5 mg/dL (0.0-1.0)
--- NOTE | 2019-04-27 07:29 | NUR ---
Opening Note: Received plan of care via sbar from endorsing nurse Monse WATSON. Completed bedside round.
--- NOTE | 2019-04-27 07:30 | NUR ---
ENDORSEMENT Pt care endorsed to WALTER Paredes at bedside using nursing SBAR.
--- NOTE | 2019-04-27 07:30 | NUR ---
RT at bedside. Vent settings changed to CPAP. Peep 5 Pressure Support 10.
--- NOTE | 2019-04-27 07:45 | NUR ---
Dr. Candelario at bedside. Vent setting changed as previously noted. No new orders.
[2019-04-27] MEDS: CLOPIDOGREL BISULFATE 75 MG TABLET GT SCH (08:44)
[2019-04-27] MEDS: FAMOTIDINE 20 MG TABLET GT SCH (08:44)
[2019-04-27] MEDS: amLODIPine BESYLATE 5 MG TABLET GT SCH (08:44)
[2019-04-27] MEDS: levETIRAcetam 500 MG TABLET GT SCH ×2 (08:44→20:46)
[2019-04-27] MEDS: POLYETHYLENE GLYCOL 3350, 17 GM/ POWD.PACK GT SCH ×2 (08:44→20:46)
[2019-04-27] MEDS: ATORVASTATIN 10 MG TABLET GT SCH (08:44)
[2019-04-27] MEDS: LINEZOLID 300 ML IV SCH ×2 (08:45→20:47)
[2019-04-27] MEDS: ACETAMINOPHEN 650 MG/20.3 ML UDC GT PRN (10:14)
--- NOTE | 2019-04-27 10:30 | NUR ---
Called RT for assistance due to PT not tolerating CPAP. PT was tachypneic and tachycardic and appeared agitated. Changed vent setting back to AC 12, TV 500, FiO2 30, Peep 5.
--- NOTE | 2019-04-27 11:00 | NUR ---
Spoke to Dr. Candelario to report ABG results and pt not tolerating CPAP. Dr. Candelario informed and agreed to keep PT on AC.
--- NOTE | 2019-04-27 11:28 | NUR ---
Nutrition F/U RD reviewed pt's current EMR including diet Hx, physician notes, nursing notes, pertinent labs/meds/procedures, care trends and care activity. Current Diet Order/Nutrition Support: PPN D20% AA8% ar 86.44ml/hr via peripheral line Jevity 1.2 at 10ml/hr, FWF 50ml Q6H via GT x0 day Subjective information: RD received Nutrition Consult for GT feeding 03/3019. Pt seen in bed, Jevity 1.2 infusing and PPN infusing at time of RD visit. Per RN report, TF started this morning at 7am. RN also reported 20ml of residual and dark brown BM earlier today. Pt is on vent and may benefit from TF formula Vital AF 1.2. Once EN regimen is tolerated and meeting 75-100% of estimated needs, may D/C PPN. RD s/w Pharmacist Abran [phone] 04/27/19. Current PO intake: n/a on EN and TPN support. MODIFIED Estimated Energy Expenditure (kcals/day) 2176 kcal/day (RMR using PSU 2003b for critical illness, intubation; minute volume: 12 /temperature: 100.3 degrees F) Estimated Protein Required (g/day) 85-102 gm/day (0.8-1 gm/kg CBW for ARF, sepsis, shocked liver) Estimated Fluid Required (l/day) Per physician (ARF) Problem/Etiology/Signs/Symptoms Increased nutritional needs related to metabolic demands as evidenced by estimated nutritional requirements for sepsis and critical illness, and no currently infusing nutrition support. *improving w/ PPN support and EN regimen Expected Outcomes/Goals - Monitor PPN tolerance and EN regimen tolerance and intake w/ goal of pt meeting at least 80-100% of estimated nutritional needs, labs trending WNL, normal GI function, and skin integrity/wt maintenance Dietitian Recommendations * Recommend Vital AF 1.2 at 30ml/hr (initial rate- increase to goal rate 75ml/hr), FWF 150ml Q6H via GT Initial rate will provide: 864 kcal, 54 gm protein and 1184ml free water daily. Goal rate will provide: 2160 kcal, 135 gm protein and 2060ml/ free water daily. * Recommend continuing D20%, AA8% at 85 ml/hr (goal rate) via peripheral line (initial concentration)/PPN D10%, AA4% at 85 ml/hr (goal rate) via peripheral line (final concentration) Provides: 1020 kcal/day, 82 gm protein/day, 2040 ml total volume/day, and GIR: 1.7 gm CHO/kg/min PPN combined w/ Initial EN rate will provide: 1884 kcal, 136 gm protein and 2624 ml total fluid volume daily. Meets: 87% of estimated calorie needs and 133% of upper end of estimated protein needs. *PPN may be tapered down once EN support is well tolerated and meeting 75% of estimated needs. Follow Up High Risk: F/U in 2-3 days
--- NOTE | 2019-04-27 11:50 | NUR ---
Dietitian Recommendations * Recommend Vital AF 1.2 at 30ml/hr (initial rate- increase to goal rate 75ml/hr), FWF 150ml Q6H via GT Initial rate will provide: 864 kcal, 54 gm protein and 1184ml free water daily. Goal rate will provide: 2160 kcal, 135 gm protein and 2060ml/ free water daily. * Recommend continuing D20%, AA8% at 85 ml/hr (goal rate) via peripheral line (initial concentration)/PPN D10%, AA4% at 85 ml/hr (goal rate) via peripheral line (final concentration) Provides: 1020 kcal/day, 82 gm protein/day, 2040 ml total volume/day, and GIR: 1.7 gm CHO/kg/min PPN combined w/ Initial EN rate will provide: 1884 kcal, 136 gm protein and 2624 ml total fluid volume daily. Meets: 87% of estimated calorie needs and 133% of upper end of estimated protein needs. *PPN may be tapered down once EN support is well tolerated and meeting 75% of estimated needs. Please see Nutrition F/U note for details. YARA DO
[2019-04-27] MEDS ORDERED: POTASSIUM ACETATE IV SCH ×10 (18:00)
[2019-04-27] MEDS ORDERED: [UNRECOGNIZED DRUG - OTHER] IV SCH ×10 (18:00)
[2019-04-27] MEDS ORDERED: SODIUM CHLORIDE IV SCH ×10 (18:00)
--- NOTE | 2019-04-27 19:35 | NUR ---
PM Assessment Pt in bed w/ eyes closed. Alert to verbal stimuli, able to track and follow certain commands. SR/ST shown on monitor. Vent settings: AC 12, FIO2 30%, TV 500, PEEP 5. NETTA Midline in place running NS @ 20 cc/hr, and PPN @ 85cc/hr. Mary catheter in place draining yellow urine to gravity. G-tube in place running Vital AF 1.2 @ 30cc/hr. Pt tolerating, no residual noted. SCDs in place, no skin breakdown noted. Pt turned Q2H. Will continue to monitor.
[2019-04-27] MEDS ORDERED: *HEPARIN PER PHARMACY XX ONE (19:45)
[2019-04-27] MEDS ORDERED: HEPARIN SODIUM,PORCINE 3000 UNITS/0.6 ML BOLUS IVP PRN (20:15)
[2019-04-27] MEDS ORDERED: HEPARIN SODIUM,PORCINE 2000 UNITS/0.4 ML BOLUS IVP PRN (20:15)
[2019-04-27] MEDS: HEPARIN 25,000 UNITS in 250 ML PREMIX IV PRN (20:49)
[2019-04-27] MEDS ORDERED: HEPARIN SODIUM, PORCINE 10,000 UNITS/ 10 ML VIAL ONE (20:56)
[2019-04-28] VITALS (28 sets, daily range): BP systolic 113–159
[2019-04-28] MEDS: LevALBUTEROL HCL 1.25 MG/0.5 ML *CONC.* VIAL.NEB (XOPENEX CONC.) INH SCH ×4 (00:52→19:31)
[2019-04-28] MEDS: IPRATROPIUM BROM 0.5 MG/2.5 ML VIAL.NEB (ATROVENT) INH SCH ×4 (00:52→19:31)
--- NOTE | 2019-04-28 01:20 | NUR ---
RN Rounds Pt in bed asleep, no s/s of distress noted. VSS. Pt does not have a temperature at this time. Will continue to monitor.
[2019-04-28] MEDS: ACETAMINOPHEN 650 MG/20.3 ML UDC GT PRN (02:40)
--- NOTE | 2019-04-28 04:00 | NUR ---
NOTIFIED WITH LAB RESULTS. ORDERS RECEIVED TO GIVE ONE MORE UNIT OF PRBC. Addendum: 04/28/19 at 0417 by Kayy Jackman RN ENTERED IN ERROR.
--- NOTE | 2019-04-28 04:30 | NUR ---
CHG CHG bath given and linens changed. Pt tolerated well. Will continue to monitor.
[2019-04-28 05:06] LABS: INR 1.1 (0.80-1.20); PROTHROMBIN TIME 11.5 SECS (9.5-12.5)
[2019-04-28] MEDS: METOCLOPRAMIDE HCL 10 MG/2 ML VIAL IVP SCH ×3 (05:25→17:22)
[2019-04-28] MEDS: INSULIN REGULAR, HUMAN 100 UNITS/ML, 10 ML VIAL (humuLIN R) SUBCUT PRN ×3 (05:29→17:27)
--- NOTE | 2019-04-28 06:38 | NUR ---
RN Round Pt in bed asleep. VSS. No s/s of distress noted. Pt cleaned. Pt has a lot of thick secretions noted, suctioned from both endotrach and orally. Pt agitated when being suctioned. Will continue to monitor.
--- NOTE | 2019-04-28 07:25 | NUR ---
Opening Note Received bedside report from endorsing RN for continuation of care.
--- NOTE | 2019-04-28 07:30 | NUR ---
Opening Note: Received plan of care via sbar from endorsing nurse WALTER Arteaga. Completed bedside round.
--- NOTE | 2019-04-28 07:31 | NUR ---
Endorsement Report given to oncoming RN at bedside via SBAR approach.
[2019-04-28 08:07] LABS: ALBUMIN 1.3 g/dL (3.4-4.8); CALCIUM 7.8 mg/dL (8.4-11.0); CREATININE 1.29 mg/dL (0.55-1.30); PHOSPHORUS 2.7 mg/dL (2.7-4.5); POTASSIUM 3.5 mmol/L (3.5-5.1); TOTAL BILIRUBIN 0.6 mg/dL (0.0-1.0)
--- NOTE | 2019-04-28 08:46 | NUR ---
Dr. Butcher in to see patient.
[2019-04-28] MEDS: ATORVASTATIN 10 MG TABLET GT SCH (09:06)
[2019-04-28] MEDS: FAMOTIDINE 20 MG TABLET GT SCH (09:06)
[2019-04-28] MEDS: CLOPIDOGREL BISULFATE 75 MG TABLET GT SCH (09:06)
[2019-04-28] MEDS: levETIRAcetam 500 MG TABLET GT SCH ×2 (09:06→21:46)
[2019-04-28] MEDS: POLYETHYLENE GLYCOL 3350, 17 GM/ POWD.PACK GT SCH ×2 (09:06→21:47)
[2019-04-28] MEDS: amLODIPine BESYLATE 5 MG TABLET GT SCH (09:06)
[2019-04-28] MEDS: FUROSEMIDE 20 MG/2 ML VIAL IVP SCH ×2 (09:07→21:46)
--- NOTE | 2019-04-28 09:07 | NUR ---
CONSULT. CALLED UP DR CONDON'S OFFICE, SPOKE TO KORY REGARDING PT'S POSSIBLE TRACH AND G TUBE PLACEMENT.
--- NOTE | 2019-04-28 15:00 | NUR ---
BM Patient had large, loose BM. Pericare performed. Patient repositioned and suctioned. No signs or symptoms of acute distress noted.
[2019-04-28] MEDS: HEPARIN 25,000 UNITS in 250 ML PREMIX IV PRN (16:27)
--- NOTE | 2019-04-28 17:12 | NUR ---
Patient's Alla and son John at bedside. Updated on patient status and plan of care. All questions answered clearly and education provided.
[2019-04-28] MEDS ORDERED: [UNRECOGNIZED DRUG - OTHER] IV SCH ×10 (18:00)
[2019-04-28] MEDS ORDERED: SODIUM CHLORIDE IV SCH ×10 (18:00)
[2019-04-28] MEDS ORDERED: POTASSIUM ACETATE IV SCH ×10 (18:00)
--- NOTE | 2019-04-28 19:38 | NUR ---
Endorsement Endorsed bedside report to oncoming RN using SBAR approach for continuation of care.
--- NOTE | 2019-04-28 20:00 | NUR ---
OPENS EYES SPON. ORALLY INTUBATED. SUCTIONED WITH MOD AMOUNT OF THICK CLEAR MUCUS OBTAINED. ORAL CARE GIVEN. GT FEEDING WITH VITAL 1.2 AF AT 50CC/HR. RESIDUAL 0. GT FEEDING INCREASED TO 75CC/HR. GRIMALDO CATH PATENT DRAINING. CLEAR EVELIN URINE WITH SEDIMENTS. NETTA MIDLINE DRSG D/I. HEPARIN DRIP AT 1200 UNITS/HR. PPN AT 85CC/HR. SR-ST.
--- NOTE | 2019-04-28 22:00 | NUR ---
SUCTIONED. TURNED. HS CARE DONE.
[2019-04-29] VITALS (32 sets, daily range): BP systolic 95–156
--- NOTE | 2019-04-29 | NUR ---
SUCTIONED. ORAL CARE GIVEN. ACCU-CHEK 347, 10 UNITS REGULAR INSULIN SQ GIVEN. GT FLUSHED WITH 150CC H2O.
[2019-04-29] MEDS: NACL 0.9% 1,000 ML IV SCH ×2 (00:30→00:35)
[2019-04-29] MEDS: METOCLOPRAMIDE HCL 10 MG/2 ML VIAL IVP SCH ×4 (00:31→18:03)
[2019-04-29] MEDS: INSULIN REGULAR, HUMAN 100 UNITS/ML, 10 ML VIAL (humuLIN R) SUBCUT PRN ×4 (00:40→18:08)
[2019-04-29] MEDS: IPRATROPIUM BROM 0.5 MG/2.5 ML VIAL.NEB (ATROVENT) INH SCH ×4 (00:43→19:36)
[2019-04-29] MEDS: LevALBUTEROL HCL 1.25 MG/0.5 ML *CONC.* VIAL.NEB (XOPENEX CONC.) INH SCH ×4 (00:43→19:36)
--- NOTE | 2019-04-29 01:30 | NUR ---
PTT 28.9, HEPARIN 300 UNITS IVP GIVEN PER HEPARIN PROTOCOL. HEPARIN DRIP INCREASED TO 1400 UNITS/HR. PTT AT 0730.
--- NOTE | 2019-04-29 01:30 | NUR ---
HEPARIN DRIP TITRATION PTT 28.9. WITNESSED SEKOU WATSON TITRATE DRIP TO 1400 UNITS/HR PER ORDERS.
--- NOTE | 2019-04-29 02:00 | NUR ---
1 LARGE GELATINOUS BROWN STOOL DEFECATED. CLEANED. CHG BATH GIVEN. COMPLETE LINEN CHANGE. DOES NOT ASSIST WITH TURNING. JV PROC WELL.
--- NOTE | 2019-04-29 04:00 | NUR ---
SUCTIONED. TURNED. ORAL CARE. BOUTS OF RESTLESSNESS, RESPIRATIONS UP.
--- NOTE | 2019-04-29 06:00 | NUR ---
SUCTIONED AND TURNED Q2 HRS AND PRN. UO GOOD. ACCU-CHEK 349, 8 UNITS REGULAR INSULIN SQ GIVEN. GT FLUSHED WITH 150CC H2O. REMAINS IN GUARDED CONDITION.
[2019-04-29 06:55] LABS: CREATININE 1.07 mg/dL (0.55-1.30); POTASSIUM 3.6 mmol/L (3.5-5.1)
[2019-04-29 06:59] LABS: PHOSPHORUS 2.9 mg/dL (2.7-4.5)
--- NOTE | 2019-04-29 07:15 | NUR ---
OPENING NOTE: Received SBAR report and plan of care from night RN
--- NOTE | 2019-04-29 07:45 | NUR ---
RT NOTES PT CONTINUE TO TOLERATE CPAP SETTINGS. NO RESPIRATORY DISTRESS NOTED END TIDAL CO2 35 mmHg WILL DRAW ABG ORDERED Addendum: 04/29/19 at 0814 by Deb Leyva RT Amended: Links added.
[2019-04-29] MEDS: levETIRAcetam 500 MG TABLET GT SCH ×2 (09:17→21:02)
[2019-04-29] MEDS: POLYETHYLENE GLYCOL 3350, 17 GM/ POWD.PACK GT SCH ×2 (09:17→21:00)
[2019-04-29] MEDS: ATORVASTATIN 10 MG TABLET GT SCH (09:17)
[2019-04-29] MEDS: amLODIPine BESYLATE 5 MG TABLET GT SCH (09:18)
[2019-04-29] MEDS: FAMOTIDINE 20 MG TABLET GT SCH (09:18)
[2019-04-29] MEDS: HEPARIN 25,000 UNITS in 250 ML PREMIX IV PRN (09:31)
--- NOTE | 2019-04-29 09:38 | NUR ---
CONSULTATION PAGED/CALLED Reason for Consultation: TRACH CONSULT Person Who was Notified: DR. RICK PERRY'S STUDENT Consulting Physician: DR. SARITA CABRERA Clinical Courier Specialty: SURGICAL Ordering Physician: DR. VALVERDE
--- NOTE | 2019-04-29 10:00 | NUR ---
RT NOTES Found pt. in respiratory distress, diaphoretic, H.R 130 R.R 37 B/P 156/100. Switched vent settings back to AC 14. RN aware. H.R, R.R and B/P improved.
--- NOTE | 2019-04-29 10:11 | NUR ---
SINUS TACH PT DOES NOT APPEAR TO TOLERATE CPAP SETTINGS. RT NOTIFIED AND CHANGED SETTINGS BACK AC
--- NOTE | 2019-04-29 15:09 | NUR ---
DR. CONDON AT BEDSIDE/MD SPOKE TO PT'S CONNECTED MD WITH PT'S (ROSIE) VIA TELEPHONE, OVERHEARD MD DISCUSSING POSSIBILITY OF TRACH PLACEMENT WITH PT'S , DURING WHICH MD EXPLAINED THE EARLIEST THE SURGERY COULD BE SCHEDULED WOULD BE MAY 04, DUE TO PLAVIX.
--- NOTE | 2019-04-29 15:13 | NUR ---
RT NOTES Found pt in respiratory distress, diaphoretic, appears anxious. Son at bedside indicated pt suffers from anxiety. H.R 130 R.R 37. Rn made aware. PRN hhn given.
--- NOTE | 2019-04-29 15:40 | NUR ---
DR. CABRERA CONSULT CANCELLED SPOKE TO DR. RICK MD AWARE DR. CONDON PLANS TO PERFORM SX.
[2019-04-29] MEDS ORDERED: LORazepam 2 MG/ML VIAL IVP PRN (15:45)
[2019-04-29] MEDS ORDERED: POTASSIUM ACETATE IV SCH ×10 (18:00)
[2019-04-29] MEDS ORDERED: SODIUM CHLORIDE IV SCH ×10 (18:00)
[2019-04-29] MEDS ORDERED: [UNRECOGNIZED DRUG - OTHER] IV SCH ×10 (18:00)
--- NOTE | 2019-04-29 19:26 | NUR ---
ENDORSEMENT: Gave bedside SBAR report and endorsed plan of care to night RN
--- NOTE | 2019-04-29 19:45 | NUR ---
PM Assessment Pt in bed asleep. Alert to verbal stimuli. Able to follow some commands. Pt SR/ST shown on the monitor. Vent settings: AC 12, FIO2 30%, TV 500, PEEP 5. Pt saturating in the high 90s. No s/s of distress noted. Pt has NETTA Midline in place, running PPN @ 85 cc/hr, and Heparin drip @ 1400u/hr. Pt has 20g in right foot running 1/2 NS @20cc/hr. Pt IV sites C/D/I. No s/s of infiltration noted. Pt has herring catheter in place, draining yellow urine to gravity. Pt has G-tube in place running Vital AF 1.2 @ 75cc/hr. PT tolerating well, no residual noted. Bed locked in lowest position, safety precautions in place, and call light in reach. Will continue to monitor.
--- NOTE | 2019-04-29 20:10 | NUR ---
Extubation Pt self extubated himself. Pt not desaturating. Placed on mask @6L. Saturating in the mid-high 90s. RR in the mid-high 20s. ABGs to be drawn. Will continue to monitor.
--- NOTE | 2019-04-29 20:45 | NUR ---
ABG RT at bedside drawing ABGs. Pt tolerating Oxygenation well. Will continue to monitor.
--- NOTE | 2019-04-29 23:12 | NUR ---
called Dr. Candelario's exchange for orders. Spoke to Shaye.
--- NOTE | 2019-04-29 23:15 | NUR ---
MD Called Dr. Candelario called and made aware of Pt status post extubation. Orders received. Will carry out as ordered.
[2019-04-30] VITALS (24 sets, daily range): BP systolic 136–164
[2019-04-30] MEDS: METOCLOPRAMIDE HCL 10 MG/2 ML VIAL IVP SCH ×4 (00:16→17:56)
[2019-04-30] MEDS: INSULIN REGULAR, HUMAN 100 UNITS/ML, 10 ML VIAL (humuLIN R) SUBCUT PRN ×4 (00:23→18:03)
[2019-04-30] MEDS: LevALBUTEROL HCL 1.25 MG/0.5 ML *CONC.* VIAL.NEB (XOPENEX CONC.) INH SCH ×4 (00:30→19:56)
[2019-04-30] MEDS: IPRATROPIUM BROM 0.5 MG/2.5 ML VIAL.NEB (ATROVENT) INH SCH ×4 (00:30→19:55)
--- NOTE | 2019-04-30 03:30 | NUR ---
RN Rounds Pt in bed asleep. No s/s of distress noted. Pt tolerating Mask well. Will continue to monitor.
--- NOTE | 2019-04-30 05:00 | NUR ---
RN Rounds Pt in bed asleep. No distress noted. Pt Saturating in the high 90s, and RR in the 20-30s. Pt tolerating well. Will continue to monitor.
[2019-04-30 05:08] LABS: HEMATOCRIT 27.9 % (36-54); MEAN CORPUSCULAR HEMOGLOBIN 26 pg (27-31); MEAN CORPUSCULAR HGB CONC 32 % (32-36); MEAN CORPUSCULAR VOLUME 81 fL (79.0-98.0); PLATELET COUNT (AUTO) 152 K/uL (130-430); RED BLOOD CELL COUNT(AUTO) 3.45 MIL/uL (4.2-6.2); RED CELL DISTRIBUTION WIDTH 18.1 % (9.0-15.0); WHITE BLOOD COUNT (AUTO) 5.6 K/uL (4.8-10.8)
[2019-04-30] MEDS: HEPARIN 25,000 UNITS in 250 ML PREMIX IV PRN (05:24)
[2019-04-30 05:42] LABS: ALBUMIN 1.4 g/dL (3.4-4.8); CREATININE 1.06 mg/dL (0.55-1.30); PHOSPHORUS 2.9 mg/dL (2.7-4.5); POTASSIUM 4.1 mmol/L (3.5-5.1); TOTAL BILIRUBIN 0.4 mg/dL (0.0-1.0)
[2019-04-30 05:44] LABS: ATYPICAL LYMPHOCYTES % 0 % (0-0); BAND % (MANUAL) 1 % (0-6); BASOPHILS % (MANUAL) 0 % (0-2); EOSINOPHILS % (MANUAL) 4 % (0-7); LYMPHOCYTES % (MANUAL) 10 % (20-46); METAMYELOCYTES % 0 % (0-0); MONOCYTES % (MANUAL) 22 % (0-11); MYELOCYTES % 1 % (0-0)
--- NOTE | 2019-04-30 07:16 | NUR ---
Endorsement Report given to oncoming RN via SBAR approach at bedside.
--- NOTE | 2019-04-30 07:19 | NUR ---
AM ASSESSMENT Pt received laying in bed with eyes open. Pt is responding to verbal stimuli and able to respond verbally saying "thank you". Pt has a simple mask on 6L with oxygen saturation of 96% on the in room monitor. Pt is connected to a herring cath draining yellow urine to gravity. No signs of acute distress, will continue to monitor.
[2019-04-30] MEDS: levETIRAcetam 500 MG TABLET GT SCH ×2 (08:50→20:54)
[2019-04-30] MEDS: FAMOTIDINE 20 MG TABLET GT SCH (08:50)
[2019-04-30] MEDS: ATORVASTATIN 10 MG TABLET GT SCH (08:50)
[2019-04-30] MEDS: NACL 0.9% 1,000 ML IV SCH ×2 (08:50→18:33)
[2019-04-30] MEDS: amLODIPine BESYLATE 5 MG TABLET GT SCH (08:51)
[2019-04-30] MEDS: POLYETHYLENE GLYCOL 3350, 17 GM/ POWD.PACK GT SCH ×2 (08:51→20:54)
--- NOTE | 2019-04-30 10:00 | NUR ---
RT NOTES No signs of respiratory distress noted.
[2019-04-30] MEDS ORDERED: FUROSEMIDE 20 MG/2 ML VIAL IVP ONE (10:30)
--- NOTE | 2019-04-30 13:28 | NUR ---
Nutrition F/U RD reviewed pt's current EMR including diet Hx, physician notes, nursing notes, pertinent labs/meds/procedures, care trends, and care activity. Current Diet Order/Nutrition Support: PPN D20% AA8% ar 85 ml/hr via peripheral line -- tapering off Vital AF 1.2 at 75 ml/hr, Free Water Flush: 150ml Q6H via GT x3 days Subjective information: RD received TPN D/C notification 04/30/19 1124. Per RN, PPN is currently being tapered off. TF seen infusing as per physician order at time of RD visit. Per RN, pt has been tolerating TF well, no residuals. Large BM reported from last night's shift. Pt self-extubated last night, currently on Oxymizer. MODIFIED Estimated Energy Expenditure (kcals/day) 9327-5638 kcal/day (30-35 kcal/kg CBW for sepsis) MODIFIED Estimated Protein Required (g/day) 128-170 gm/day (1.5-2 gm/kg CBW for sepsis -- renal labs seemingly improved) MODIFIED Estimated Fluid Required (l/day) 2.6-3 L/day (1 ml/kcal/day for maintenance -- renal labs seemingly improved) Problem/Etiology/Signs/Symptoms Increased nutritional needs related to metabolic demands as evidenced by estimated nutritional requirements for sepsis and critical illness, and no currently infusing nutrition support. *met -- TF at goal rate Expected Outcomes/Goals - Monitor PPN tolerance and EN regimen tolerance and intake w/ goal of pt meeting at least 80-100% of estimated nutritional needs, labs trending WNL, normal GI function, and skin integrity/wt maintenance Dietitian Recommendations * Recommend continuing Vital AF 1.2 at 75ml/hr, Free Water Flush: 150ml Q6H via GT Provides: 2160 kcal/day, 135 gm protein/day, and 2060 ml/free water/anna Meets: 85% of lower end of estimated caloric needs and 105% of lower end of estimated protein needs * Recommend continuing to taper off PPN support Follow Up High Risk: F/U in 2-3 days
--- NOTE | 2019-04-30 13:42 | NUR ---
Dietitian Recommendations * Recommend continuing Vital AF 1.2 at 75ml/hr, Free Water Flush: 150ml Q6H via GT Provides: 2160 kcal/day, 135 gm protein/day, and 2060 ml/free water/day Meets: 85% of lower end of estimated caloric needs and 105% of lower end of estimated protein needs * Recommend continuing to taper off PPN support LP, RD Please refer to Nutrition F/U for details.
--- NOTE | 2019-04-30 15:50 | NUR ---
Family Pt's son is at bedside. Pt is observed to be smiling and communicating with his son.
--- NOTE | 2019-04-30 19:20 | NUR ---
Closing Notes Pt endorsed to night RN using SBAR. Vital signs stable.
--- NOTE | 2019-04-30 19:30 | NUR ---
PM ASSESSMENT Pt in bed w/ eyes open resting comfortably, no signs of acute distress or discomfort noted. Pt able to nod yes or no when asked questions. VSS w/ ST seen on the monitor. Pt on 3L O2 via Oximizer, tolerating well w/ Ot sats @ 96% and even and unlabored breathing. Pt has a NETTA Midline infusing Heparin Drip @ 1400 u/hr and a R foot 20g infusing NS @ 20 cc/hr. Sites c/d/i. Gtube noted infusing Vital AF 1,2 @ 75 cc/hr. C/d/i. Mary cath noted draining urine to gravity. Bed is locked and in lowest position, call light w/in reach, will continue to monitor.
--- NOTE | 2019-04-30 23:00 | NUR ---
CHG Pt had a large loose stool at this time. Romi-care performed and full CHG bath given to pt at this time. Pt tolerated well, will continue to monitor.
[2019-05-01] VITALS (18 sets, daily range): BP systolic 122–165
[2019-05-01] MEDS: METOCLOPRAMIDE HCL 10 MG/2 ML VIAL IVP SCH ×5 (00:18→23:24)
[2019-05-01] MEDS: INSULIN REGULAR, HUMAN 100 UNITS/ML, 10 ML VIAL (humuLIN R) SUBCUT PRN ×5 (00:21→23:32)
[2019-05-01] MEDS: ACETAMINOPHEN 650 MG/20.3 ML UDC GT PRN ×2 (00:22→11:15)
--- NOTE | 2019-05-01 00:30 | NUR ---
Pt in bed w/ eyes closed resting comfortably, no signs of acute distress or discomfort noted. Will continue to monitor pt.
[2019-05-01] MEDS: IPRATROPIUM BROM 0.5 MG/2.5 ML VIAL.NEB (ATROVENT) INH SCH ×4 (01:23→20:32)
[2019-05-01] MEDS: LevALBUTEROL HCL 1.25 MG/0.5 ML *CONC.* VIAL.NEB (XOPENEX CONC.) INH SCH ×4 (01:23→20:32)
[2019-05-01] MEDS: HEPARIN 25,000 UNITS in 250 ML PREMIX IV PRN ×2 (01:59→18:08)
--- NOTE | 2019-05-01 03:40 | NUR ---
Pt in bed w/ eyes closed resting comfortably. No signs of acute distress or discomfort noted. Pt still on 3L va Oximizer, tolerating well w/ O2 sats @ 93% and even and unlabored breathing. Will continue to monitor pt.
[2019-05-01 05:24] LABS: BASOPHILS % (AUTO) 0.3 % (0.0-2.0); EOSINOPHILS # (AUTO) 0.1 K/uL (0.0-0.4); EOSINOPHILS % (AUTO) 1.5 % (0.0-4.0); HEMATOCRIT 27.8 % (36-54); LYMPHOCYTES # (AUTO) 1.1 K/uL (1.0-5.5); LYMPHOCYTES % (AUTO) 18.7 % (20.5-51.5); MEAN CORPUSCULAR HEMOGLOBIN 26 pg (27-31); MEAN CORPUSCULAR HGB CONC 32 % (32-36); MEAN CORPUSCULAR VOLUME 80 fL (79.0-98.0); MONOCYTES # (AUTO) 1.6 K/uL (0.0-1.0); MONOCYTES % (AUTO) 28.5 % (1.7-9.3); NEUTROPHILS # (AUTO) 2.9 K/uL (1.8-7.7); PLATELET COUNT (AUTO) 191 K/uL (130-430); RED BLOOD CELL COUNT(AUTO) 3.46 MIL/uL (4.2-6.2); RED CELL DISTRIBUTION WIDTH 18.5 % (9.0-15.0); WHITE BLOOD COUNT (AUTO) 5.7 K/uL (4.8-10.8)
[2019-05-01 05:52] LABS: ALBUMIN 1.6 g/dL (3.4-4.8); CALCIUM 8.5 mg/dL (8.4-11.0); CREATININE 0.96 mg/dL (0.55-1.30); POTASSIUM 3.3 mmol/L (3.5-5.1); TOTAL BILIRUBIN 0.6 mg/dL (0.0-1.0)
--- NOTE | 2019-05-01 06:10 | NUR ---
Pt had another large loose stool at this time. Pericare performed and pt repositioned. Pt tolerated well, will continue to monitor.
--- NOTE | 2019-05-01 07:15 | NUR ---
OPENING NOTE Patient resting in the bed comfortable. No acute distress. Respiration even and unlabored noted. O2 sat=94%at this time in RA. Skin warm and dry to touch. Midline intact to NETTA, no redness, no swelling, covered with clean and dry transparent dressing. On Heparin drip at 1400units/hr, infusing well. IV intact to right foot, no redness, no swelling, no drainage. On NS at 20ml/hr, infusing well. GT intact, patent, on Vital AF 1.2 at 75ml.hr, tolerated well. HOB elevated. F/C intact, drain gravity. Safety measure maintained. Call light within reached. Bed in low position, padded side rails up. Will continue to monitor.
[2019-05-01] MEDS: amLODIPine BESYLATE 5 MG TABLET GT SCH (08:37)
[2019-05-01] MEDS: ATORVASTATIN 10 MG TABLET GT SCH (08:37)
[2019-05-01] MEDS: FAMOTIDINE 20 MG TABLET GT SCH (08:37)
[2019-05-01] MEDS: levETIRAcetam 500 MG TABLET GT SCH ×2 (08:37→21:12)
[2019-05-01] MEDS: POLYETHYLENE GLYCOL 3350, 17 GM/ POWD.PACK GT SCH ×2 (08:38→21:00)
--- NOTE | 2019-05-01 09:20 | NUR ---
SEEN AND EXAMINED BY ERIC ELIAS.
--- NOTE | 2019-05-01 09:25 | NUR ---
SEEN AND EXAMINED BY JONATHAN ESCOBAR WITH ORDER RECEIVED.
[2019-05-01] MEDS ORDERED: POTASSIUM CHLORIDE 20 MEQ/PKT PACKET GT ONE (09:30)
--- NOTE | 2019-05-01 09:30 | NUR ---
DOWN GRADE TO TELEMETRY Continue care in ICU until telemetry nurse available.
[2019-05-01] MEDS ORDERED: FUROSEMIDE 20 MG/2 ML VIAL IVP ONE (10:45)
--- NOTE | 2019-05-01 10:45 | NUR ---
SEEN AND EXAMINED BY DEXTER MOTTA WITH ORDER RECEIVED.
--- NOTE | 2019-05-01 11:17 | NUR ---
BCBM=988.0 Patient resting in the bed. No acute distress. Skin warn and dry to touch. Zeri=215.0, Tylenol 650 mg via GT given as ordered. Cooling measure maintained. Safety measure maintained. Call light within reached. Continue to monitor.
--- NOTE | 2019-05-01 12:20 | NUR ---
RECHECK TEMP=99.9 Patient resting in the bed. No acute distress. Respiration even and unlabored. O2 sat=92% RA. F/C intact, drain gravity. Midline intact, Heparin drip infusing well. IV intact, IVF infusing well. Safety measure maintained. Call light within reached. Continue to monitor.
--- NOTE | 2019-05-01 14:00 | NUR ---
ROUND Patient resting in the bed. No acute distress. Respiration even and unlabored. Continue on GT feeding. HOB elevated. Midline line intact, Heparin drip infusing well. IV intact, IVF infusing well. F/C intact, drain gravity. Safety measure maintained. Bed locked in low position, padded side rails up. Call light within reached. Continue to monitor.
--- NOTE | 2019-05-01 15:15 | NUR ---
TRANSFERRED TO 133B Patient transferred to telemetry with 2 RN and heart monitor via bed in stable condition. Continue the care in telemetry.
--- NOTE | 2019-05-01 16:40 | NUR ---
ROUND Patient resting in the bed. No acute distress. Respiration even and unlabored. Continue on GT feeding. HOB elevated. Midline line intact, Heparin drip infusing well. IV intact, IVF infusing well. F/C intact, drain gravity. Son at bedside. Safety measure maintained. Bed locked in low position, padded side rails up. Call light within reached. Continue to monitor.
--- NOTE | 2019-05-01 18:13 | NUR ---
NEW HEPARIN BAG HANG A new Heparin bag hang, witness with Leonid. On Heparin drip at 1400 units/hr. connect to Midline on NETTA, intact, no redness, no swelling, no drainage. IV intact to right foot, no redness, no swelling, On NS at 20ml/hr, infusing well. Safety measure maintained. Call light within reached. Bed locked in low position, side rails up, bed alarm on. Continue to monitor.
--- NOTE | 2019-05-01 18:40 | NUR ---
CLOSING NOTE Patient resting in the bed comfortable. No acute distress. Respiration even and unlabored noted. O2 sat=93% at this time in RA. Skin warm and dry to touch. Midline intact to NETTA, no redness, no swelling, covered with clean and dry transparent dressing. Continue on Heparin drip at 1400units/hr, infusing well. IV intact to right foot, no redness, no swelling, no drainage. On NS at 20ml/hr, infusing well. GT intact, patent, on Vital AF 1.2 at 75ml.hr, tolerated well. HOB elevated. F/C intact, drain gravity. All needs met. No seizure activity noted during shift. Safety measure maintained. Call light within reached. Bed in low position, padded side rails up. Will endorse to night nurse.
--- NOTE | 2019-05-01 19:35 | NUR ---
OPENING NOTE RECEIVED ENDORSEMENT REPORT FROM DAY NURSE ESPINOZA AT BEDSIDE. PT IS NONVERBAL. NO SOB NOTED. NO DISTRESS NOTED. CHEST RISE EVEN AND UNLABORED. NO S/S OF PAIN NOTED. IV CLEAN, DRY, PATENT AND INTACT. MIDLINE CLEAN DRY AND INTACT. IVF INFUSING WELL. TUBE FEEDING INFUSING AT ORDERED RATE. GRIMALDO CATHETER EMPTYING TO GRAVITY. ORIENTED PT TO HOSPITAL ROOM AND HOW TO USE ROOM PHONE AND CALL LIGHT TO CALL FOR ASSISTANCE. PT UNABLE TO VERBALIZE UNDERSTANDING. SEIZURE PRECAUTIONS IN PLACE. SAFETY MEASURES IN PLACE. CALL LIGHT/ROOM PHONE WITHIN REACH, BED ALARM ON, BED WHEELS LOCKED, BED IN LOWEST POSITION, BED WHEELS LOCKED, SIDE RAILS UP X3, BEDSIDE TABLE WITHIN REACH. NO OTHER NEEDS AT THIS TIME. WILL CONTINUE TO MONITOR PT AND CONTINUE PT'S POC.
--- NOTE | 2019-05-01 20:35 | NUR ---
RN ROUNDS PT RESTING IN BED. NO SOB NOTED. NO DISTRESS NOTED. CHEST RISE EVEN AND UNLABORED. NO S/S OF PAIN NOTED. VITAL SIGNS WNL. IVF INFUSING WELL. TUBE FEEDING INFUSING AT ORDERED RATE. GRIMALDO CATHETER EMPTYING TO GRAVITY. SEIZURE PRECAUTIONS IN PLACE. SAFETY MEASURES IN PLACE. NO OTHER NEEDS AT THIS TIME. WILL CONTINUE TO MONITOR PT AND CONTINUE PT'S POC.
--- NOTE | 2019-05-01 21:20 | NUR ---
RN ROUNDS PT RESTING IN BED. NO SOB NOTED. NO DISTRESS NOTED. CHEST RISE EVEN AND UNLABORED. NO S/S OF PAIN NOTED. VITAL SIGNS WNL. IVF INFUSING WELL. SCHDEULED MEDICATION ADMINISTERED ORDERED. TUBE FEEDING INFUSING AT ORDERED RATE. GRIMALDO CATHETER EMPTYING TO GRAVITY. SEIZURE PRECAUTIONS IN PLACE. SAFETY MEASURES IN PLACE. NO OTHER NEEDS AT THIS TIME. WILL CONTINUE TO MONITOR PT AND CONTINUE PT'S POC.
--- NOTE | 2019-05-01 22:45 | NUR ---
RN ROUNDS PT RESTING IN BED. NO SOB NOTED. NO DISTRESS NOTED. CHEST RISE EVEN AND UNLABORED. NO S/S OF PAIN NOTED. IVF INFUSING WELL. TUBE FEEDING INFUSING AT ORDERED RATE. GRIMALDO CATHETER EMPTYING TO GRAVITY. SEIZURE PRECAUTIONS IN PLACE. SAFETY MEASURES IN PLACE. NO OTHER NEEDS AT THIS TIME. WILL CONTINUE TO MONITOR PT AND CONTINUE PT'S POC.
--- NOTE | 2019-05-02 00:45 | NUR ---
RN ROUNDS PT RESTING IN BED. NO SOB NOTED. NO DISTRESS NOTED. CHEST RISE EVEN AND UNLABORED. NO S/S OF PAIN NOTED. VITAL SIGNS WNL. IVF INFUSING WELL. BS 329 8 UN REGULAR INSULIN ADMINISTERED PER SLIDING SCALE PROTOCOL. PT TOLERATED WELL. TUBE FEEDING INFUSING AT ORDERED RATE. GRIMALDO CATHETER EMPTYING TO GRAVITY. SEIZURE PRECAUTIONS IN PLACE. SAFETY MEASURES IN PLACE. NO OTHER NEEDS AT THIS TIME. WILL CONTINUE TO MONITOR PT AND CONTINUE PT'S POC.
[2019-05-02 01:03] VITALS: BP_SYST 149
[2019-05-02] MEDS: NACL 0.9% 1,000 ML IV SCH ×2 (01:55→23:22)
--- NOTE | 2019-05-02 02:10 | NUR ---
RN ROUNDS PT RESTING IN BED WITH EYES CLOSED. NO SOB NOTED. NO DISTRESS NOTED. CHEST RISE EVEN AND UNLABORED. NO S/S OF PAIN NOTED. IVF INFUSING WELL. TUBE FEEDING INFUSING AT ORDERED RATE. GRIMALDO CATHETER EMPTYING TO GRAVITY. SEIZURE PRECAUTIONS IN PLACE. SAFETY MEASURES IN PLACE. NO NEEDS AT THIS TIME. WILL CONTINUE TO MONITOR PT AND CONTINUE PT'S POC.
[2019-05-02] MEDS: METOCLOPRAMIDE HCL 10 MG/2 ML VIAL IVP SCH ×4 (06:05→23:23)
[2019-05-02] MEDS: INSULIN REGULAR, HUMAN 100 UNITS/ML, 10 ML VIAL (humuLIN R) SUBCUT PRN ×4 (06:12→23:27)
--- NOTE | 2019-05-02 06:20 | NUR ---
BS 329, 8 UN OF REGULAR INSULIN ADMINISTERED PER SLIDING SCALE PROTOCOL. PT TOLERATED WELL. SAFETY MEASURES IN PLACE. WILL CONTINUE TO MONITOR PT.
[2019-05-02 06:22] LABS: MEAN CORPUSCULAR HEMOGLOBIN 26 pg (27-31); MEAN CORPUSCULAR HGB CONC 32 % (32-36); MEAN CORPUSCULAR VOLUME 81 fL (79.0-98.0); PLATELET COUNT (AUTO) 206 K/uL (130-430); RED BLOOD CELL COUNT(AUTO) 3.44 MIL/uL (4.2-6.2); RED CELL DISTRIBUTION WIDTH 19.6 % (9.0-15.0)
--- NOTE | 2019-05-02 06:33 | NUR ---
CLOSING NOTE PT RESTING IN BED. NO SOB NOTED. NO DISTRESS NOTED. CHEST RISE EVEN AND UNLABORED. NO S/S OF PAIN NOTED. PT DENIED PAIN THROUGHOUT SHIFT. ALL NEEDS MET THROUGHOUT SHIFT. ALL SCHEDULED MEDICATIONS ADMINISTERED ORDERED. SAFETY MEASURES IN PLACE THROUGHOUT SHIFT. CALL LIGHT/ROOM PHONE WITHIN REACH, BED ALARM ON, BED WHEELS LOCKED, BED IN LOWEST POSITION, BED WHEELS LOCKED, SIDE RAILS UP X2, BEDSIDE TABLE WITHIN REACH. NO NEEDS AT THIS TIME. WILL ENDORSE PT CARE TO DAY NURSE.
[2019-05-02 06:46] LABS: CALCIUM 8.7 mg/dL (8.4-11.0)
[2019-05-02] MEDS: IPRATROPIUM BROM 0.5 MG/2.5 ML VIAL.NEB (ATROVENT) INH SCH ×3 (07:15→19:35)
[2019-05-02] MEDS: LevALBUTEROL HCL 1.25 MG/0.5 ML *CONC.* VIAL.NEB (XOPENEX CONC.) INH SCH ×3 (07:16→19:35)
[2019-05-02 07:17] VITALS: BP_SYST 149
--- NOTE | 2019-05-02 07:48 | NUR ---
Opening Note Report received from [facility] shift nurse. Patient is awake, is able to verbalize some words, however, is bed bound. Seizure and aspiration precautions are in place. RUE midline is in place running Heparin @14 u/hr. IV is on the right foot 20g running NS@20. G-tube is in place running Vital 1/2@75. Mary cath is in place draining cloudy, yellow urine. Bed is locked and in the lowest position. Will continue to monitor.
[2019-05-02 07:55] LABS: BASOPHILS % (MANUAL) 0 % (0-2); EOSINOPHILS % (MANUAL) 3 % (0-7); LYMPHOCYTES % (MANUAL) 26 % (20-46); MONOCYTES % (MANUAL) 9 % (0-11)
--- NOTE | 2019-05-02 07:56 | NUR ---
Heparin Protocol Current PTT is 54.7. No action required per protocol. Will keep heparin drip @ 14u/h, 1400ml. Will recheck PTT in the am 05/03/19.
[2019-05-02 08:00] VITALS: BP_SYST 153
--- NOTE | 2019-05-02 08:42 | NUR ---
MD Rounds Dr. Doran is examining the patient at the bedside. MD schaefer'd Heparin drip and started the patient on Xeralto.
[2019-05-02] MEDS: FAMOTIDINE 20 MG TABLET GT SCH (09:20)
[2019-05-02] MEDS: ATORVASTATIN 10 MG TABLET GT SCH (09:20)
[2019-05-02] MEDS: levETIRAcetam 500 MG TABLET GT SCH ×2 (09:20→20:46)
[2019-05-02] MEDS: amLODIPine BESYLATE 5 MG TABLET GT SCH (09:21)
[2019-05-02] MEDS: POLYETHYLENE GLYCOL 3350, 17 GM/ POWD.PACK GT SCH ×2 (09:21→20:46)
--- NOTE | 2019-05-02 10:34 | NUR ---
Rounds Patient was cleaned and turned , tolerated well.
[2019-05-02] MEDS ORDERED: FUROSEMIDE 20 MG/2 ML VIAL IVP ONE (11:00)
[2019-05-02 12:00] VITALS: BP_SYST 144
--- NOTE | 2019-05-02 12:31 | NUR ---
Rounds Flushed G-tube with 150ml H2o per MD order. 5ml of residuals obtained at this time.
--- NOTE | 2019-05-02 14:47 | NUR ---
Rounds Patient was cleaned, turned, and suctioned. Tolerated well.
--- NOTE | 2019-05-02 15:00 | NUR ---
NASAL AND ORAL SXN TO PT PER RN REQUEST. NO DISTRESS NOTED. Addendum: 05/02/19 at 1604 by Miri Wilson RT Amended: Links added.
--- NOTE | 2019-05-02 15:00 | NUR ---
NASAL AND ORAL SXN PT REQUESTED BY RN
--- NOTE | 2019-05-02 15:43 | NUR ---
Nutrition F/U RD reviewed pt's current EMR including diet Hx, physician notes, nursing notes, pertinent labs/meds/procedures, care trends, and care activity. Current Diet Order/Nutrition Support: Vital AF 1.2 at 75 ml/hr, Free Water Flush: 150ml Q6H via GT x5 days Subjective information: Pt seen resting in bed w/ family members and primary RN at bedside providing care. RN reported that pt has been tolerating TF well, no residuals. BM noted yestered. MODIFIED Estimated Energy Expenditure (kcals/day) -- based off of CBW: 187 lb/85 kg 0256-3205 kcal/day (25-30 kcal/kg CBW for maintenance -- sepsis resolved per physician notes) MODIFIED Estimated Protein Required (g/day) 68-128 gm/day (0.8-1.5 gm/kg CBW d/t acute state) MODIFIED Estimated Fluid Required (l/day) 2-2.6 L/day (1 ml/kcal/day for maintenance) Problem/Etiology/Signs/Symptoms Increased nutritional needs related to metabolic demands as evidenced by estimated nutritional requirements for sepsis and critical illness, and no currently infusing nutrition support. *met -- TF at goal rate Expected Outcomes/Goals - Monitor PPN tolerance and EN regimen tolerance and intake w/ goal of pt meeting at least 80-100% of estimated nutritional needs, labs trending WNL, normal GI function, and skin integrity/wt maintenance Dietitian Recommendations * Recommend continuing Vital AF 1.2 at 75 ml/hr, Free Water Flush: 150ml Q6H via GT Provides: 2160 kcal/day, 135 gm protein/day, and 2060 ml free water/day Meets: 102% of lower end of estimated caloric needs and 105% of upper end of estimated protein needs Follow Up Moderate Risk: F/U in 3-5 days
--- NOTE | 2019-05-02 15:51 | NUR ---
Dietitian Recommendations * Recommend continuing Vital AF 1.2 at 75 ml/hr, Free Water Flush: 150ml Q6H via GT Provides: 2160 kcal/day, 135 gm protein/day, and 2060 ml free water/day Meets: 102% of lower end of estimated caloric needs and 105% of upper end of estimated protein needs LP, RD Please refer to Nutrition F/U for details.
[2019-05-02 17:15] VITALS: BP_SYST 134
[2019-05-02] MEDS: RIVAROXABAN 15 MG TABLET PO SCH (17:51)
--- NOTE | 2019-05-02 18:58 | NUR ---
Closing Note patient has remained stable throughout the shift. Started patient on Xeralto this pm. Mary cath, G-tube, RUE midline remain in place. Will endorse care to the oncoming nurse.
--- NOTE | 2019-05-02 19:25 | NUR ---
OPENING NOTE RECEIVED CARE OF PT. PT IS AWAKE IN BED WITH ASPIRATION PRECAUTIONS IN PLACE. SEIZURE PADS ARE ALSO IN PLACE. RUE MIDLINE IS RUNNING NS @ 20 CC/HR. G-TUBE IS IN PLACE AND IS RUNNING VITAL 1.2 AT 75 CC/HR. GRIMALDO CATHETER IS INTACT AND DRAINING WELL TO GRAVITY, WITH YELLOW CLOUDY URINE OUTPUT. PT BREATHING IS UNLABORED TO ROOM AIR, NO SOB NOTED. SAFETY PRECAUTIONS ARE IN PLACE: BED IS LOCKED IN LOWEST POSITION, CALL LIGHT IS WITH PT, SIDE RAILS UP X3, BED ALARM ON, CLOSE TO NURSES STATION. WILL MONITOR.
[2019-05-02 20:00] VITALS: BP_SYST 142
--- NOTE | 2019-05-02 20:46 | NUR ---
SCHEDULED MEDICATION PASS PT GIVEN SCHEDULED KEPPRA AND MIRALAX VIA GTUBE. GTUBE HAD 0 RESIDUAL AND IS INTACT AND FLUSHING WELL. PT TOLERATED WELL. NO S/S OF ACUTE DISTRESS. SAFETY, SEIZURE, ASPIRATION, AND PRESSURE PRECAUTIONS ARE IN PLACE. WILL MONITOR.
--- NOTE | 2019-05-02 23:27 | NUR ---
ACCUCHECK/CRITICAL HIGH BLOOD SUGAR OF 408. 12 UNITS OF REGULAR INSULIN ADMINISTERED PER SLIDING SCALE.
--- NOTE | 2019-05-02 23:48 | NUR ---
PAGED DR. AG PAGED TO REPORT CRITICAL LAB. SPOKE TO MICHELET FROM EXCHANGE.
[2019-05-03] VITALS: BP_SYST 133
--- NOTE | 2019-05-03 00:17 | NUR ---
PAGED Second Page for Dr. Doran Regarding critical labs Spoke with Alberto
--- NOTE | 2019-05-03 00:38 | NUR ---
PAGED Third Page for Dr. Doran Regarding critical labs Spoke with Rose
--- NOTE | 2019-05-03 00:44 | NUR ---
SPOKE TO DR. AG REGARDING PT'S CRITICAL HIGH BLOOD SUGAR OF 408. REPORTED TO MD THAT 12 UNITS OF REGULAR INSULIN WAS GIVEN AND BLOOD SUGAR WAS RECHECKED 15 MINUTES LATER AND WAS 391. RECEIVED ORDERS FROM DR. AG TO GIVE PT ADDITIONAL 12 UNITS OF REGULAR INSULIN AND TO CHECK THE PT'S BLOOD SUGAR IN TWO HOURS FROM ADMINISTRATION OF THE INSULIN. WILL CARRY OUT.
[2019-05-03] MEDS ORDERED: INSULIN REGULAR, HUMAN 100 UNITS/ML, 10 ML VIAL SUBCUT SCH (01:00)
[2019-05-03] MEDS: IPRATROPIUM BROM 0.5 MG/2.5 ML VIAL.NEB (ATROVENT) INH SCH ×4 (01:02→19:25)
[2019-05-03] MEDS: LevALBUTEROL HCL 1.25 MG/0.5 ML *CONC.* VIAL.NEB (XOPENEX CONC.) INH SCH ×4 (01:02→19:25)
--- NOTE | 2019-05-03 01:07 | NUR ---
REGULAR INSULIN GIVEN 12 UNITS OF REGULAR INSULIN ADMINISTERED ORDERED. BLOOD SUGAR 368 PRIOR TO ADMINISTRATION. PT TOLERATED WELL. WILL RECHECK BLOOD SUGAR IN TWO HOURS ORDERED.
--- NOTE | 2019-05-03 03:20 | NUR ---
BLOOD SUGAR CHECK BLOOD SUGAR OF 251. NO INSULIN COVERAGE ORDERED AT THIS TIME. WILL MONITOR.
--- NOTE | 2019-05-03 04:00 | NUR ---
CENTRAL LINE DRESSING CHANGE USING STERILE TECHNIQUE. PT TOLERATED WELL.
--- NOTE | 2019-05-03 05:00 | NUR ---
CLEANED/REPOSITIONED INCONTINENCE CARE RENDERED. PT REPOSITIONED USING PILLOW SUPPORT. PT TOLERATED WELL.
[2019-05-03] MEDS: METOCLOPRAMIDE HCL 10 MG/2 ML VIAL IVP SCH ×4 (05:46→23:11)
[2019-05-03] MEDS: INSULIN REGULAR, HUMAN 100 UNITS/ML, 10 ML VIAL (humuLIN R) SUBCUT PRN ×4 (05:54→23:13)
--- NOTE | 2019-05-03 05:54 | NUR ---
ACCUCHECK BLOOD SUGAR OF 277, 6 UNITS OF REGULAR INSULIN GIVEN PER SLIDING SCALE.
--- NOTE | 2019-05-03 06:36 | NUR ---
CLOSING NOTE PT RESTING IN BED, NO S/S OF ACUTE DISTRESS, BREATHING IS UNLABORED TO ROOM AIR. GTUBE IS PATENT AND TUBE FEEDING IS RUNNING AT ORDERED RATE. IVF ARE INFUSING VIA RUE MIDLINE. GRIMALDO CATHETER IS INTACT AND DRAINING TO GRAVITY. ALL NEEDS MET DURING SHIFT. SAFETY, ASPIRATION, PRESSURE, AND SEIZURE PRECAUTIONS ARE IN PLACE. WILL CONTINUE TO MONITOR UNTIL CARE PT CARE IS ENDORSED TO DAY SHIFT RN.
[2019-05-03 06:43] LABS: BASOPHILS % (AUTO) 0.4 % (0.0-2.0); EOSINOPHILS # (AUTO) 0.1 K/uL (0.0-0.4); EOSINOPHILS % (AUTO) 2.5 % (0.0-4.0); HEMATOCRIT 29.2 % (36-54); HEMOGLOBIN 9.4 g/dL (14.0-18.0); LYMPHOCYTES # (AUTO) 0.7 K/uL (1.0-5.5); LYMPHOCYTES % (AUTO) 18.8 % (20.5-51.5); MEAN CORPUSCULAR HEMOGLOBIN 26 pg (27-31); MEAN CORPUSCULAR HGB CONC 32 % (32-36); MEAN CORPUSCULAR VOLUME 82 fL (79.0-98.0); MONOCYTES # (AUTO) 0.9 K/uL (0.0-1.0); MONOCYTES % (AUTO) 22.4 % (1.7-9.3); NEUTROPHILS # (AUTO) 2.1 K/uL (1.8-7.7); NEUTROPHILS % (AUTO) 55.9 % (40.0-70.0); PLATELET COUNT (AUTO) 235 K/uL (130-430); RED BLOOD CELL COUNT(AUTO) 3.58 MIL/uL (4.2-6.2); RED CELL DISTRIBUTION WIDTH 19.9 % (9.0-15.0); WHITE BLOOD COUNT (AUTO) 3.8 K/uL (4.8-10.8)
[2019-05-03 06:48] LABS: ALBUMIN 1.7 g/dL (3.4-4.8); CREATININE 1.13 mg/dL (0.55-1.30); POTASSIUM 3.8 mmol/L (3.5-5.1); TOTAL BILIRUBIN 0.5 mg/dL (0.0-1.0)
[2019-05-03 08:00] VITALS: BP_SYST 132
--- NOTE | 2019-05-03 09:04 | NUR ---
ATTENDING MD LOOPING INSPECTOR DR AG WAS CALLED DIRECTLY RE: CHANGE OF GTUBE FEEDING, PT HAS HIGH BS.
[2019-05-03] MEDS: ATORVASTATIN 10 MG TABLET GT SCH (09:30)
[2019-05-03] MEDS: levETIRAcetam 500 MG TABLET GT SCH ×2 (09:30→20:24)
[2019-05-03] MEDS: FAMOTIDINE 20 MG TABLET GT SCH (09:31)
[2019-05-03] MEDS: POLYETHYLENE GLYCOL 3350, 17 GM/ POWD.PACK GT SCH ×2 (09:31→20:24)
[2019-05-03] MEDS: amLODIPine BESYLATE 5 MG TABLET GT SCH (09:31)
[2019-05-03 12:46] VITALS: BP_SYST 141
[2019-05-03 16:18] VITALS: BP_SYST 129
[2019-05-03] MEDS: RIVAROXABAN 15 MG TABLET PO SCH (18:07)
--- NOTE | 2019-05-03 19:35 | NUR ---
OPENING NOTE RECEIVED CARE OF PT. PT IS AWAKE IN BED, SITTING IN HIGH HENNESSY'S POSITION WITH ASPIRATION PRECAUTIONS IN PLACE. SEIZURE PADS ARE IN PLACE. RUE MIDLINE IS RUNNING NS @ 20 CC/HR. G-TUBE IS IN PLACE AND IS RUNNING GLUCERNA AT ORDERED RATE. GRIMALDO CATHETER IS INTACT AND DRAINING WELL TO GRAVITY, WITH YELLOW CLOUDY URINE OUTPUT. PT BREATHING IS UNLABORED TO ROOM AIR, NO SOB NOTED. SAFETY PRECAUTIONS ARE IN PLACE: BED IS LOCKED IN LOWEST POSITION, CALL LIGHT IS WITH PT, SIDE RAILS UP X3, BED ALARM ON, CLOSE TO NURSES STATION. WILL MONITOR.
[2019-05-03 20:00] VITALS: BP_SYST 124
--- NOTE | 2019-05-03 20:24 | NUR ---
MED PASS PT GIVEN SCHEDULED KEPPRA AND MIRALAX VIA G-TUBE. NO RESIDUAL NOTED FROM G-TUBE AND GTUBE IS PATENT AND INTACT. PT TOLERATED WELL. MEDICATIONS EXPLAINED TO PT. PT SHOWS NO S/S OF ACUTE DISTRESS. SAFETY, SEIZURE, ASPIRATION, AND PRESSURE PRECAUTIONS REMAIN IN PLACE. WILL MONITOR.
--- NOTE | 2019-05-03 22:45 | NUR ---
INCONTINENCE CARE/REPOSITIONED INCONTINENCE CARE RENDERED WITH ASSISTANCE FROM BERENICE PAZ. PT REPOSITIONED USING PILLOW SUPPORT. PT TOLERATED WELL. SAFETY, ASPIRATION, PRESSURE, AND SEIZURE PRECAUTIONS MAINTAINED. WILL MONITOR.
--- NOTE | 2019-05-03 23:13 | NUR ---
ACCUCHECK BLOOD SUGAR OF 312. 8 UNITS OF REGULAR INSULIN GIVEN PER SLIDING SCALE.
[2019-05-04] VITALS: BP_SYST 129
[2019-05-04] MEDS: LevALBUTEROL HCL 1.25 MG/0.5 ML *CONC.* VIAL.NEB (XOPENEX CONC.) INH SCH ×3 (00:30→13:12)
[2019-05-04] MEDS: IPRATROPIUM BROM 0.5 MG/2.5 ML VIAL.NEB (ATROVENT) INH SCH ×3 (00:30→13:12)
--- NOTE | 2019-05-04 01:47 | NUR ---
ROUNDS: PT RESTING IN BED WITH EYES CLOSED. BREATHING IS EVEN AND EFFORTLESS TO ROOM AIR WITH VISIBLE RISE AND FALL OF CHEST BILATERALLY. NO S/S OF ACUTE DISTRESS, PT APPEARS COMFORTABLE AT THIS TIME. SAFETY MAINTAINED. WILL MONITOR.
[2019-05-04] MEDS: NACL 0.9% 1,000 ML IV SCH (02:20)
--- NOTE | 2019-05-04 03:38 | NUR ---
SLEEPING PT RESTING IN BED WITH EYES CLOSED. VISIBLE SYMMETRICAL RISE AND FALL OF CHEST TO ROOM AIR. TUBE FEEDING IS RUNNING ORDERED. IVF INFUSING AT 20 CC/HR. PT SEEMS COMFORTABLE, NO SIGNS OF PAIN NOTED AT THIS TIME. SAFETY PRECAUTIONS MAINTAINED. WILL MONITOR.
[2019-05-04] MEDS: INSULIN REGULAR, HUMAN 100 UNITS/ML, 10 ML VIAL (humuLIN R) SUBCUT PRN ×2 (05:23→12:05)
[2019-05-04] MEDS: METOCLOPRAMIDE HCL 10 MG/2 ML VIAL IVP SCH ×2 (05:23→12:03)
--- NOTE | 2019-05-04 05:26 | NUR ---
ACCUCHECK BLOOD SUGAR 321. 8 UNITS OF REGULAR INSULIN GIVEN PER SLIDING SCALE.
--- NOTE | 2019-05-04 06:17 | NUR ---
CLOSING NOTE PT RESTING IN BED WITH EYES CLOSED. VISIBLE SYMMETRICAL RISE AND FALL OF CHEST TO ROOM AIR. IVF INFUSING AT 20 CC/HR TO UPPER RIGHT EXTREMITY MIDLINE. TUBE FEEDING RUNNING AT ORDERED RATE. SAFETY PRECAUTIONS IN PLACE. ALL NEEDS MET DURING SHIFT. WILL CONTINUE TO MONITOR UNTIL PT CARE IS ENDORSED TO DAY SHIFT RN.
[2019-05-04 07:45] VITALS: BP_SYST 140
--- NOTE | 2019-05-04 07:45 | NUR ---
OPENING NOTE Patient resting in the bed. No acute distress. Respiration even and unlabored. O2 sat 94% RA in this time. Skin warm and dry to touch. Midline intact to NETTA, no redness, no swelling, no drainage. On NS at 20ml/hr. infusing well. F/C intact, drain gravity with yellow urine, sediment noted. Safety measure maintained. Bed locked in low position, padded side rails up, bed alarm on. Call light within reached. will continue to monitor.
[2019-05-04] MEDS ORDERED: INSULIN GLARGINE 100 UNITS/ML 10 ML VIAL SUBCUT SCH (09:00)
[2019-05-04] MEDS: POLYETHYLENE GLYCOL 3350, 17 GM/ POWD.PACK GT SCH (09:00)
[2019-05-04] MEDS: FAMOTIDINE 20 MG TABLET GT SCH (09:40)
[2019-05-04] MEDS: levETIRAcetam 500 MG TABLET GT SCH (09:40)
[2019-05-04] MEDS: ATORVASTATIN 10 MG TABLET GT SCH (09:40)
[2019-05-04] MEDS: amLODIPine BESYLATE 5 MG TABLET GT SCH (09:42)
--- NOTE | 2019-05-04 10:05 | NUR ---
SEEN AND EXAMINED BY JONATHAN ESCOBAR WITH ORDER RECEIVED.
--- NOTE | 2019-05-04 10:20 | NUR ---
SEEN AND EXAMINED BY MATT ROMANO.
--- NOTE | 2019-05-04 10:55 | NUR ---
SEEN AND EXAMINED BY DEXTER MOTTA Per Dr. Monroe, patient is okay to discharge from pulmonary standpoint.
--- NOTE | 2019-05-04 11:42 | NUR ---
SNF Availability: [facility] - Room [address]B [address] [place] [address] Medic 1 ambulance will car pick up driver at 2:30pm Nurse Sissy bates aware. Ladonna Wilson, HCP Restaurant Delivery Driver [phone]
--- NOTE | 2019-05-04 11:56 | NUR ---
refused for patient to return to [facility]. Patient is a half-way resident at [facility] prior to this admission. Dr. Butcher made aware. Will look for another half-way SNF placement. Patient is off antibiotics and no skilled needs. Ladonna Wilson, HCP Product Handler [phone]
--- NOTE | 2019-05-04 12:05 | NUR ---
WK=310 Regular insulin 6 units given per sliding scale for KS=618 as ordered. No acute distress. HOB elevated. Continue on GT feeding of Glucerna 1.2 at 75ml/hr, tolerated well. Safety measure maintained. Call light within reached. Bed locked in low position, padded side rails up, bed alarm on. Continue to monitor.
--- NOTE | 2019-05-04 12:40 | NUR ---
IV CATHETER REMOVED FROM RIGHT FOOT IV catheter removed, intact and dressing applied, no active bleeding.
[2019-05-04 12:53] VITALS: BP_SYST 135
--- NOTE | 2019-05-04 14:05 | NUR ---
ROUND Patient resting in the bed. No acute distress. Respiration even and unlabored. Skin warm and dry to touch. Midline intact to NETTA, IVF infusing well. F/C intact, drain gravity. Safety measure maintained. Call light within reached. Bed locked in low position, padded side rails up, bed alarm on. Continue to monitor.
--- NOTE | 2019-05-04 15:35 | NUR ---
Met with at bedside. I explained to that a nursing home bed referral has been sent to local SNFs near [place], [place] area which she prefers because it is closer to her home. I explained to her the challenge for looking an accepting SNF with a nursing home bed for terminal operations manager placement. I explained to her that since [facility] is accepting and if I cannot find any other SNF that she will need to file an appeal if she refuse for her to transfer to [facility] because he will not have coverage after today. understood and said that if there is no other accepting SNF then she understand that he will need to return to [facility]. I told her that I will have an ambulance to pick her at 5pm to transport him to [facility] unless I hear from another accepting SNF. Residential SNF referral sent to the following SNFs: [facility] in [place] - no available bed [facility] in [facility] in [facility] in [facility] in [facility] ('s preference[facility] in [place] - no available bed [facility] in [facility] in [facility] in [facility] in [facility] in [place] Ladonna Wilson, LIBERTAD Coffee Shop Aide [phone]
--- NOTE | 2019-05-04 15:48 | NUR ---
SNF Availability: [facility] - Room 140A [address] [place] [address] Medic 1 ambulance will pear picker at 5:00pm Nurse Sissy made aware. Dr. Butcher made aware. Alla is aware that if there's no other accepting SNF for assisted meterman placement for the patient then she needs to make an appeal, explained to her because there is an accepting SNF ([facility]) patient will be denied of coverage after today if she refuses discharge. said if there's no other accepting SNF she is agreeable that patient will have to go back to [facility]. Ladonna Wilson, HCP Airway Controller [phone]
--- NOTE | 2019-05-04 15:56 | NUR ---
REPORT GIVEN TO WALTER SCHMID IN [facility].
[2019-05-04 16:32] VITALS: BP_SYST 130
[2019-05-04 16:37] VITALS: BP_SYST 133
--- NOTE | 2019-05-04 17:40 | NUR ---
PT TRANSFERRED Report given to WALTER Oates, [facility] at 1556 . Transfer packet with Transfer Orders and Medication Reconciliation form given to EMT with report. Exitcare provided. [facility] ID band removed, replaced with ID band with pt's name and . Midline intact to NETTA, no redness, no swelling, patent. All belongings sent with patient. Patient left floor via gurney escorted by EMT in no distress.
== END 2019-05-04 18:17 | DRG 870 ==
LOC: SED 20:39 → STU 04-17 00:18 → SIC 04-17 16:52 → STU 05-01 15:12 → SMU 05-03 10:31
PROVIDERS: ADMIT Internal Medicine Hospice and Palliative Medicine; ATTEND Internal Medicine Hospice and Palliative Medicine
PROC: 5A1955Z Respiratory Ventilation, Greater than 96 Consecutive Hours (ICD-10-PCS; principal; 2019-04-17)
PROC: 5A09357 Assistance with Respiratory Ventilation, Less than 24 Consecutive Hours, Continuous Positive Airway Pressure (ICD-10-PCS; 2019-04-17)
PROC: 0BH17EZ Insertion of Endotracheal Airway into Trachea, Via Natural or Artificial Opening (ICD-10-PCS; 2019-04-17)
PROC: 05H633Z Insertion of Infusion Device into Left Subclavian Vein, Percutaneous Approach (ICD-10-PCS; 2019-04-18)
PROC: 30233N1 Transfusion of Nonautologous Red Blood Cells into Peripheral Vein, Percutaneous Approach (ICD-10-PCS; 2019-04-26)
DX: A41.2 Sepsis due to unspecified staphylococcus (principal); J69.0 Pneumonitis due to inhalation of food and vomit; J96.00 Acute respiratory failure, unspecified whether with hypoxia or hypercapnia; G93.41 Metabolic encephalopathy; E87.1 Hypo-osmolality and hyponatremia; I69.354 Hemiplegia and hemiparesis following cerebral infarction affecting left non-dominant side; I69.351 Hemiplegia and hemiparesis following cerebral infarction affecting right dominant side; N17.9 Acute kidney failure, unspecified; N39.0 Urinary tract infection, site not specified; I82.611 Acute embolism and thrombosis of superficial veins of right upper extremity; Z99.11 Dependence on respirator [ventilator] status; E78.5 Hyperlipidemia, unspecified; G40.909 Epilepsy, unspecified, not intractable, without status epilepticus; F32.9 Major depressive disorder, single episode, unspecified; F41.9 Anxiety disorder, unspecified; H40.9 Unspecified glaucoma; E11.9 Type 2 diabetes mellitus without complications; I10 Essential (primary) hypertension; K56.41 Fecal impaction; D63.8 Anemia in other chronic diseases classified elsewhere; D70.9 Neutropenia, unspecified; E11.51 Type 2 diabetes mellitus with diabetic peripheral angiopathy without gangrene; R13.10 Dysphagia, unspecified; R65.20 Severe sepsis without septic shock; Z79.01 Long term (current) use of anticoagulants
CPT/HCPCS: 36415; 36600; 70450-TC; 71045; 71250-TC; 74018; 76604; 76700-TC; 80048; 80053; 80069; 80074; 80185-TC; 80202-TC; 81000-TC; 82140-TC; 82248-TC; 82542; 82803-TC; 82962; 83605; 83735-TC; 84100-TC; 84478-TC; 84484; 85007; 85025; 85027; 85610-TC; 85730-TC; 86886; 86900; 86901; 86920; 87040-TC; 87070-TC; 87081; 87086; 87205-TC; 87230-TC; 93005; 93971; 94002; 94003; 94640; 94660; 94760; 95816; 96365; 96367; 96375; 99285; C1751; C1769; G0378; J0330; J0456; J0610; J0692; J1165; J1450; J1644; J1815; J1940; J2020; J2060; J2270; J2405; J2543; J2765; J3370; J3475; J3480; J3490; J7030; J7040; J7050; J7060; J7131; J7612; J7613; P9021

== ENCOUNTER 2019-05-22 20:36 | Inpatient (IN) | payer BC, OTHER, MEDICAID ==
[~2019-05-22] VITALS: Ht 177.8 cm; Wt 81.6 kg
[~2019-05-22 20:36] MED LIST changes: +AMLO5TAB4 GT; -AMLO5TAB4 PO; +BACL10TA GT; -BACL10TA PO; -CLOP300T2 PO; +HYDR-4272 GT; -HYDR-4272 PO; +LEVE500T53 GT; -LEVE500T53 PO; +LIP10 GT; -LIP10 PO; +LORA10TA7 GT; -LORA10TA7 PO; +MOM GT; -MOM PO; +PHEN100O4 GT; -PHEN100O4 PO
--- NOTE | 2019-05-22 20:38 | NUR ---
Patient to ER bed 04 to gown for evaluation. Side rails up.
[2019-05-22 20:41] VITALS: BP_SYST 120
--- NOTE | 2019-05-22 20:49 | NUR ---
Pt BIB BLS from [facility] for fever. Staff gave Tylenol at 1830 with no relief. Pt's temperature is 101.1 temporal upon arrival, cooling measures have been started. Pt is nonverbal, hx of CVA, Diabetes and Epilepsy. Pt acting appropriately per staff, will continue to monitor.
--- NOTE | 2019-05-22 21:40 | NUR ---
# 20 gauge angiocath placed to LT Wrist. Use of asceptic technique. Opsite placed over site. Blood return noted. Blood for lab drawn from site. Flushed with 10 cc of normal saline. No evidence of infiltration noted. Patient tolerated well.
--- NOTE | 2019-05-22 21:46 | NUR ---
Pt's is at bedside and states he was discharged on May 04 for sepsis. Reports pt has been more lethargic and weakness.
[2019-05-22 21:58] LABS: BASOPHILS % (AUTO) 0.3 % (0.0-2.0); EOSINOPHILS % (AUTO) 0.3 % (0.0-4.0); HEMATOCRIT 32.3 % (36-54); HEMOGLOBIN 10.4 g/dL (14.0-18.0); LYMPHOCYTES # (AUTO) 0.4 K/uL (1.0-5.5); LYMPHOCYTES % (AUTO) 2.6 % (20.5-51.5); MEAN CORPUSCULAR HEMOGLOBIN 26 pg (27-31); MEAN CORPUSCULAR HGB CONC 32 % (32-36); MEAN CORPUSCULAR VOLUME 80 fL (79.0-98.0); MONOCYTES # (AUTO) 1.2 K/uL (0.0-1.0); MONOCYTES % (AUTO) 7.4 % (1.7-9.3); NEUTROPHILS # (AUTO) 14.3 K/uL (1.8-7.7); NEUTROPHILS % (AUTO) 89.4 % (40.0-70.0); PLATELET COUNT (AUTO) 233 K/uL (130-430); RED BLOOD CELL COUNT(AUTO) 4.02 MIL/uL (4.2-6.2); RED CELL DISTRIBUTION WIDTH 20.1 % (9.0-15.0)
[2019-05-22 22:02] LABS: INR 1.1 (0.80-1.20); PROTHROMBIN TIME 10.9 SECS (9.5-12.5)
[2019-05-22 22:04] LABS: CALCIUM 9.7 mg/dL (8.4-11.0); CREATININE 1.12 mg/dL (0.55-1.30)
[2019-05-22 22:10] LABS: ALBUMIN 2.2 g/dL (3.4-4.8); TOTAL BILIRUBIN 0.4 mg/dL (0.0-1.0)
[2019-05-22] MEDS ORDERED: VANCOMYCIN HCL 1,000 MG in NS 250 ML IV ONE (22:15)
[2019-05-22] MEDS ORDERED: PIPERACILLIN/TAZO 3.375 GM in NS 50 ML IV ONE (22:15)
[2019-05-22] MEDS ORDERED: NACL 0.9% 1,000 ML IV ONE (22:15)
--- NOTE | 2019-05-22 22:41 | NUR ---
ER Dr. Riley at bedside examining patient.
[2019-05-22] MEDS ORDERED: PIPERACILLIN/TAZOBACTAM 3.375 GM/VIAL (ZOSYN) IV ONE ×2 (23:09)
--- NOTE | 2019-05-22 23:16 | NUR ---
Patient transported to radiology via gurney, accompanied by rad staff
[2019-05-22] MEDS ORDERED: VANCOMYCIN HCL 1000 MG/VIAL IV ONE ×2 (23:25)
--- NOTE | 2019-05-22 23:36 | NUR ---
Pt returned from radiology in stable condition
[2019-05-23] VITALS (24 sets, daily range): BP systolic 68–150
--- NOTE | 2019-05-23 00:05 | NUR ---
# 16 FR Mary catheter with use of sterile technique. Immediate return of 75 cc dark yellow urine noted. Bedside drainage bag placed below level of bladder. Urine sample collected and sent to lab. Pt tolerated procedure well. Patient unable to toilet self.
[2019-05-23] MEDS ORDERED: CEL20 GT (00:14)
[2019-05-23] MEDS ORDERED: ONDA4TAB5 GT (00:14)
[2019-05-23] MEDS ORDERED: ACET325T53 GT ×2 (00:14)
[2019-05-23] MEDS ORDERED: FLEETMO RC (00:14)
[2019-05-23] MEDS ORDERED: HYDR-4038 GT (00:14)
[2019-05-23] MEDS ORDERED: CAT.1 GT (00:14)
[2019-05-23] MEDS ORDERED: DOCU-144 GT (00:14)
[2019-05-23] MEDS ORDERED: ALBU2.5V7 INH (00:14)
[2019-05-23] MEDS ORDERED: INSU100V11 SQ (00:14)
[2019-05-23] MEDS ORDERED: LACT10SO6 GT (00:14)
[2019-05-23] MEDS ORDERED: RIVA15TA GT (00:14)
--- NOTE | 2019-05-23 00:18 | NUR ---
Medication reconciliation completed with information provided by [facility]. Any prior medication reconciliation on file was reviewed and corrected.
[2019-05-23 00:21] LABS: BILIRUBIN,URINE NEGATIVE (NEGATIVE); BLOOD, URINE 3+ (NEGATIVE); CLARITY/URINE CLEAR (CLEAR); COLOR,URINE YELLOW (YELLOW); GLUCOSE,URINE NEGATIVE (NEGATIVE); KETONES,URINE NEGATIVE (NEGATIVE); LEUKOCYTE ESTERASE ,URINE 3+ (NEGATIVE); NITRITE, URINE NEGATIVE (NEGATIVE); PH,URINE >=9.0 (5.0-8.0); PROTEIN URINE 2+ (NEGATIVE)
[2019-05-23 00:26] LABS: RBC,URINE >100 /HPF (0-3); WBC,URINE >100 /HPF (0-3)
[2019-05-23 00:27] LABS: BACTERIA,URINE MANY /HPF (None Seen); MUCUS,URINE 3+ /LPF (None Seen); YEAST,URINE Many /HPF (None Seen)
--- NOTE | 2019-05-23 00:40 | NUR ---
Pt stated to vomit in bed, ER MD notified and ordered recieved.
[2019-05-23] MEDS ORDERED: ONDANSETRON HCL 4 MG/2 ML VIAL IVP ONE (00:45)
[2019-05-23] MEDS ORDERED: ONDANSETRON HCL 4 MG/2 ML VIAL ONE (00:45)
--- NOTE | 2019-05-23 00:46 | NUR ---
Pt was medicated and gown was changed. Will continue to monitor.
--- NOTE | 2019-05-23 01:28 | NUR ---
Dr. Riley at bedside discussing results with patient
--- NOTE | 2019-05-23 02:00 | NUR ---
Patient will be admitted to care of Dr. Crawford. Admitted to telemetry unit. Belongings list completed. Summary report printed. Report will be given at bedside.
--- NOTE | 2019-05-23 02:01 | NUR ---
[facility] has been notified on the admission and we will be holding patient in the ED until a bed is available
[2019-05-23] MEDS: NACL 0.9% 1,000 ML IV SCH ×7 (02:27→22:18)
--- NOTE | 2019-05-23 02:50 | NUR ---
[facility] notified ER [facility]
--- NOTE | 2019-05-23 03:14 | NUR ---
ADMISSION NOTE Received patient from ER via rosendo, received report from WALTER MUNOZ. Patient admitted with diagnosis of SEPSIS. Patient oriented to hospital routine, call light, toileting and safety-patient verbalized understanding.
--- NOTE | 2019-05-23 03:26 | NUR ---
[facility] Licensed nurse present. IV present no signs or symptoms of infiltration.
--- NOTE | 2019-05-23 04:00 | NUR ---
SEIZURE PADS APPLIED Seizure pads applied for safety due to hx of epilepsy.
--- NOTE | 2019-05-23 06:56 | NUR ---
CLOSING NOTES All needs met throughout shift. Safety measures maintained. Diet order to be clarified with MD, will endorse to day shift nurse to follow up. SBAR report and care will be endorsed as well.
--- NOTE | 2019-05-23 07:30 | NUR ---
ASSUMPTION OF CARE: RECEIVED PT AWAKE, NON-VERBAL, DX: RISK FOR INJURY, R/T SEPSIS, SR ON TELEMONITOR, NO S/S OF DISTRESS, BILATERAL UPPER EXTREMITIES CONTRACTED, LOWER EXTREMITIES PARALYSIS, G-TUBE CLAMPED, GRIMALDO CATHETER IN PLACE, WITH DARK, YELLOW URINE OUTPUT, IV SITE INTACT, PATENT, NO REDNESS OR SWELLING, NETTA MIDLINE CLEAN, DRY, AND INTACT, NO REDNESS OR SWELLING NOTED, RESTING ON AIR MATTRESS, WITH CALL LIGHT PLACED WITHIN REACH, WILL CON'T TO MONITOR AND ASSESS.
--- NOTE | 2019-05-23 07:55 | NUR ---
CODE BLUE: UPON ENTERING THE ROOM, PT WAS FOUND TO BE UNRESPONSIVE WITHOUT A PULSE, IMMEDIATE CHEST COMPRESSIONS STARTED, JARRED MACEDO WAS CALLED, ONCE CODE TEAM ARRIVED, PT PLACED ON BACK BOARD, CONNECTED TO DEFIBRILLATOR, CON'T CPR.
--- NOTE | 2019-05-23 07:55 | NUR ---
RT NOTES RT YIN AND RT THONY ATTEND TO CODE BLUE. INITIATED CPR.
--- NOTE | 2019-05-23 08:01 | NUR ---
ROSC: PT RHYTHM V-FIB, DELIVERED 1 SHOCK @ 120J, RESULTING IN ROCS, CALLED FOR ICU-BED.
[2019-05-23] MEDS ORDERED: MAG-AL HYDROX/SIMETH 30 ML UDC GT PRN (08:15)
[2019-05-23] MEDS ORDERED: ACETAMINOPHEN 325 MG TABLET GT PRN (08:15)
[2019-05-23] MEDS ORDERED: ACETAMINOPHEN 325 MG TABLET GT SCH (08:15)
[2019-05-23] MEDS ORDERED: ALBUTEROL SULFATE 0.083% 2.5 MG/3 ML VIAL.NEB INH PRN ×3 (08:15→09:30)
[2019-05-23] MEDS ORDERED: MILK OF MAGNESIA 30 ML UDC GT PRN (08:15)
--- NOTE | 2019-05-23 08:20 | NUR ---
RT NOTES CONNECTED PT TO VENTILATOR AT THIS TIME VIA SETTING AC 18, 450, 100%. SOFTWARE DEVELOPMENT PROJECT MANAGER TRACEY MADE AWARE. PAGING HEALTH ASSISTANT FOR NEW ORDERS.
[2019-05-23] MEDS ORDERED: NOREPINEPHRINE 4 MG/4 ML VIAL IV ONE ×2 (08:27→12:04)
--- NOTE | 2019-05-23 08:34 | NUR ---
CONSULT: CARDIO. DR. BENITEZ CALLED (DR. IGNACIO [facility]) SPOKE TO RICH DIALED [phone] ORDERED BY Taniya PENNY. CONSULT: PULMO DR. CARRASQUILLO CALLED SPOKE TO JOSE ANGEL DIALED [phone] ORDERED BY Nura PENNY CONSULT: ID DR. GILBERT CALLED (DR. SYKES [facility]) SPOKE TO JOSE ANGEL DIALED [phone] ORDERED BY Nura PENNY
--- NOTE | 2019-05-23 08:35 | NUR ---
Received pt from [facility] to ICU bed 5 via bed with RN in attendance. ST rate 105 with BP 80's on arrival. 02 sats 7.[address] taped 25cm lip line. Vent settings AC 18/450/100%. Lungs clear upper lobes. No secretions suctioned. Pt lying flat in bed. NS from ER still infusing. Pt has a RUE Midline in place that is leaking and has a wet biopatch. Dressing changed using sterile technique. CXR taken upon arrival for ET placement. Mary catheter in place with minimal dark urine in bag. SL to left wrist in place. Pt's skin feel warm and temp 101. Ice packs applied. Will continue to monitor the pt. No seizure activity noted. Padded side rails in place.
--- NOTE | 2019-05-23 08:37 | NUR ---
NURSES NOTES: PT FAMILY INFORMED OF STATUS OF EVENT, SPOKE WITH , ( OF THE PT), INFORMED OF RESUSCITATION AND CURRENT CONDITION AND LOCATION (ICU BED-5).
--- NOTE | 2019-05-23 08:41 | NUR ---
CONSULTATION PAGED/CALLED Reason for Consultation: SEPSIS/POST CARDIAC ARREST Person Who was Notified: KHUSHBOO Consulting Physician: DR. BENITEZ/ DR IGNACIO BILINGUAL RESEARCH INTERVIEWER SPOKE TO MD Linux Devops Engineer Specialty: PERIOPERATIVE TECH Ordering Physician: DR. AG
[2019-05-23] MEDS ORDERED: LORATADINE 10 MG TABLET GT SCH (09:00)
[2019-05-23] MEDS: amLODIPine BESYLATE 10 MG TABLET GT SCH (09:00)
[2019-05-23] MEDS ORDERED: IPRATROPIUM BROM 0.5 MG/2.5 ML VIAL.NEB (ATROVENT) INH PRN (09:30)
[2019-05-23] MEDS ORDERED: MORPHINE 2 MG/ML INJ. SYRINGE IVP PRN (09:30)
[2019-05-23] MEDS ORDERED: DOPamine PREMIX 250 ML IV PRN (09:30)
[2019-05-23] MEDS ORDERED: LORazepam 2 MG/ML VIAL IVP PRN (09:30)
[2019-05-23] MEDS ORDERED: LORazepam 2 MG/ML VIAL IM PRN (09:30)
[2019-05-23] MEDS ORDERED: NACL 0.9% 1,000 ML IV SCH (09:30)
[2019-05-23 09:31] LABS: BASOPHILS % (AUTO) 0.1 % (0.0-2.0); EOSINOPHILS # (AUTO) 0.1 K/uL (0.0-0.4); EOSINOPHILS % (AUTO) 0.9 % (0.0-4.0); HEMATOCRIT 30.5 % (36-54); HEMOGLOBIN 9.3 g/dL (14.0-18.0); LYMPHOCYTES # (AUTO) 0.2 K/uL (1.0-5.5); LYMPHOCYTES % (AUTO) 1.6 % (20.5-51.5); MEAN CORPUSCULAR HEMOGLOBIN 26 pg (27-31); MEAN CORPUSCULAR HGB CONC 31 % (32-36); MEAN CORPUSCULAR VOLUME 84 fL (79.0-98.0); MONOCYTES # (AUTO) 0.4 K/uL (0.0-1.0); NEUTROPHILS # (AUTO) 12.6 K/uL (1.8-7.7); NEUTROPHILS % (AUTO) 94.4 % (40.0-70.0); PLATELET COUNT (AUTO) 186 K/uL (130-430); RED BLOOD CELL COUNT(AUTO) 3.66 MIL/uL (4.2-6.2); RED CELL DISTRIBUTION WIDTH 19.9 % (9.0-15.0); WHITE BLOOD COUNT (AUTO) 13.3 K/uL (4.8-10.8)
[2019-05-23 09:34] LABS: CALCIUM 9.2 mg/dL (8.4-11.0); CREATININE 2.38 mg/dL (0.55-1.30)
[2019-05-23 09:39] LABS: ALBUMIN 1.7 g/dL (3.4-4.8); TOTAL BILIRUBIN 1.4 mg/dL (0.0-1.0)
[2019-05-23 09:40] LABS: POTASSIUM 2.9 mmol/L (3.5-5.1)
[2019-05-23] MEDS ORDERED: POTASSIUM CHLORIDE 40 MEQ in NS 250 ML IV ONE (09:45)
[2019-05-23] MEDS ORDERED: HYDROCORTISONE SOD SUCC 100 MG/2 ML VIAL IVP ONE ×2 (09:45→10:15)
--- NOTE | 2019-05-23 09:48 | NUR ---
RT NOTES NEW ORDER RECEIVED FROM DR. CARRASQUILLO. ADDED PEEP 5 AND DECREASED FIO2 TO 40%. RN KALINA MADE AWARE. WILL CONTINUE MONITORING.
[2019-05-23] MEDS ORDERED: ALBUMIN HUMAN 5% 250 ML IV ONE ×2 (10:00→14:45)
[2019-05-23] MEDS: PHENYTOIN 100 MG/4 ML UDC (DILANTIN) GT SCH ×2 (10:16→21:21)
--- NOTE | 2019-05-23 10:16 | NUR ---
Nutrition Update Jace Scale 12 noted. Pt admitted for sepsis. Diet: Jevity 1.2 at 45 ml/hr, Free Water Flush: 100 via GT BMI: 25.8 kg/m2 RD to follow per nutrition care standards.
[2019-05-23] MEDS: POLYETHYLENE GLYCOL 3350, 17 GM/ POWD.PACK GT SCH ×2 (10:17→21:20)
[2019-05-23] MEDS: DOCUSATE SODIUM 100 MG CAPSULE PO SCH ×2 (10:17→21:21)
[2019-05-23] MEDS: FAMOTIDINE 20 MG TABLET GT SCH (10:17)
[2019-05-23] MEDS: BACLOFEN 10 MG TABLET GT SCH (10:17)
[2019-05-23] MEDS: ATORVASTATIN 10 MG TABLET GT SCH (10:17)
[2019-05-23] MEDS: levETIRAcetam 500 MG TABLET GT SCH ×2 (10:17→21:21)
[2019-05-23] MEDS ORDERED: SODIUM BICARBONATE 8.4% JECT 50 MEQ/50 ML SYRINGE IVP ONE (10:52)
[2019-05-23] MEDS ORDERED: ePHEDrine sulfate 50 MG/ML VIAL IVP ONE (10:52)
[2019-05-23] MEDS ORDERED: CALCIUM CHLORIDE 1 GM/10 ML DISP.SYRIN (14 mEq Ca++/SYR) IV ONE (10:52)
[2019-05-23] MEDS ORDERED: ATROPINE SULFATE 1 MG/10 ML SYRINGE IVP ONE (10:52)
[2019-05-23] MEDS ORDERED: ETOMIDATE 20 MG/ 10 ML VIAL (AMIDATE) IVP ONE (10:52)
--- NOTE | 2019-05-23 11:00 | NUR ---
Family in to see pt. Questions answered. No change in pts condition. Levophed at 20 mcgs and dopamine added for low BP. Dopamine at 5 mcgs. Family aware.
--- NOTE | 2019-05-23 11:17 | NUR ---
CODE STATUS CHANGE Per pts , she would like to make the pt a full DNR. Dr. Monroe spoke with her at the bedside in detail about this. The pts wants NO CODE BLUE CALLED but if the ET tube should become dislodged or removed accidenlty Addendum: 05/23/19 at 1317 by Stella Pina RN accidentally she DOES want it replaced. NO ACLS drugs for a code blue. Continue the 2 vasopressors that the patient is already on.
[2019-05-23] MEDS ORDERED: hydrALAZINE HCL 25 MG TABLET GT SCH (12:00)
[2019-05-23] MEDS: NOREPINEPHRINE BITARTRATE 4 MG in NS 246 ML IV PRN ×3 (12:30→23:28)
[2019-05-23] MEDS: IPRATROPIUM BROM 0.5 MG/2.5 ML VIAL.NEB (ATROVENT) INH SCH ×2 (13:30→20:05)
[2019-05-23] MEDS: ALBUTEROL SULFATE 0.083% 2.5 MG/3 ML VIAL.NEB INH SCH ×2 (13:30→20:04)
--- NOTE | 2019-05-23 13:30 | NUR ---
Albumin 250cc started. Pt remains on dopamine and levophed. Temp 99.9 SR on monitor. No seizure activity noted. Low urine output. Notified Dr. Monroe regarding urine and orders left.
[2019-05-23] MEDS: PIPERACILLIN/TAZO 3.375/DEX-IS 50 ML IV SCH ×2 (13:49→18:17)
[2019-05-23] MEDS ORDERED: HYDROCORTISONE SOD SUCC 100 MG/2 ML VIAL IVP SCH (14:00)
--- NOTE | 2019-05-23 15:00 | NUR ---
Spoke with Dr. Doran regarding urine output. Orders left for renal consult. Spoke with Dr. Galvez on the phone. No orders left.
[2019-05-23] MEDS: HYDROCORTISONE SOD SUCC 100 MG/2 ML VIAL IVP SCH ×2 (15:16→21:23)
[2019-05-23] MEDS: TIMOLOL MALEATE 0.5% OPHTHALMIC DROPS 5 ML OP SCH ×2 (15:17→21:21)
--- NOTE | 2019-05-23 15:39 | NUR ---
CONSULT: RENAL. DR. LOVETT CALLED SPOKE TO NAVI DIALED [phone] ORDERED BY Nura PENNY
--- NOTE | 2019-05-23 17:00 | NUR ---
Pt has a large mucous stool. Romi care done. No skin breakdown noted. Pt remains unresponsive to instruction. Keeps eyes open and does not track. Doesn't withdraw to pain. SAUNDRA unreactive to light. 3mm. 2nd albumin bolus given. Pt tolerating begin off dopamine. Levophed being titrated down slowly.
[2019-05-23] MEDS ORDERED: RIVAROXABAN 15 MG TABLET GT SCH (18:00)
--- NOTE | 2019-05-23 18:15 | NUR ---
Remains comfortable on morphine at 2 mg/hr. No resp discomfort.
--- NOTE | 2019-05-23 18:15 | NUR ---
Temp 101. Tylenol given via GT and clamped. Right upper arm Midline noted to be leaking at insertion site. New order for PICC line taken to nursing office to be ordered. Tolerating being off dopamine. No seizures noted. VSS with levophed. Family back in to see pt.
--- NOTE | 2019-05-23 19:30 | NUR ---
Report given to oncoming RN to assume care.
--- NOTE | 2019-05-23 19:50 | NUR ---
PM Assessment Pt in bed, obtunded. Unable to track. SR shown on monitor. ETT in place. AC 18, TV 450, FIO2 40%. VSS. Temperature still elevated, 100.2. PEEP 5. NETTA Midline in place. Leakage noted. No s/s of infiltration noted. LFA 20g in place. Levophed infusing at 16mcg/min. G-tube in place, clamped. No residual noted. Mary catheter in place draining yellow urine. Bed locked in lowest position, safety precautions in place, and call light in reach. Will continue to monitor.
[2019-05-23] MEDS ORDERED: LATANOPROST 2.5 ML DROPS (XALATAN) OP SCH (21:00)
--- NOTE | 2019-05-23 21:00 | NUR ---
Called Dr. Galvez called for clearance to insert PICC line. cleared. Ricardo PICC line RN notified.
[2019-05-24] VITALS (32 sets, daily range): BP systolic 107–146
[2019-05-24] MEDS: PIPERACILLIN/TAZO 3.375/DEX-IS 50 ML IV SCH ×2 (00:13→05:42)
[2019-05-24] MEDS: INSULIN LISPRO SLIDING SCALE 100 UNITS/ML VIAL (humaLOG) SUBCUT PRN ×3 (00:18→12:20)
[2019-05-24] MEDS: IPRATROPIUM BROM 0.5 MG/2.5 ML VIAL.NEB (ATROVENT) INH SCH ×3 (01:55→13:00)
[2019-05-24] MEDS: ALBUTEROL SULFATE 0.083% 2.5 MG/3 ML VIAL.NEB INH SCH ×3 (01:55→13:00)
[2019-05-24 05:28] LABS: EOSINOPHILS % (AUTO) 0.4 % (0.0-4.0); HEMATOCRIT 28.3 % (36-54); HEMOGLOBIN 9.1 g/dL (14.0-18.0); LYMPHOCYTES # (AUTO) 0.2 K/uL (1.0-5.5); MEAN CORPUSCULAR HEMOGLOBIN 26 pg (27-31); MEAN CORPUSCULAR HGB CONC 32 % (32-36); MEAN CORPUSCULAR VOLUME 81 fL (79.0-98.0); MONOCYTES # (AUTO) 0.9 K/uL (0.0-1.0); MONOCYTES % (AUTO) 8.3 % (1.7-9.3); NEUTROPHILS # (AUTO) 9.1 K/uL (1.8-7.7); NEUTROPHILS % (AUTO) 89.3 % (40.0-70.0); PLATELET COUNT (AUTO) 141 K/uL (130-430); RED CELL DISTRIBUTION WIDTH 19.9 % (9.0-15.0); WHITE BLOOD COUNT (AUTO) 10.2 K/uL (4.8-10.8)
[2019-05-24] MEDS: HYDROCORTISONE SOD SUCC 100 MG/2 ML VIAL IVP SCH ×2 (05:42→13:43)
[2019-05-24 06:08] LABS: ALBUMIN 1.8 g/dL (3.4-4.8); CALCIUM 7.8 mg/dL (8.4-11.0); CREATININE 2.26 mg/dL (0.55-1.30); POTASSIUM 3.8 mmol/L (3.5-5.1); TOTAL BILIRUBIN 1.3 mg/dL (0.0-1.0)
--- NOTE | 2019-05-24 06:50 | NUR ---
Closing note Pt remains obtunded. SR on monitor. ETT in palce. AC 18, TV 450, FIO2 30%, PEEP 5. VSS. SUKHWINDER PICC Line in place, LFA 20g in place. Sites C/D/I. Levophed @1mcg/min. RUE Midline leaking noted. G-tube clamped. Mary draining yellow urine to gravity. Bed locked in lowest position, call light in reach, and safety precautions in place. Will endorse to oncoming RN.
--- NOTE | 2019-05-24 07:15 | NUR ---
Received patient from [facility] shift nurse and received report. Patient in bed in no acute distress eyes open. Padded side rails up. Call light with in reach.
--- NOTE | 2019-05-24 07:22 | NUR ---
Endorsement Report given to oncoming RN at bedside via SBAR approach.
--- NOTE | 2019-05-24 08:30 | NUR ---
MD Monroe at bedside.
[2019-05-24] MEDS ORDERED: FUROSEMIDE 20 MG/2 ML VIAL IVP ONE (08:45)
[2019-05-24] MEDS ORDERED: MINERAL OIL/PETROLATUM,WHITE 3.5 GM EYE OINT. OP SCH (09:00)
[2019-05-24] MEDS: amLODIPine BESYLATE 10 MG TABLET GT SCH (09:00)
--- NOTE | 2019-05-24 09:09 | NUR ---
CONSULTS Consult called to Dr. Jimenez. Spoke with Ya. Consult called to Dr. Acevedo spoke with Ya as well.
--- NOTE | 2019-05-24 09:15 | NUR ---
MD Galvez at bed side.
[2019-05-24] MEDS: levETIRAcetam 500 MG TABLET GT SCH (09:20)
[2019-05-24] MEDS: PHENYTOIN 100 MG/4 ML UDC (DILANTIN) GT SCH (09:20)
[2019-05-24] MEDS: BACLOFEN 10 MG TABLET GT SCH (09:21)
[2019-05-24] MEDS: TIMOLOL MALEATE 0.5% OPHTHALMIC DROPS 5 ML OP SCH (09:21)
[2019-05-24] MEDS: ATORVASTATIN 10 MG TABLET GT SCH (09:21)
[2019-05-24] MEDS: DOCUSATE SODIUM 100 MG CAPSULE PO SCH (09:21)
[2019-05-24] MEDS: FAMOTIDINE 20 MG TABLET GT SCH (09:21)
[2019-05-24] MEDS: POLYETHYLENE GLYCOL 3350, 17 GM/ POWD.PACK GT SCH (09:23)
--- NOTE | 2019-05-24 09:30 | NUR ---
MD Doran at bedside.
--- NOTE | 2019-05-24 10:00 | NUR ---
Levophed drip turned off at this time. Patient tolerating well.
--- NOTE | 2019-05-24 10:40 | NUR ---
RT NOTES - AC 14 DECREASED RATE TO 14bpm PER DR. CARRASQUILLO. RN BERENICE MADE AWARE. WILL CONTINUE MONITORING.
--- NOTE | 2019-05-24 10:58 | NUR ---
Patient left unit to go get cat scan with nurse and respiratory therapist. On tele monitor.
[2019-05-24] MEDS ORDERED: PHENYTOIN 100 MG/4 ML UDC (DILANTIN) GT ONE (11:15)
[2019-05-24] MEDS ORDERED: PIPERACILLIN/TAZOBACTAM 2.25 GM/ D5W 50 ML IV SCH ×2 (12:00)
--- NOTE | 2019-05-24 13:50 | NUR ---
approached me regarding removal of life support and starting comfort measures. Questions answered. Call out to .
--- NOTE | 2019-05-24 14:05 | NUR ---
Dr. Monroe spoke to pts over the phone regarding her decision to stop life support and start comfort measures. Questions answered and pts still wishes to proceed. Orders left by if Dr. Doran is ok with 's decision. Call out to Dr. Doran.
--- NOTE | 2019-05-24 14:45 | NUR ---
Dr Doran Spoke with Dr. Doran and he is in agreement with DNR status and removal of life support and starting comfort measures. He also would like a hospice eval with [facility].
[2019-05-24] MEDS ORDERED: MORPHINE 4 MG/ML INJ. SYRINGE IVP ONE (15:45)
[2019-05-24] MEDS ORDERED: MORPHINE I.V. DRIP 100 ML IV PRN ×2 (15:45→18:30)
[2019-05-24] MEDS ORDERED: MORPHINE 2 MG/ML INJ. SYRINGE IVP PRN (15:45)
[2019-05-24] MEDS ORDERED: NALOXONE HCL 0.4 MG/ML AMP (NARCAN) IVP PRN (15:45)
[2019-05-24] MEDS ORDERED: MORPHINE PCA 50 mg/50 mL NS 50 ML IV PRN ×3 (16:00→21:00)
--- NOTE | 2019-05-24 16:40 | NUR ---
Morphine CONSTRUCTION COORDINATOR started at 2 mg/hr. Family at bedside and aware.
--- NOTE | 2019-05-24 17:48 | NUR ---
RT NOTES - TERMINAL EXTUBATION EXTUBATED PT AND PLACED ON 2L N/C PER . RN AWARE.
--- NOTE | 2019-05-24 17:48 | NUR ---
Morphine drip infusing at 2mg.hr. Pt given morphine 4 mg IVP and extubated per pts 's wishes. Placed on 2L NC. Will monitor for distress. Family present at bedside. Call placed to Dr. Doran to inquire if pt still needs a urology consult as Dr. Jimenez cannot see the patient due to insurance.
--- NOTE | 2019-05-24 19:00 | NUR ---
No return call form Dr. Doran regarding urology consult. Endorsed to oncoming staff.
--- NOTE | 2019-05-24 19:15 | NUR ---
Gave report to NOC shift regarding patient and endorsed patient. Patient in no acute distress, side rails x 2 up. Call light with in reach.
--- NOTE | 2019-05-24 19:25 | NUR ---
PM SHIFT ASSESSMENT Pt is obtunded, non responsive to verbal or tactile stimuli. SR noted on monitor. O2 via NC @ 2L. Skin warm and dry. PICC to SUKHWINDER with morphine TELLER VAULT infusing. Gtube noted, clamped. Family at bedside. Safety precautions in place, will continue to monitor.
[2019-05-24] MEDS ORDERED: PHENYTOIN 100 MG/4 ML UDC (DILANTIN) GT SCH (21:00)
[2019-05-24] MEDS ORDERED: FUROSEMIDE 20 MG/2 ML VIAL IVP SCH (21:00)
[2019-05-25] VITALS (14 sets, daily range): BP systolic 115–147
--- NOTE | 2019-05-25 02:05 | NUR ---
Pt resting in bed. No signs of acute distress noted. Morphine drip infusing. Will continue to monitor.
--- NOTE | 2019-05-25 07:25 | NUR ---
ENDORSEMENT Pt care endorsed to WALTER Xavier.
--- NOTE | 2019-05-25 07:35 | NUR ---
AM ASSESSMENT Pt received from night RN using SBAR. Pt received laying in bed with eyes open, pt is non-responsive at this time. Mary cath in place draining yellow urine to gravity. CLEARANCE COORDINATOR pump infusing continous Morphine drip at 1 cc/hr. Padded side rails applied to bed. No signs of acute distress. Bed in lowest position.
--- NOTE | 2019-05-25 07:50 | NUR ---
Spoke with Dr. Butcher regarding Dr. Jimenez not being able to come see the patient yesterday due to insurance. Per Dr. butcher, no need for urology consult at this point and Dr. Galvez here and agrees.
[2019-05-25] MEDS ORDERED: MINERAL OIL/PETROLATUM,WHITE 3.5 GM EYE OINT. OP ONE (09:00)
[2019-05-25] MEDS ORDERED: MORPHINE 2 MG/ML INJ. SYRINGE IVP PRN (10:45)
--- NOTE | 2019-05-25 10:45 | NUR ---
Morphine Drip Morphine drip discontinued, per .
--- NOTE | 2019-05-25 10:50 | NUR ---
Transferred Pt transferred to [facility] room 108-A. Report given bedside to Darlene Corrales.
--- NOTE | 2019-05-25 11:10 | NUR ---
Family Called pt's Kelly and informed her that pt has been transferred to [facility] room 108.
--- NOTE | 2019-05-25 11:42 | NUR ---
continuation of care Patient is laying in bed no signs of distress, breathing is equal and non labored. Patient is in a comatose state. Patient shows no signs of grimacing or agitation. Patient is on 2L nasal canula.Mary catheter is draining to gravity. Patient has suction at bed side. Patient has all safety precautions in place. Comfort measures in place. will continue to monitor.
--- NOTE | 2019-05-25 11:55 | NUR ---
Nutrition Assessment (short note d/t lack of time) A- RD reviewed pt's current EMR including diet Hx, physician notes, nursing notes, pertinent labs/meds/procedures, care trends and care activity. Pt is due for Nutritional Assessment. Per bed huddle discussion, pt was extubated and is now on comfort care per pt and 's decision. Morphine drip was ordered. Current EN support provides: 1296 kcal, 60 gm protein and 1272ml free water daily. Ht: 5'10 Wt: 180 lb %IBW:108 IBW: 166 lb, 75 kg ESTIMATED NUTRITIONAL REQUIREMENTS CALORIES/DAY: 0658-1109 kcal/day (30-35 kcal/kg CBW for Sepsis) PROTEIN/DAY: 66-123 gm/day (.8-1.5 gm/kg CBW for Renal Dz pre-dialysis and Sepsis) FLUID/DAY: per MD (Renal Dz) D: Increased nutritional needs r/t metabolic demands AEB estimated calorie and protein needs for sepsis. I: Recommend: continuing current EN support. M: Monitor EN tolerance and intake w/ goal of pt meeting at least 75% of estimated nutritional needs, labs trending WNL, normal GI function, skin integrity/wt maintenance. E: RD to F/U within 2-3 days YARA DO
--- NOTE | 2019-05-25 12:03 | NUR ---
Dietitian Recommendation I: Recommend: continuing current EN support. Please see Nutritional Assessment for details. IH, YARA
--- NOTE | 2019-05-25 12:18 | NUR ---
Investigator Internal Affairs: ENGINE TEST CELL TECHNICIAN went to pt. room 2x hoping to meet with as pt. cannot speak. has not yet arrive at hospital. ENGINE TEST CELL TECHNICIAN will attempt to meet with her.
--- NOTE | 2019-05-25 13:57 | NUR ---
rn rounding Patients family is at bedside. Patients family is speaking with social media editor. Called kitchen to bring comfort tray for family. Patient has comfort measures in place. Patient shows no signs of any distress, no signs of agitation. no other needs at this time. will continue to monitor. Patients is stating she does not want an autopsy preformed after the passing of the patient.
--- NOTE | 2019-05-25 14:21 | NUR ---
Television Writer: JUDGE CLERK met with pts.' and daughter outside of bedroom. , Mrs. Shannon stated she felt she did not need anything. At that moment her son was in the room visiting with his dad. stated son was playing jazz music for pt. as he is a petroleum inspector. , Mrs. Shannon stated she did not need any reverend or steel sash erector to be called. stated informed her that her would pass away today or tomorrow. Mrs. Shannon stated to JUDGE CLERK she strongly feels pt. will pass away today. Mrs. Shannon stated to JUDGE CLERK she does not want her to have to go through an autopsy. JUDGE CLERK asked Rn about the procedure re an autopsy. Rn did not know the procedure, but added she was including 's request in her notes. JUDGE CLERK spoke to surgery aid. Lora who confirmed the family would have to give consent for an autopsy. JUDGE CLERK relayed this info to the family. Also family was inquiring about from where do they receive a certificate from. JUDGE CLERK shared with her, she will get this certificate once her is picked up from the hospital, the hide curer will submit paperwork. Once this is done, she should be receiving the certificate in the mail. JUDGE CLERK will remain available as needed.
--- NOTE | 2019-05-25 15:21 | NUR ---
rn rounding Patient is laying in bed comatose state no signs of any distress, breathing is equal and non labored. Patient family is at bed side. educated them to call light for assistance. Patient has comfort measures in place. will continue to monitor.
--- NOTE | 2019-05-25 17:47 | NUR ---
PAIN MEDICATION PATIENT IS SHOWING SIGNS OF DISCOMFORT MEDICATED FOR PAIN FAMILY IS AT BED SIDE. PATIENTS FAMILY HAVE NO OTHER NEEDS AT THIS TIME. ALL COMFORT NEEDS AND SAFETY NEEDS ARE IN PLACE. WILL CONTINUE TO MONITOR.
--- NOTE | 2019-05-25 18:29 | NUR ---
rn closing note Patient is laying in bed in a comatose state. Patient was medicated for pain , patient appears more comfortable. Patients family is at bed side. Patient has all safety precautions in place. Patient has all comfort measures in place. will endorse report to oncoming night nurse. no other needs at this time. will continue to monitor.
--- NOTE | 2019-05-25 19:20 | NUR ---
OPENING NOTES Pt and endorsement received from day shift nurse. Pt is lying in bed in a comatose state. Family at bedside. Pt with PICC line on left upper arm. Family encouraged to use call light when needed. Safety precautions in place with 3 side rails up, wheels locked, bed alarm on and in lowest level. Will continue to monitor.
[2019-05-25] MEDS ORDERED: MINERAL OIL/PETROLATUM,WHITE 3.5 GM EYE OINT. OP SCH (21:00)
--- NOTE | 2019-05-25 21:43 | NUR ---
PAGED PAGING THE RENDERER PHYSICIAN, DR. VALVERDE, FOR ORDERS, SPOKE WITH
--- NOTE | 2019-05-25 21:57 | NUR ---
SPOKE TO DR. VALVERDE Spoke to Dr. Valverde regarding pt's fever, temp was 101. Dr. Valverde ordered Tylenol 650mg suppository every 6 hours PRN. Read back order and will carry out.
[2019-05-25] MEDS ORDERED: ACETAMINOPHEN 650 MG SUPP.RECT RC PRN (22:00)
--- NOTE | 2019-05-25 22:15 | NUR ---
TYLENOL 650MG SUPPOSITORY Pt had a temp of 101. Tylenol 650mg suppository given as ordered. Cold packs covered in towel applied on the head. Family at bedside. Will continue to monitor.
--- NOTE | 2019-05-25 23:59 | NUR ---
TEMP RECHECKED Temp rechecked and is 101.8. Applied new cold packs covered in towel on the pt's head. Face wiped with wash cloth. Will continue to monitor.
--- NOTE | 2019-05-26 02:17 | NUR ---
TEMP RECHECKED Temp rechecked and is 101.5. Applied new cold packs covered in towel on the pt's head. Will continue to monitor.
--- NOTE | 2019-05-26 03:31 | NUR ---
ROUNDS No signs of pain like grimacing or moaning, FLACC=0/10. No signs of agitation. Temp rechecked and is 98.9. Maintained O2 inhalation at 4L via nasal cannula. No signs of acute distress at this time. Seizure and safety precautions in place. Will continue to monitor.
--- NOTE | 2019-05-26 04:02 | NUR ---
ROUNDS Pt O2 saturation on the monitor was declining and OH is sustaining at 40-45. Went to check pt and vital signs, BP machine unable to read BP, O2 sat and OH. No chest rise and fall noted and no breathing noted.
--- NOTE | 2019-05-26 04:05 | NUR ---
NO VITAL SIGNS Absence of pulse determined by palpation of the carotid and femoral arteries and by auscultation over the precordium for no less than 1 full minute. Absence of respiration. Lack of response to tactile stimuli or absence of reflexes. Pupils fixed and dilated. Documentation of a flat EKG on the monitor. Will inform family and MD.
--- NOTE | 2019-05-26 04:07 | NUR ---
NOTIFIED [facility] Spoke to [facility] and notified pt has . [facility] said they will come see the pt.
--- NOTE | 2019-05-26 04:21 | NUR ---
NOTIFIED ALL MD OF PT EXPIRING.
--- NOTE | 2019-05-26 04:30 | NUR ---
REMOVED GRIMALDO/IV Grimaldo catheter, PICC, IV and nasal cannula was removed.
--- NOTE | 2019-05-26 05:22 | NUR ---
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 Their telephone number is [phone].
--- NOTE | 2019-05-26 06:02 | NUR ---
DR. VALVERDE CALLED BACK AND WAS INFORMED BY FANTASMA THAT PT HAD . Addendum: 05/26/19 at 0603 by Rylee Oviedo RN Family at bedside.
--- NOTE | 2019-05-26 08:40 | NUR ---
Body release : Body was released to [facility]. Family was at the bedside.
== END 2019-05-26 04:05 | disposition expired | DRG 871 ==
LOC: SED 20:36 → STU 05-23 01:19 → SIC 05-23 08:32 → SMU 05-25 11:02
PROVIDERS: ADMIT Internal Medicine; ATTEND Internal Medicine
PROC: 5A1945Z Respiratory Ventilation, 24-96 Consecutive Hours (ICD-10-PCS; 2019-05-23)
PROC: 0BH17EZ Insertion of Endotracheal Airway into Trachea, Via Natural or Artificial Opening (ICD-10-PCS; 2019-05-23)
PROC: 5A12012 Performance of Cardiac Output, Single, Manual (ICD-10-PCS; 2019-05-23)
PROC: 02HV33Z Insertion of Infusion Device into Superior Vena Cava, Percutaneous Approach (ICD-10-PCS; principal; 2019-05-24)
DX: A41.9 Sepsis, unspecified organism (principal); J69.0 Pneumonitis due to inhalation of food and vomit; J96.00 Acute respiratory failure, unspecified whether with hypoxia or hypercapnia; N17.0 Acute kidney failure with tubular necrosis; R65.21 Severe sepsis with septic shock; I21.4 Non-ST elevation (NSTEMI) myocardial infarction; N13.6 Pyonephrosis; I82.611 Acute embolism and thrombosis of superficial veins of right upper extremity; G93.1 Anoxic brain damage, not elsewhere classified; I46.9 Cardiac arrest, cause unspecified; E78.5 Hyperlipidemia, unspecified; H40.9 Unspecified glaucoma; I12.9 Hypertensive chronic kidney disease with stage 1 through stage 4 chronic kidney disease, or unspecified chronic kidney disease; E11.22 Type 2 diabetes mellitus with diabetic chronic kidney disease; N18.9 Chronic kidney disease, unspecified; E11.51 Type 2 diabetes mellitus with diabetic peripheral angiopathy without gangrene; K56.41 Fecal impaction; G40.909 Epilepsy, unspecified, not intractable, without status epilepticus; K72.90 Hepatic failure, unspecified without coma; R13.10 Dysphagia, unspecified; Z86.73 Personal history of transient ischemic attack (TIA), and cerebral infarction without residual deficits; Z79.4 Long term (current) use of insulin; Z79.899 Other long term (current) drug therapy; Z93.0 Tracheostomy status
CPT/HCPCS: 36415; 36600; 70450-TC; 71045; 80053; 80185-TC; 81000-TC; 82803-TC; 82962; 83605; 83735-TC; 84484; 85025; 85610-TC; 87040-TC; 87070-TC; 87081; 87086; 87186-TC; 87205-TC; 92950; 93005; 93971; 94002; 94003; 94640; 96365; 96366; 96367; 99285; J0461; J1265; J1720; J1940; J2060; J2270; J2405; J2543; J3370; J3480; J3490; J7030; J7050; J7060; J7613; P9041